=== PATIENT | male | born 1925 | race Caucasian/White ===

== ENCOUNTER → 2017-02-09 | Outpatient (CLI) | payer MEDICARE, OTHER ==
[~2017-02-09] MED LIST: ACET160L13 GT; AMIO200T2 GT; APIX5TAB GT; CYAN10009 GT; DIPH25CA84 GT; DORZ10DR15 RIGHT EYE; FERR220E3 GT; FOLI1TAB15 GT; HYDR118S10 GT; INSU100V8 SQ; IPRA3AMP AEROSOL; LATA2.5D7 BOTH EYES; LEVO50TA11 GT; LISI2.5T2 GT; METR500T GT; MICO5POW6 TOP; PYRI100T6 GT; RANI15SY GT; SALI45SP PO; THIA100T13 GT
== END ==
LOC: LABN.KB 11:01
PROVIDERS: ATTEND Family Medicine
DX: R19.5 Other fecal abnormalities (principal)
CPT/HCPCS: 82272

== ENCOUNTER 2017-03-28 18:03 | Inpatient (IN) ==
[2017-03-28] MEDS ORDERED: CEFTRIAXONE 1 G in NS 100 ML IV ONE (18:33)
--- NOTE | 2017-03-28 18:50 | Emergency Department Report ---
Asthma HPI - General Chief Complaint: Upper Respiratory Infection Stated Complaint: Dyspnea Time Seen by Provider: 03/28/17 18:20 Source: patient, RN notes reviewed Mode of arrival: wheelchair Limitations: no limitations - History of Present Illness HPI Narrative: 89yo man presented to the ER today by EMS for dyspnea. Pt has a h/o dyspnea, and uses 3L by NC at home. Today was c/o increasing dyspnea and fatigue; required 5L O2 to keep SaO2 above 88%. Has had a productive cough x months. States that he saw his PCM a few months ago and was dx'ed with 'walking PNA'. Was given meds to help. MD complaint: shortness of breath Onset (ago): month(s) Severity: severe, worse than usual Associated symptoms: productive cough, fever Asthma History: history of frequent attacks Treatments Prior to Arrival: inhaled bronchodilator, inhaled steroid, oxygen - Related Data Current Asthma Therapy: none Home Medications Medication Instructions Recorded Confirmed Amiodarone HCl 200 mg GT DAILY #0 12/09/16 03/28/17 Ferrous Sulfate 220 mg GT DAILY #0 12/09/16 03/28/17 Folic Acid 1 mg GT DAILY #0 12/09/16 03/28/17 Ipratropium/Albuterol Sulfate 1 vial AEROSOL QID PRN #0 12/09/16 03/28/17 [Iprat-Albut 0.5-3(2.5) mg/3 ml] Pyridoxine HCl (Vitamin B6) 100 mg GT DAILY #0 12/09/16 03/28/17 [Pyridoxine HCl] Thiamine HCl 100 mg GT DAILY #0 12/09/16 03/28/17 Cholecalciferol (Vitamin D3) 2,000 unit GT DAILY 03/28/17 03/28/17 [Vitamin D3] Cyanocobalamin (B-12) [Vitamin 1,000 mcg IM DAILY 03/28/17 03/28/17 B-12] Insulin Glargine [Lantus] 10 unit SQ HS 03/28/17 03/28/17 Lactobacillus Rhamnosus GG 1 each GT DAILY 03/28/17 03/28/17 [Culturelle] Levothyroxine Tab [Synthroid] 150 mcg GT DAILY 03/28/17 03/28/17 Mirtazapine 7.5 mg GT HS 03/28/17 03/28/17 Nut.tx.gluc.intoler,Lac-Fr,Soy 1,000 ml PO DAILY 03/28/17 03/28/17 [Glytrol] Omeprazole [Prilosec] 20 mg GT DAILY 03/28/17 03/28/17 Previous Rx's Medication Instructions Recorded diphenhydrAMINE HCl [Benadryl] 25 mg GT HS PRN #30 cap 12/16/16 Allergies Allergy/AdvReac Type Severity Reaction Status Date / Time amoxicillin Allergy Unknown Verified 03/29/17 05:45 vancomycin Allergy Unknown Verified 03/29/17 05:45 Review of Systems All systems: reviewed and negative except as stated Constitutional: Reports: fever Respiratory: Reports: cough PFSH Patient Stated Medical History Dysphagia Yes: HAS G TUBE Hypotension Yes Sleep Apnea Yes Other Respiratory Yes: HYPOXIA- ON 3 L/NC CONTINUOUSLY AT HOME Diabetes Mellitus Type 2 Yes Gastroesophageal Reflux Yes Disease COPD HTN Iron def anemia DM GERD Hypothyroid Insomnia Low Vit D Aspiration Physical Exam - Limitations Limitations: no limitations - General General appearance: alert, in no apparent distress - Head Head exam: atraumatic, normocephalic - Eye Eye exam: Present: normal appearance, PERRL, EOMI. Absent: scleral icterus - ENT ENT exam: Present: normal exam, normal oropharynx, mucous membranes moist, TM's normal bilaterally. Absent: mucous membranes dry - Neck Neck exam: Present: normal inspection, full ROM, trachea midline. Absent: tenderness, lymphadenopathy - Chest Chest inspection: Present: normal inspection, symmetric chest wall rise. Absent : tenderness, rash, abscess - Respiratory Respiratory exam: Present: wheezes, other (Rhonchi). Absent: normal lung sounds bilaterally, respiratory distress - Cardiovascular Cardiovascular exam: Present: regular rate, normal rhythm - Abdominal Exam Abdominal exam: Present: soft, normal bowel sounds. Absent: distention, tenderness, guarding, rebound, rigidity - Extremities Exam Extremities exam: Present: full ROM, normal capillary refill, other (Stasis dermatitis). Absent: tenderness, pedal edema - Back Exam Back exam: Present: normal inspection - Skin Skin exam: Present: warm, dry, intact, normal color, rash (Stasis dermatitis) - Neurological Exam Neurological exam: Present: alert, oriented X3, CN II-XII intact - Psychiatric Psychiatric exam: Present: normal affect, normal mood Course Course Narrative: 89yo man with elevated WBCs, 10% bandemia, low lactate, b/l pleural effusions, and elevated BNP. PaO2 is still low, despite Suspect PNA along with CHF exacerbation. Pt denies COPD, but meds are c/w diagnosis. May simply be a COPD exacerbation. Port score is 149. Will contact hospitalist for likely admission/ treatment. - Consultations Consultation #1: Nino Telemed Time: 20:57 Vital Signs Temperature 101.4 F H 03/28/17 18:03 Pulse Rate 91 03/28/17 18:03 Respiratory Rate 28 H 03/28/17 18:03 Blood Pressure 150/66 H 03/28/17 18:03 Pulse Oximetry 90 03/28/17 18:03 Temperature 97.7 F 03/29/17 04:00 Pulse Rate 75 03/29/17 05:30 Respiratory Rate 31 H 03/29/17 05:30 Blood Pressure 127/70 03/29/17 05:30 Pulse Oximetry 96 03/29/17 03:00 Dyspnea - Differential Diagnosis Differential diagnosis: Likely: Acute exacerbation, Pneumonia, COPD exacerbation , Pulmonary edema systolic, Pulmonary edema dystolic, Pneumothorax - Medical Records Attestation: I reviewed the patient's medical records. - Lab Data Attestation: I reviewed the patient's lab results. Result diagrams: 03/28/17 19:21 03/29/17 04:32 Lab Results 03/28/17 03/28/17 03/28/17 Range/Units 19:21 19:21 19:21 WBC 21.1 H (4.5-11.0) T/MM3 RBC 4.01 L (4.50-5.90) M/MM3 Hgb 13.0 L (13.5-17.5) GM/DL Hct 40.7 L (41-53) % MCV 101.5 H (80-100) UM3 MCH 32.4 (26-34) UUG MCHC 31.9 (31-37) GM/DL RDW Std Deviation 46.8 (36.9-50.2) FL Plt Count 228 (130-400) T/MM3 MPV 11.5 (9.4-12.4) UM3 Immature Gran % (Auto) Not performed Neut % (Auto) Not performed Lymph % (Auto) Not performed Josephine % (Auto) Not performed Eos % (Auto) Not performed Baso % (Auto) Not performed Neut # Not performed Lymph # Not performed Josephine # Not performed Baso # Not performed Abs Immat Gran (auto) Not performed Neutrophils % (Manual) 82.0 H (33-66) % Band Neutrophils % 10.0 H (0-6) % Lymphocytes % (Manual) 5.0 L (23-45) % Reactive Lymphs % 3.0 H (0-0) % Neutrophils # (Manual) 17.3 H (1.8-7.7) T/MM3 Band Neutrophils # 2.1 T/MM3 Lymphocytes # (Manual) 1.1 (1-4.8) T/MM3 Abs React Lymphs (Man) 0.6 H (0-0) T/MM3 RBC Morph Comment Normal INR 1.42 H (0.99-1.21) ABG pH (7.350-7.450) ABG pCO2 (34-45) MMHG ABG pO2 (80-100) MMHG ABG HCO3 (22-26) MEQ/L ABG Total CO2 (23-27) MEQ/L ABG O2 Saturation (95.0-98.0) % ABG Base Excess (-2.0-2.0) MMOL/L O2 Delivery Method FiO2 (liters per min) Turbidity (0-20) Sodium (134-144) MEQ/L Potassium (3.6-5) MEQ/L Chloride (98-107) MEQ/L Carbon Dioxide (22-30) MEQ/L Anion Gap (5-15) MEQ/L BUN (9-20) MG/DL Creatinine (0.8-1.5) MG/DL GFR Calculation BUN/Creatinine Ratio (6-26) RATIO Glucose (75-110) MG/DL Calculated Osmolality (261-280) MOSM/KG Calcium (8.4-10.2) MG/DL Total Bilirubin (0.20-1.30) MG/DL Icterus Index (0-7) AST (17-59) U/L ALT (21-72) U/L Alkaline Phosphatase (38-126) U/L Troponin I 0.022 (0-0.12) ng/ml B-Natriuretic Peptide 1030 H (0-175) pg/mL Total Protein (6.3-8.2) G/DL Albumin (3.5-5.0) G/DL Globulin (2.4-3.6) G/DL Albumin/Globulin Ratio (1.1-2.2) RATIO Plasma Lactate 1.5 (0.6-2.2) MMOL/L Specimen Hemolysis 15 (0-25) Ur Collection Type Urine Color (YELLOW) Urine Clarity Urine pH (5.0-8.0) Ur Specific [place] (1.015-1.025) Urine Protein (NEGATIVE) Urine Glucose (UA) (NEGATIVE) Urine Ketones (NEGATIVE) Urine Occult Blood (NEGATIVE) Urine Nitrate (NEGATIVE) Urine Bilirubin (NEGATIVE) Urine Urobilinogen (NORMAL) EU/DL Ur Leukocyte Esterase (NEGATIVE) Urinalysis Comment 03/28/17 03/28/17 03/28/17 Range/Units 19:21 19:43 20:29 WBC (4.5-11.0) T/MM3 RBC (4.50-5.90) M/MM3 Hgb (13.5-17.5) GM/DL Hct (41-53) % MCV (80-100) UM3 MCH (26-34) UUG MCHC (31-37) GM/DL RDW Std Deviation (36.9-50.2) FL Plt Count (130-400) T/MM3 MPV (9.4-12.4) UM3 Immature Gran % (Auto) Neut % (Auto) Lymph % (Auto) Josephine % (Auto) Eos % (Auto) Baso % (Auto) Neut # Lymph # Josephine # Baso # Abs Immat Gran (auto) Neutrophils % (Manual) (33-66) % Band Neutrophils % (0-6) % Lymphocytes % (Manual) (23-45) % Reactive Lymphs % (0-0) % Neutrophils # (Manual) (1.8-7.7) T/MM3 Band Neutrophils # T/MM3 Lymphocytes # (Manual) (1-4.8) T/MM3 Abs React Lymphs (Man) (0-0) T/MM3 RBC Morph Comment INR (0.99-1.21) ABG pH 7.440 (7.350-7.450) ABG pCO2 42 (34-45) MMHG ABG pO2 55 L (80-100) MMHG ABG HCO3 29 H (22-26) MEQ/L ABG Total CO2 29.8 H (23-27) MEQ/L ABG O2 Saturation 89.0 L (95.0-98.0) % ABG Base Excess 3.9 H (-2.0-2.0) MMOL/L O2 Delivery Method Nasal cannula, liter FiO2 (liters per min) 4 Turbidity 20 (0-20) Sodium 145 H (134-144) MEQ/L Potassium 4.9 (3.6-5) MEQ/L Chloride 105 (98-107) MEQ/L Carbon Dioxide 25 (22-30) MEQ/L Anion Gap 15 (5-15) MEQ/L BUN 46.0 H (9-20) MG/DL Creatinine 0.8 (0.8-1.5) MG/DL GFR Calculation 91 BUN/Creatinine Ratio 58 H (6-26) RATIO Glucose 258 H (75-110) MG/DL Calculated Osmolality 300 H (261-280) MOSM/KG Calcium 9.8 (8.4-10.2) MG/DL Total Bilirubin 0.40 (0.20-1.30) MG/DL Icterus Index 2 (0-7) AST 45 (17-59) U/L ALT 109 H (21-72) U/L Alkaline Phosphatase 178 H (38-126) U/L Troponin I (0-0.12) ng/ml B-Natriuretic Peptide (0-175) pg/mL Total Protein 7.0 (6.3-8.2) G/DL Albumin 3.8 (3.5-5.0) G/DL Globulin 3.2 (2.4-3.6) G/DL Albumin/Globulin Ratio 1.2 (1.1-2.2) RATIO Plasma Lactate (0.6-2.2) MMOL/L Specimen Hemolysis 15 (0-25) Ur Collection Type Urine, catheter Urine Color Yellow (YELLOW) Urine Clarity Clear Urine pH 5.5 (5.0-8.0) Ur Specific [place] 1.015 (1.015-1.025) Urine Protein Negative (NEGATIVE) Urine Glucose (UA) Negative (NEGATIVE) Urine Ketones Negative (NEGATIVE) Urine Occult Blood Negative (NEGATIVE) Urine Nitrate Negative (NEGATIVE) Urine Bilirubin Negative (NEGATIVE) Urine Urobilinogen 0.2 (NORMAL) EU/DL Ur Leukocyte Esterase Negative (NEGATIVE) Urinalysis Comment Microscopic not ind. - Radiology Data Attestation: I reviewed the patient's radiology results. B/l pleural effusions. - ECG Data Tracing #1 I reviewed this ECG and interpreted as documented below: DC/QRS/ST segment/T wave changes: non-specific ST-T wave changes Conduction abnormalities present: RBBB, 1st degree AV block Additional comments: Right axis deviation. Critical Care Time Critical Care Time: Yes Total Critical Care Time: 45 Attestation: 45 min of critical care time assigned to this case due to its urgency, complexity of decision making, need for continued patient re-evaluation, or resources devoted to stabilizing the patient. Disposition Clinical Impression: SEPSIS Disposition: 02 To [facility] [place] Acute Care Condition: Stable Time of Disposition: 21:30 - Seen By: physician
[2017-03-28] MEDS: 1/2 NS 1,000 ML IV SCH (19:10)
[2017-03-28] MEDS ORDERED: FUROSEMIDE 40 MG/4 ML INJECTION IVP ONE (19:16)
[2017-03-28] MEDS: LEVOFLOXACIN PREMIX 750 MG/150 ML BAG IV SCH (20:12)
[2017-03-28] MEDS ORDERED: ONDANSETRON 4 MG/2 ML INJECTION IVP PRN (21:06)
[2017-03-28] MEDS ORDERED: PROMETHAZINE 25 MG INJECTION IVP PRN (21:06)
[2017-03-28] MEDS ORDERED: NS 1,000 ML IV SCH (21:15)
--- NOTE | 2017-03-28 23:06 | History & Physical Report ---
History of Present Illness Date: Chief complaint: shortness of breath/cough HPI: Please note that the patient was seen with nursing assistance on 03/28/2017. Mr. Philip is a 89yo man with history of HTN, diastolic CHF, DM2 on insulin, dysphagia from ? with feeding tube, chronic hypoxic respiratory failure from ?, and hypothyroidism presenting with 1-2 days of cough at his SNF with then today fever. Patient denies pain or nausea, but does recognize cough and fever. He denies medication changes, but is not greatly informed regarding his past history or medicaitons, and states "they don't tell me anything." Review of Systems ROS unobtainable: due to mental status Review of systems: 10+ systems negative aside form in HPI [facility] Medical History Updates: Essential HTN. DM2. Hypothyroidism. Chronic hypoxic respiratory failure Family History: CAD Smoking status: Unknown if ever smoked Alcohol intake frequency: does not drink Current occupational exposures/hazards: No Does patient use chewing tobacco?: No Current residence[place] Medications Home Medications Medication Instructions Recorded Confirmed Type Amiodarone HCl 200 mg GT DAILY #0 12/09/16 03/28/17 History Ferrous Sulfate 220 mg GT DAILY #0 12/09/16 03/28/17 History Folic Acid 1 mg GT DAILY #0 12/09/16 03/28/17 History Ipratropium/Albuterol Sulfate 1 vial AEROSOL QID PRN #0 12/09/16 03/28/17 History [Iprat-Albut 0.5-3(2.5) mg/3 ml] Pyridoxine HCl (Vitamin B6) 100 mg GT DAILY #0 12/09/16 03/28/17 History [Pyridoxine HCl] Thiamine HCl 100 mg GT DAILY #0 12/09/16 03/28/17 History Cholecalciferol (Vitamin D3) 2,000 unit GT DAILY 03/28/17 03/28/17 History [Vitamin D3] Cyanocobalamin (B-12) [Vitamin 1,000 mcg IM DAILY 03/28/17 03/28/17 History B-12] Insulin Glargine [Lantus] 10 unit SQ HS 03/28/17 03/28/17 History Lactobacillus Rhamnosus GG 1 each GT DAILY 03/28/17 03/28/17 History [Culturelle] Levothyroxine Tab [Synthroid] 150 mcg GT DAILY 03/28/17 03/28/17 History Mirtazapine 7.5 mg GT HS 03/28/17 03/28/17 History Nut.tx.gluc.intoler,Lac-Fr,Soy 1,000 ml PO DAILY 03/28/17 03/28/17 History [Glytrol] Omeprazole [Prilosec] 20 mg GT DAILY 03/28/17 03/28/17 History Allergies Allergy/AdvReac Type Severity Reaction Status Date / Time amoxicillin Allergy Unknown Verified 10/28/16 17:09 vancomycin Allergy Unknown Verified 10/28/16 17:09 Exam Vital Signs: Temp Pulse Resp BP Pulse Ox 98.0 F 92 30 H 157/92 H 92 03/28/17 22:15 03/28/17 22:20 03/28/17 22:15 03/28/17 22:15 03/28/17 22:53 Telemetry Rhythm: Sinus Rhythm Height: 1.73 m Weight: 62.9 kg Body Mass Index: 21.0 - Constitutional Present: no acute distress, well developed, disheveled, cooperative - Routine HEENT Exam Head: Present: normocephalic Eye: Present: EOMI - Routine Respiratory Exam Present: decreased breath sounds, rhonchi - Routine Cardiovascular Exam Present: RRR, murmur - Routine Abdominal Exam Present: soft, normoactive bowel sounds Comments: PEG tube in place - Routine Extremities Exam Absent: cyanosis - Routine Neurological Exam Present: alert, oriented X3, moving all extremities Results - Labs CBC & Chem 7: 03/28/17 19:21 03/28/17 19:21 - ABG Interpretation ABG results: 7.44/42/55 on 5L instead of normal 3 Assessment and Plan (1) HCAP (healthcare-associated pneumonia) Current visit: Yes Status: Acute Due to allergies start with Rocephin and Levaquin, although Azactam a consideration. RT protocols, NPO, Nebs, cautious 1/2 NS with not severe sepsis but near hypernatremia as well with tube feeds/no drink to thirst (2) Sepsis Current visit: Yes Status: Acute not severe sepsis, monitor with BP fine. Note T over 38.3 with Pulse over 90 and WBC 21.1 (3) Chronic respiratory failure with hypoxia Current visit: Yes Status: Acute acute worsening, monitor in ICU as full code by hx. (4) Hypothyroid Current visit: Yes Status: Acute same med (5) Dysphagia Current visit: Yes Status: Acute uncertain cause, aspiraton risk most definitely (6) DM2 (diabetes mellitus, type 2) Current visit: Yes Status: Acute SSI, CBGs, long acting insulin 10units qhs and monitor with A1C in the AM Sepsis Assessment - Focused Exam Vital Signs Temp Pulse Resp BP Pulse Ox 03/28/17 22:53 92 03/28/17 22:20 92 03/28/17 22:15 98.0 F 92 30 H 157/92 H 90 Hospital Course Summary Disclaimer: The visit summary below is not to be considered part of the above Progress Note.
[2017-03-28] MEDS: IPRATROPIUM/ALBUTEROL 2.5mg-0.5mg/3ml NEB IH SCH (23:35)
[2017-03-29] MEDS ORDERED: HYDRALAZINE 20 MG/ML INJECTION IVP PRN (00:27)
[2017-03-29] MEDS: IPRATROPIUM/ALBUTEROL 2.5mg-0.5mg/3ml NEB IH SCH ×4 (06:57→21:03)
[2017-03-29] MEDS: 1/2 NS 1,000 ML IV SCH ×3 (08:49→22:12)
[2017-03-29] MEDS: AMIODARONE 200 MG TABLET GT SCH (09:07)
[2017-03-29] MEDS: LEVOTHYROXINE 150 MCG TABLET GT SCH (09:07)
--- NOTE | 2017-03-29 09:11 | XRay Report ---
INDICATION: Sepsis w/u PROCEDURE: CHEST 2-VIEWS UPRIGHT (PA & LAT) Encounter: Initial COMPARISON: December 11, 2016 FINDINGS: Increasing small bilateral pleural effusions. Bibasilar airspace opacities are similar. No pneumothorax. Heart size and mediastinal contours are stable. Pulmonary vascularity is more congested. Impression: Worsening in moderate congestive failure. .
[2017-03-29] MEDS ORDERED: LEVOFLOXACIN PREMIX 750 MG/150 ML BAG IV SCH (10:00)
[2017-03-29] MEDS: CEFTRIAXONE 1 G in NS 100 ML IV SCH (11:18)
--- NOTE | 2017-03-29 12:07 | Progress Note ---
Subjective: is sleepy this am not answering questions clearly. Nurse reports the pt was recently awake and responding well. Objective Vital signs: Temp Pulse Resp BP Pulse Ox 97.7 F 79 110 H 133/66 99 03/29/17 04:00 03/29/17 06:00 03/29/17 11:15 03/29/17 06:00 03/29/17 11:15 Body Mass Index: 21.0 - Constitutional Present: no acute distress, well developed, disheveled, cooperative - Routine HEENT Exam Head: Present: normocephalic, atraumatic Eye: Absent: scleral injection ENT: Present: mucous membranes moist - Routine Respiratory Exam Present: decreased breath sounds, wheezes - Routine Cardiovascular Exam Present: RRR. Absent: murmur - Routine Abdominal Exam Present: soft, non tender - Routine Extremities Exam Present: edema. Absent: cyanosis, clubbing - Routine Skin Exam Present: intact, dry Results - Labs CBC & Chem 7: 03/28/17 19:21 03/29/17 04:32 Labs: BMP 03/29/17 04:32 Sodium 145 H Potassium 3.8 D Chloride 110 H Carbon Dioxide 24 BUN 39.0 H Creatinine 0.8 Glucose 183 H Calcium 7.6 L D Cardiac Enzymes 03/29/17 Range/Units 04:32 Troponin I 0.106 D (0-0.12) ng/ml Assessment and Plan (1) HCAP (healthcare-associated pneumonia) Current visit: Yes Status: Acute (2) Sepsis Current visit: Yes Status: Acute (3) Chronic respiratory failure with hypoxia Current visit: Yes Status: Acute (4) Hypothyroid Current visit: Yes Status: Acute (5) Dysphagia Current visit: Yes Status: Acute (6) DM2 (diabetes mellitus, type 2) Current visit: Yes Status: Acute Assessment and Plan: Sepsis -Likely 2/2 CAP with clinical sx's although CXR does not show clear infiltrate but difficult to assess d/t effusions -WBC 21K, tachypnea -Order-->Blood & Sputum GS/cx's, procalcitoin -Tx-->Rocephin + Levaquin D1 -BPs stable, likely fluid overloaded with CHF component, will try careful diuresis Acute on chronic hypoxic respiratory failure -COPD exacerbation? vs. CHF exacerbation? -Unclear etiology for chronic, unclear if hx of COPD? -Last echo 09/2016 showed EF 50%, BNP 1030, will order echo, will try bumex 1mg BID and monitor UOP -Reportedly uses 3L O2 at home, was on 8L overnight but currently at 4L -Improving, cont. RCAT, CAP tx per above Afib -Cont. home amio -No BB?, CHADVASC 4 (hx of DM and HTN listed in previous notes but no meds noted on home meds) -No ASA or anti-coagulation? Hypothyroid -Cont. home levothyroxine Ppx -Lovenox -Cont. home PPI Sepsis Assessment - Evaluation Sepsis screening result: No Definite Risk - Focused Exam Vital Signs Temp Pulse Resp BP Pulse Ox 03/29/17 11:15 110 H 99 03/29/17 06:50 24 100 03/29/17 06:28 28 H 03/29/17 06:00 79 28 H 133/66 97 03/29/17 05:30 75 31 H 127/70 03/29/17 04:30 82 30 H 149/82 H 03/29/17 04:00 97.7 F 80 28 H 149/82 H 03/29/17 03:00 71 28 H 136/98 H 96 03/29/17 02:30 70 28 H 134/59 95 03/29/17 02:00 71 35 H 102/57 94 03/29/17 01:45 73 28 H 103/61 96 03/29/17 01:30 76 32 H 104/61 95 03/29/17 01:15 78 34 H 122/58 93 03/29/17 01:00 80 40 H 184/79 H 95 03/29/17 00:45 80 42 H 188/89 H 97 03/29/17 00:30 82 42 H 182/83 H 81 L 03/29/17 00:15 84 40 H 201/101 H 99 Respiratory exam: Present: decreased breath sounds, rhonchi Cardiovascular exam: Present: RRR, murmur Hospital Course Summary Disclaimer: The visit summary below is not to be considered part of the above Progress Note.
[2017-03-29] MEDS ORDERED: IPRATROPIUM/ALBUTEROL 2.5mg-0.5mg/3ml NEB AEROSOL PRN (12:36)
[2017-03-29] MEDS: ENOXAPARIN 40 MG/0.4 ML INJECTION SQ SCH (17:12)
[2017-03-29] MEDS ORDERED: LEVOFLOXACIN PREMIX 750 MG/150 ML BAG IV ONE (18:29)
[2017-03-29] MEDS: LEVOFLOXACIN PREMIX 750 MG/150 ML BAG IV SCH (20:10)
[2017-03-29] MEDS: MIRTAZAPINE 15 MG TABLET PO SCH (22:43)
[2017-03-29] MEDS: INSULIN GLARGINE 100unit/ml INJECTION SQ SCH ×2 (22:44→22:51)
[2017-03-30] MEDS: DiphenhydrAMINE 25 MG CAPSULE PO PRN ×2 (01:19→21:54)
[2017-03-30] MEDS: 1/2 NS 1,000 ML IV SCH (02:21)
[2017-03-30] MEDS: LEVOTHYROXINE 150 MCG TABLET GT SCH ×2 (05:19→05:43)
[2017-03-30] MEDS: AMIODARONE 200 MG TABLET GT SCH ×2 (05:20→21:51)
[2017-03-30] MEDS ORDERED: D5-1/2NS 1,000 ML IV SCH (06:30)
[2017-03-30] MEDS: IPRATROPIUM/ALBUTEROL 2.5mg-0.5mg/3ml NEB IH SCH ×4 (06:36→19:52)
[2017-03-30] MEDS: PYRIDOXINE 100mg TABLET GT SCH (09:09)
[2017-03-30] MEDS: OMEPRAZOLE 20 MG CAPSULE GT SCH (09:09)
[2017-03-30] MEDS: FOLIC ACID 1 MG TABLET GT SCH (09:09)
[2017-03-30] MEDS: CEFTRIAXONE 1 G in NS 100 ML IV SCH (09:10)
--- NOTE | 2017-03-30 10:03 | Progress Note ---
Subjective: Pt seems to be doing better this am. Pt is alert and oriented and reports he feels better. Denies any cp, n/v/d, f/c. Objective Vital signs: Temp Pulse Resp BP Pulse Ox 97.5 F 92 28 H 96/54 100 03/30/17 08:00 03/30/17 09:25 03/30/17 09:25 03/30/17 09:15 03/30/17 09:25 Weight: 64 kg - Constitutional Present: no acute distress, well developed, disheveled, cooperative - Routine HEENT Exam Eye: Present: EOMI. Absent: scleral injection ENT: Present: mucous membranes moist - Routine Respiratory Exam Present: decreased breath sounds. Absent: wheezes - Routine Cardiovascular Exam Present: RRR, no murmur - Routine Abdominal Exam Present: soft, non distended, non tender - Routine Extremities Exam Present: edema. Absent: cyanosis, clubbing - Routine Skin Exam Present: dry. Absent: erythema Results - Labs CBC & Chem 7: 03/30/17 04:52 03/30/17 04:52 Labs: Short CBC 03/29/17 03/30/17 Range/Units 04:32 04:52 WBC 19.1 H 11.6 H (4.5-11.0) T/MM3 Hgb 10.9 L D 9.8 L (13.5-17.5) GM/DL Hct 34.8 L D 30.6 L D (41-53) % Plt Count 189 176 (130-400) T/MM3 BMP 03/30/17 04:52 Sodium 140 Potassium 3.8 Chloride 105 Carbon Dioxide 24 BUN 44.0 H Creatinine 1.0 D Glucose 72 L Calcium 8.8 D Liver Function 03/30/17 Range/Units 04:52 Albumin 2.9 L (3.5-5.0) G/DL Assessment and Plan (1) HCAP (healthcare-associated pneumonia) Current visit: Yes Status: Acute (2) Sepsis Current visit: Yes Status: Acute (3) Chronic respiratory failure with hypoxia Current visit: Yes Status: Acute (4) Hypothyroid Current visit: Yes Status: Acute (5) Dysphagia Current visit: Yes Status: Acute (6) DM2 (diabetes mellitus, type 2) Current visit: Yes Status: Acute Assessment and Plan: Sepsis -Much improved -Likely 2/2 CAP with clinical sx's although CXR does not show clear infiltrate but difficult to assess d/t effusions -Blood cx's NGTD, Sputum cx's-->Psuedomonas, await sensitivities -Tx-->Rocephin + Levaquin D2 -BPs stable, likely fluid overloaded with CHF component, will try careful diuresis Acute on chronic hypoxic respiratory failure -COPD exacerbation? vs. CHF exacerbation? -Unclear etiology for chronic hypoxia, unclear if hx of COPD? -Last echo 09/2016 showed EF 50%, BNP 1030 on admission now 8K, echo pending, will try bumex 1mg again today -Reportedly uses 3L O2 at home, currently on 4L O2 -Improving, cont. RCAT, CAP tx per above Afib -Cont. home amio -No BB?, CHADVASC 4 (hx of DM and HTN listed in previous notes but no meds noted on home meds) -No ASA or anti-coagulation? Hypothyroid -Cont. home levothyroxine Ppx -Lovenox -Cont. home PPI Sepsis Assessment - Evaluation Sepsis screening result: No Definite Risk - Focused Exam Vital Signs Temp Pulse Resp BP Pulse Ox 03/30/17 09:25 92 28 H 100 03/30/17 09:20 81 24 100 03/30/17 09:15 96/54 03/30/17 09:10 76 28 H 97 03/30/17 08:00 97.5 F 83 27 H 101/54 98 03/30/17 07:53 84 03/30/17 06:38 20 97 03/30/17 04:05 98.1 F 96 32 H 84/53 94 03/30/17 04:00 110 H 03/30/17 00:10 98.6 F 89 33 H 92/51 97 03/30/17 00:00 86 Respiratory exam: Present: decreased breath sounds, rhonchi Cardiovascular exam: Present: RRR, murmur Hospital Course Summary Disclaimer: The visit summary below is not to be considered part of the above Progress Note. Hospital Course: 03/31/2017 Pt was admitted by telemedicine team overnight for 1-2 days of cough and sputum production. Pt qualified for sepsis criteria and was admitted for sepsis 2/2 pna. 03/30/17 -Pt improving, sputum cx grew out pseudomonas, will cont. current abx until sensitivities result, will plan on getting pt out of icu later today. Will continue to do gentle diuresis to try to get pt to euvolemia.
[2017-03-30] MEDS: ENOXAPARIN 40 MG/0.4 ML INJECTION SQ SCH (10:19)
[2017-03-30] MEDS: LEVOFLOXACIN PREMIX 750 MG/150 ML BAG IV SCH (21:08)
[2017-03-30] MEDS: MIRTAZAPINE 15 MG TABLET PO SCH (21:48)
[2017-03-30] MEDS: INSULIN GLARGINE 100unit/ml INJECTION SQ SCH (21:54)
[2017-03-31] MEDS: SALINE FLUSH 10ml SYRINGE IVF PRN ×2 (00:10→21:41)
[2017-03-31] MEDS: LEVOTHYROXINE 150 MCG TABLET GT SCH (06:12)
[2017-03-31] MEDS: IPRATROPIUM/ALBUTEROL 2.5mg-0.5mg/3ml NEB IH SCH ×2 (06:32→20:15)
--- NOTE | 2017-03-31 07:59 | XRay Report ---
Indication: follow up pna/effusion PROCEDURE: XR chest 1V: Encounter: Initial Comparison: March 28, 2017 Findings: Persistent lower lobe airspace consolidation, right greater than left. Small bilateral pleural effusions are grossly stable. Upper lung michelle are clear. No pneumothorax. Heart size and mediastinal contours are stable. Pulmonary vascularity is less congested. Old rib fractures. Impression: Decreasing pulmonary edema with persistent lower lobe infiltrates possibly due to pneumonia. .
[2017-03-31] MEDS: FOLIC ACID 1 MG TABLET GT SCH (08:03)
[2017-03-31] MEDS: AMIODARONE 200 MG TABLET GT SCH ×2 (08:06→21:20)
[2017-03-31] MEDS: PYRIDOXINE 100mg TABLET GT SCH (08:07)
[2017-03-31] MEDS: ENOXAPARIN 40 MG/0.4 ML INJECTION SQ SCH (08:08)
[2017-03-31] MEDS: OMEPRAZOLE 20 MG CAPSULE GT SCH (08:08)
[2017-03-31] MEDS ORDERED: AMIODARONE 200 MG TABLET GT SCH (09:00)
[2017-03-31] MEDS: CEFTRIAXONE 1 G in NS 100 ML IV SCH (12:17)
[2017-03-31] MEDS: BUMETANIDE 1 MG TABLET PO SCH (12:57)
--- NOTE | 2017-03-31 14:17 | Progress Note ---
Subjective: Pt alert and oriented this am and reports he feels better. Still does report cough and sputum production but sob is better and he is currently off O2. Denies any cp, n/v/d, f/c. Objective Vital signs: Temp Pulse Resp BP Pulse Ox 98.4 F 81 18 108/58 95 03/31/17 13:30 03/31/17 13:30 03/31/17 13:30 03/31/17 13:30 03/31/17 13:30 Height: 1.73 m Weight: 64 kg Body Mass Index: 21.4 - Constitutional Present: no acute distress, well developed, cooperative - Routine HEENT Exam Eye: Absent: conjunctival icterus, scleral injection - Routine Respiratory Exam Present: decreased breath sounds. Absent: respiratory distress, stridor, wheezes - Routine Cardiovascular Exam Present: RRR. Absent: murmur - Routine Abdominal Exam Present: soft, non tender. Absent: distended - Routine Extremities Exam Present: edema. Absent: cyanosis, clubbing - Routine Skin Exam Present: dry. Absent: cyanosis, erythema Results - Labs CBC & Chem 7: 03/31/17 05:07 03/31/17 05:07 Labs: Short CBC 03/31/17 Range/Units 05:07 WBC 7.0 (4.5-11.0) T/MM3 Hgb 10.0 L (13.5-17.5) GM/DL Hct 32.0 L (41-53) % Plt Count 177 (130-400) T/MM3 BMP 03/31/17 05:07 Sodium 144 Potassium 3.4 L Chloride 107 Carbon Dioxide 26 BUN 42.0 H Creatinine 1.1 Glucose 98 Calcium 9.1 Liver Function 03/31/17 Range/Units 05:07 Albumin 2.9 L (3.5-5.0) G/DL Assessment and Plan (1) HCAP (healthcare-associated pneumonia) Current visit: Yes Status: Acute (2) Sepsis Current visit: Yes Status: Acute (3) Chronic respiratory failure with hypoxia Current visit: Yes Status: Acute (4) Hypothyroid Current visit: Yes Status: Acute (5) Dysphagia Current visit: Yes Status: Acute (6) DM2 (diabetes mellitus, type 2) Current visit: Yes Status: Acute Assessment and Plan: Sepsis -Resolved -Likely 2/2 CAP with cxr showing likely right sided infiltrate and clinically pt fits pna -Blood cx's NGTD, Sputum cx's-->Psuedomonas and Haemophilus Infl., awaiting sensitivities -Tx-->Rocephin D3 + Levaquin(switching to PO) D3, can likely do levaquin but will await final sensitivities on both organisms before stopping rocephin -BPs stable, likely fluid overloaded with CHF component, will try careful diuresis Acute on chronic hypoxic respiratory failure -COPD exacerbation? vs. CHF exacerbation? -Unclear etiology for chronic hypoxia, unclear if hx of COPD? -Last echo 09/2016 showed EF 50%, BNP 1030 on admission now 8K, echo pending -Daily Bumex 1mg seems to have helped, CXR improved -Reportedly uses 3L O2 at home, currently on RA -Improving, cont. RCAT, CAP tx per above Afib -Pt was intermittently getting hypotensive/RVR so increased Amio to 200mg BID--> doing much better now -No BB?, CHADVASC 4 (if counting hx of DM and HTN as listed in previous notes but no meds noted on home meds) -No ASA or anti-coagulation? -Pt does have AV block on ECG so BB possibly could make that worse Hypothyroid -Cont. home levothyroxine Ppx -Lovenox -Cont. home PPI Sepsis Assessment - Evaluation Sepsis screening result: No Definite Risk - Focused Exam Vital Signs Temp Pulse Resp BP Pulse Ox 03/31/17 13:30 98.4 F 81 18 108/58 95 03/31/17 11:20 25 H 98 03/31/17 11:00 120/58 03/31/17 10:30 119/56 03/31/17 10:00 118/56 03/31/17 09:30 110/73 03/31/17 09:00 106/59 03/31/17 08:30 95/50 03/31/17 08:00 103/56 03/31/17 07:30 110/55 03/31/17 07:00 114/53 03/31/17 06:30 105/54 03/31/17 06:25 26 H 98 03/31/17 06:00 114/62 03/31/17 05:30 112/55 03/31/17 05:00 102/52 06/06/17 04:30 102/55 03/31/17 04:08 117/62 03/31/17 04:00 98.1 F 108 H 45 H 117/62 93 03/31/17 03:30 98/53 03/31/17 03:00 90/51 03/31/17 02:30 92/54 Respiratory exam: Present: decreased breath sounds, rhonchi Cardiovascular exam: Present: RRR, murmur Capillary refill: > 3 Seconds Hospital Course Summary Disclaimer: The visit summary below is not to be considered part of the above Progress Note. Hospital Course: 03/31/2017 Pt was admitted by telemedicine team overnight for 1-2 days of cough and sputum production. Pt qualified for sepsis criteria and was admitted for sepsis 2/2 pna. 03/30/17 -Pt improving, sputum cx grew out pseudomonas, will cont. current abx until sensitivities result, will plan on getting pt out of icu later today. Will continue to do gentle diuresis to try to get pt to euvolemia. 03/31/17 -Pt seems to be doing great today as he is alert and oriented and conversant. Sputum cx grew out psuedomonas and Haemophilus, sensitivities for Haemophilus is pending, will cont. levaquin and rocehpin for now. Pt's BP were on the low end likely 2/2 poorly controlled afib so kept pt in the icu one more night and amio was increased and since then they have done well. Pt will be transferred to floor today and possibly can be discharged tomorrow. Decision needs to be made about anti-coagulation for pt for afib on discharge, unclear who is managing pt's afib.
[2017-03-31] MEDS ORDERED: POTASSIUM CHLORIDE 20 MEQ/15 ML ORAL LIQUID GT ONE (15:29)
[2017-03-31] MEDS: MIRTAZAPINE 15 MG TABLET PO SCH (21:19)
[2017-03-31] MEDS: INSULIN GLARGINE 100unit/ml INJECTION SQ SCH (21:40)
[2017-04-01] MEDS: LEVOTHYROXINE 150 MCG TABLET GT SCH (05:29)
[2017-04-01] MEDS ORDERED: LEVOFLOXACIN 750 MG TABLET PO SCH (06:30)
[2017-04-01] MEDS: ENOXAPARIN 40 MG/0.4 ML INJECTION SQ SCH (08:27)
[2017-04-01] MEDS: PYRIDOXINE 100mg TABLET GT SCH (08:30)
[2017-04-01] MEDS: BUMETANIDE 1 MG TABLET PO SCH (08:30)
[2017-04-01] MEDS: OMEPRAZOLE 20 MG CAPSULE GT SCH (08:32)
[2017-04-01] MEDS: FOLIC ACID 1 MG TABLET GT SCH (08:33)
[2017-04-01] MEDS ORDERED: AMIODARONE 200 MG TABLET GT SCH (09:00)
[2017-04-01] MEDS ORDERED: LANSOPRAZOLE SOLU-TAB 15 MG TABLET PO SCH (09:00)
[2017-04-01] MEDS: CEFTRIAXONE 1 G in NS 100 ML IV SCH (09:55)
--- NOTE | 2017-04-01 11:10 | Echocardiogram ---
DATE 03/30/2017 INDICATION Congestive heart failure. TECHNICAL QUALITY: Technically fair 2D, M-mode and Doppler echocardiographic images were submitted for interpretation. FINDINGS 1. CARDIAC CHAMBERS. Left -sided cardiac chamber are normal in size. Left atrium measures 3.9 cm. Right-sided chambers appear somewhat prominent without enlargement based on measurements. Aortic root diameter is normal. 2. LV FUNCTION. Wall thickness is normal. Wall motion analysis is normal. The left ventricle actually is hyperdynamic. Ejection fraction is estimated at 75-80 %. RV contractility appears good. 3. VALVES. Aortic valve is calcified. Valve opening is normal. Mitral valve exhibits mild sclerosis, normal valve excursion. Tricuspid valve structure and motion appear normal, normal valve excursion. 4. DOPPLER. Doppler shows trace regurgitation involving all four valves. Normal flow velocities throughout. Mild diastolic dysfunction Grade I/IV. 5. Small circumferential pericardial effusion is present without a tamponade physiology. Left-sided pleural effusion is present. IMPRESSION 1. Normal LV systolic function with mild diastolic dysfunction, normal for age. Ejection fraction of 75%. 2. Sclerotic changes of the aortic and mitral valves. 3. No significant valvular dysfunction. 4. Small pericardial effusion without tamponade. 5. Systolic PA pressure is estimated at 30 mmHg. MTDD
--- NOTE | 2017-04-01 11:38 | Discharge Summary ---
Discharge Information Date of admission: 03/28/17 21:06 Anticipated date of discharge: 04/01/17 Attending Physician: Don Gonzales MD Primary care physician: Harry Guillen MD - Discharge Diagnosis (1) HCAP (healthcare-associated pneumonia) Problem Details: Pseudomonas and H. influenza Status: Acute (2) Acute and chronic respiratory failure ([id number]) Qualifiers: Respiratory failure complication: hypoxia Qualified Code(s): J96.21 - Acute and chronic respiratory failure with hypoxia Status: Acute (3) Sepsis Status: Acute (4) Atrial fibrillation Qualifiers: Atrial fibrillation type: chronic Qualified Code(s): I48.2 - Chronic atrial fibrillation Problem Details: intermittent RVR with hypotension Status: Chronic (5) Chronic respiratory failure with hypoxia Status: Chronic (6) Hypothyroid Qualifiers: Hypothyroidism type: unspecified Qualified Code(s): E03.9 - Hypothyroidism , unspecified Status: Chronic (7) Dysphagia Qualifiers: Dysphagia type: unspecified Qualified Code(s): R13.10 - Dysphagia, unspecified Status: Chronic (8) DM2 (diabetes mellitus, type 2) Qualifiers: Diabetes mellitus complication status: with kidney complications Diabetes mellitus complication detail: with chronic kidney disease 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 No significant valvular dysfunction was present. PA pressure 30 mm. - Laboratory Labs: 04/01/17 04:34 04/01/17 04:34 Admission white count 21.1 with 82% neutrophils, 10% bands, 5% lymphocytes, 3% reactive lymphocytes. Hemoglobin 13.0 on admission. Blood gas on admission 7.44/42/55/26 sat 89% on 4L O2. BNP 1030 on admission increasing to 8960 the following day. Lactic acid and procalcitonin were minimally elevated on admission at 0.8 and 1.98 respectively. - Microbiology Blood cultures drawn 03/28 2 negative at discharge. Urine culture from admission with low colony count corynebacterium species consistent with contaminant. Sputum culture obtained 03/28 Microbiology 03/28/17 19:23 Sputum, Expectorated Gram Stain - Final 03/28/17 19:23 Sputum, Expectorated Sputum Culture - Final Pseudomonas aeruginosa-sensitive to Levaquin Haemophilus influenzae Normal Respiratory Yadira - Radiology Radiology: Chest x-ray on admission revealed increased pulmonary vascularity and questionable worsening CHF. Follow-up film on 03/31 demonstrated improvement in vascular markings but persistent left lower lobe infiltrate suggestive of pneumonia. History of Present Illness HPI: Mr. Philip is an 89-year-old male with history of hypertension, diastolic CHF, diabetes mellitus on insulin, dysphasia with a feeding tube, and chronic hypoxic respiratory failure. He presented with 1-2 days of cough from a [facility] facility followed by onset of fever and worsening hypoxia. Oxygen had increased from 3 L chronically to 5 L to maintain saturation above 88% at the nursing facility. Patient denied pain or nausea but was aware of increased fever in conjunction with worsening cough. He denied recent medication changes. Marked leukocytosis with left shift was present on evaluation in the emergency room. Hospital Course Hospital course: Patient was admitted to the ICU with pneumonia, sepsis, and acute/chronic hypoxic respiratory failure. He was initially treated with Rocephin and Levaquin in conjunction with hypotonic fluids due to presence of hypernatremia on presentation. Up to 8 L supplemental oxygen was necessary to maintain adequate oxygenation on admission. Nutritional support with tube feedings was continued. Chest x-ray on admission did not reveal focal infiltrate however clinical signs and symptoms were consistent with pneumonia and antibiotics continued throughout the hospitalization. Sputum Gram stain demonstrated many neutrophils and culture was positive for moderate growth of Pseudomonas and heavy growth of Haemophilus influenza. Dual antibiotics were continued through at which time they were narrowed to Levaquin as a single antibiotic to complete 1 week therapy after discharge to [facility] [place] [facility]. On second hospital day the patient was noted to be fluid overloaded and was diuresed. Echocardiogram obtained demonstrating preserved LV function. The patient was in atrial fibrillation as has been true since September 2016. Oxygenation improved progressively with treatment of pneumonia and diuresis. Chest x-ray demonstrated improvement in vascular markings with diuresis and he is discharged on Bumex 1 mg daily and off O2. He will require follow-up to reassess renal function and to modify dose of diuretic in the near future. Although the patient is known to have chronic atrial fibrillation he had episodic rapid ventricular rates during the hospitalization with associated low blood pressures. Amiodarone was briefly bumped to 200 mg twice a day with improvement in rate. The patient was seen by Dr. Murphy during his hospitalization at [facility] in September but has not had follow-up cardiac care since that time. Follow up with Dr. Murphy was scheduled for April 14 at 9: 30 AM for reassessment of cardiac needs and to readdress anticoagulation is appropriate. On 04/01 the patient reported that he was feeling well. He was on room air and continues to have some cough productive of clear secretions. He reports having had cough chronically for months. He denied dyspnea or nausea. Respirations were nonlabored and breath sounds somewhat diminished throughout but without focal findings. Cardiac rhythm is irregularly irregular with systolic murmur present. Heart rate has been well controlled for the preceding 24 hours. Patient is felt stable for return to [facility] at this time. He is requested the Helms catheter remain in and suggested that this is chronic. Tube feedings will continue per home regimen. Levaquin will continue for 2 additional days to complete 1 week therapy. He is asked to have electrolytes reassessed in one week and follow-up with Dr. Guillen in that time interval. Cardiology follow-up has been scheduled as noted above. >30 minutes spent on patient care and discharge care coordination today on the date of discharge. -- Discharge Plan - Med Rec/Dispo Referrals/Follow Up: Drake Murphy MD [Physician] - (appt 04/14 at 9:30 am at [facility]) Harry Guillen MD [Family Provider] - 1 Week ([phone]) [facility] Instructions: Dyspnea (GEN) Prescriptions: New Levofloxacin [Levaquin] 750 mg PO ACB #2 Albuterol/Ipratropium [Duoneb] 3 ml IH RTBID ampul Bumetanide Tab [Bumex] 1 mg PO DAILY Continue Amiodarone HCl 200 mg GT DAILY #0 Thiamine HCl 100 mg GT DAILY #0 Pyridoxine HCl (Vitamin B6) [Pyridoxine HCl] 100 mg GT DAILY #0 Folic Acid 1 mg GT DAILY #0 Ferrous Sulfate 220 mg GT DAILY #0 diphenhydrAMINE HCl [Benadryl] 25 mg GT HS PRN #30 cap PRN Reason: INSOMNIA Insulin Glargine [Lantus] 10 unit SQ HS Omeprazole [Prilosec] 20 mg GT DAILY Levothyroxine Tab [Synthroid] 150 mcg GT DAILY Lactobacillus Rhamnosus GG [Culturelle] 1 each GT DAILY Cyanocobalamin (B-12) [Vitamin B-12] 1,000 mcg IM DAILY Mirtazapine 7.5 mg GT HS Ipratropium/Albuterol Sulfate [Iprat-Albut 0.5-3(2.5) mg/3 ml] 1 vial AEROSOL QID PRN #0 PRN Reason: SHORTNESS OF AIR Nut.tx.gluc.intoler,Lac-Fr,Soy [Glytrol] 1,000 ml PO DAILY Cholecalciferol (Vitamin D3) [Vitamin D3] 2,000 unit GT DAILY - Disposition 03 To [facility] Not [facility] ([facility])
--- NOTE | 2017-04-01 11:42 | Discharge Summary ---
Discharge Plan - Med Rec/Dispo Referrals/Follow Up: Drake Murphy MD [Physician] - (appt 04/14 at 9:30 am at [facility]) Harry Guillen MD [Family Provider] - 1 Week [facility] Instructions: Dyspnea (GEN) Prescriptions: New Levofloxacin [Levaquin] 750 mg PO ACB #2 Albuterol/Ipratropium [Duoneb] 3 ml IH RTBID ampul Bumetanide Tab [Bumex] 1 mg PO DAILY Continue Amiodarone HCl 200 mg GT DAILY #0 Thiamine HCl 100 mg GT DAILY #0 Pyridoxine HCl (Vitamin B6) [Pyridoxine HCl] 100 mg GT DAILY #0 Folic Acid 1 mg GT DAILY #0 Ferrous Sulfate 220 mg GT DAILY #0 diphenhydrAMINE HCl [Benadryl] 25 mg GT HS PRN #30 cap PRN Reason: INSOMNIA Insulin Glargine [Lantus] 10 unit SQ HS Omeprazole [Prilosec] 20 mg GT DAILY Levothyroxine Tab [Synthroid] 150 mcg GT DAILY Lactobacillus Rhamnosus GG [Culturelle] 1 each GT DAILY Cyanocobalamin (B-12) [Vitamin B-12] 1,000 mcg IM DAILY Mirtazapine 7.5 mg GT HS Ipratropium/Albuterol Sulfate [Iprat-Albut 0.5-3(2.5) mg/3 ml] 1 vial AEROSOL QID PRN #0 PRN Reason: SHORTNESS OF AIR Nut.tx.gluc.intoler,Lac-Fr,Soy [Glytrol] 1,000 ml PO DAILY Cholecalciferol (Vitamin D3) [Vitamin D3] 2,000 unit GT DAILY - Disposition 03 To [facility] ([facility])
--- NOTE | 2017-04-01 12:16 | Extended Care Facility Orders ---
Admission Orders Allergies/Adverse Reactions: Allergies amoxicillin Allergy (Unknown, Verified 03/29/17 05:45) vancomycin Allergy (Unknown, Verified 03/29/17 05:45) Admitting Diagnosis: Dyspnea Admitting Physician: Don Gonzales MD Attending Physician: Don Gonzales MD Code Status: Full code Anticiapted Length of Stay: 30 days or less Rehab Potential: good Rehab Prognosis: good Diet: tube feedings as per prior orders-in hospital using Glytrol 1.0 at 85 ml/hr continuously for 20 hrs daily Wound/Incision Care: not applicable May use Facility Protocol or Standing Orders: Yes May have flu vaccine: Yes Evaluations/Treatment: PT, OT [facility] Certification: I certify that SNF services are required to be given on an Inpatient basis because of the patients need for long-term care on a continuing basis for the condition(s) for which he/she received inpatient hospital services prior to his/her transfer to the SNF. SNF inpatient care is necessary for the following reasons Indication for [facility]: Diabetic Assessment, Teach CHF, Other (monitor respiratory status, strenghtening and conditioning, ) - Additional Information In Event of Arrest: Start CPR,call 911,send patient to the ER Resident is Aware of Diagnosis: Yes Referrals: Harry Guillen MD [Family Provider] - 1 Week Drake Murphy MD [Physician] - (appt 04/14 at 9:30 am at [facility]) Additional Orders: BMP/Mg in one week-dx acute/chronic diastolic CHF
[2017-04-01] MEDS: IPRATROPIUM/ALBUTEROL 2.5mg-0.5mg/3ml NEB IH SCH (13:25)
--- NOTE | 2017-04-02 14:33 | Right on Track Program ---
Right on Track Program Date of Discharge: 04/01/17 Home Medications: Home Medications Medication Instructions Recorded Confirmed Amiodarone HCl 200 mg GT DAILY #0 12/09/16 03/28/17 Ferrous Sulfate 220 mg GT DAILY #0 12/09/16 03/28/17 Folic Acid 1 mg GT DAILY #0 12/09/16 03/28/17 Ipratropium/Albuterol Sulfate 1 vial AEROSOL QID PRN #0 12/09/16 03/28/17 [Iprat-Albut 0.5-3(2.5) mg/3 ml] Pyridoxine HCl (Vitamin B6) 100 mg GT DAILY #0 12/09/16 03/28/17 [Pyridoxine HCl] Thiamine HCl 100 mg GT DAILY #0 12/09/16 03/28/17 Cholecalciferol (Vitamin D3) 2,000 unit GT DAILY 03/28/17 03/28/17 [Vitamin D3] Insulin Glargine [Lantus] 10 unit SQ HS 03/28/17 03/28/17 Lactobacillus Rhamnosus GG 1 each GT DAILY 03/28/17 03/28/17 [Culturelle] Levothyroxine Tab [Synthroid] 150 mcg GT DAILY 03/28/17 03/28/17 Mirtazapine 7.5 mg GT HS 03/28/17 03/28/17 Nut.tx.gluc.intoler,Lac-Fr,Soy 1,000 ml PO DAILY 03/28/17 03/28/17 [Glytrol] Omeprazole [Prilosec] 20 mg GT DAILY 03/28/17 03/28/17 Previous Rx's Medication Instructions Recorded diphenhydrAMINE HCl [Benadryl] 25 mg GT HS PRN #30 cap 12/16/16 Albuterol/Ipratropium [Duoneb] 3 ml IH RTBID ampul 04/01/17 Bumetanide Tab [Bumex] 1 mg PO DAILY 04/01/17 Levofloxacin [Levaquin] 750 mg PO ACB #2 04/01/17 - Right on Track Program Phone call follow up Date: 04/15/17 Right on Track Program: 24 Hour Follow-Up Discharge Summary Received: Yes Care Plan Received: Yes Follow Up: Follow Up Appointment Scheduled Community Paramedicine Fall Intervention: No Referral: Case Management Comments: I called [facility] on 6/8/17, the day after discharge. I spoke to one of the aids caring for Ronaldo, and she stated he was doing well. She took my phone number for the nurse to call me later in the day, but I never received a call. I called back on 04/03/17, and very briefly spoke with Whit, the nurse taking care of Ronaldo. She quickly confirmed that his breathing is doing well, and that he has an appt coming up with PCP. However, she was very busy and asked if she could call me back. I gave her my number but I did not hear back from her. Will continue to follow. I called back on 04/08/17 and was transferred twice but no one answered the phone. Recommendations For Follow-up: 1. F/U with PCP as planned 2. Continue ROTP [id number] visit Date: 04/15/17 Right on Track Program: 7-14 Day [id number] Discharge Summary Received: No Care Plan Received: Yes Follow Up: Follow Up Appointment Scheduled (already saw Dr. Guillen) Education: Diagnosis Education Reviewed, Education Provided To Caregiver Community Paramedicine Fall Intervention: No Referral: Case Management Comments: I spoke with Sofia, the nurse taking care of Ronaldo. She reports that he has been doing fairly well - a Yankaur suction device was set up in his room a couple of days ago and he's been removing copious secretions from his oral cavity. His breathing has been stable on oxygen. His skin is intact to his heels and buttocks - no sores and they are paying attention to good skincare given his primarily nonambulatory state. We reviewed medications - she contacted Dr. Guillen to clarify the order for Vitamin B12 - they were ordered as daily injections from the hospital but most recent B12 level was in the normal range (in Oct, 2016), so Dr. Guillen discontinued daily injections and ordered monthly. He completed his antibiotics. We also discovered that they didn't have the most recent discharge summary, so this will be faxed to them. After meeting with Sofia, I visited with Ronaldo. He was in bed, but waking up for the day. His mind was sharp and he was A&O x3. He feels that overall, he's doing fairly well. He told me that he's using his suction frequently - and I encouraged this as it may prevent aspiration and another hospitalization, which he understood. He denied any shortness of breath. He denied any sores or skin problems. I asked him if he misses the violin, and he replied "not really" and added that he dreams of playing the violin and walking, then wakes up "to reality". Nonetheless, he rated his quality of life as "good" but recognized that he's "getting old" and it is somewhat distressing that he can no longer eat or walk. He spends his day reading and watching old movies on TV. He enjoys visits from friends at . His niece, who lives in [place], will be coming to see him today. While he denied overt depression, he may benefit from continued follow up. Discussed With Patient and Caregiver: Yes Recommendations For Follow-up: 1. Monitor for signs of depression as he recovers from acute hospitalization [facility]. [facility]
== END 2017-04-01 15:45 | DRG 871 ==
LOC: ED 18:03 → CCU 21:06 → MED 03-31 12:02
PROVIDERS: ADMIT Hospitalist; ATTEND Internal Medicine

== ENCOUNTER 2017-11-03 12:10 | Inpatient (IN) ==
--- NOTE | 2017-11-03 12:54 | Emergency Department Report ---
General Adult HPI - General Chief complaint: Shortness of Breath/Dyspnea <FebruaryLavell 11/03/17 14:06> Stated complaint: unknown <FebruaryLavell 11/03/17 14:06> Time Seen by Provider: 11/03/17 12:40 <[facility] 14[facility]> Source: patient, RN notes reviewed <Gita Metz 11/03/17 12:57> Mode of arrival: wheelchair <Gita Metz 11/03/17 12:57> Limitations: other (GAMBELL) <Gita Metz 11/03/17 12:57> - History of Present Illness HPI narrative: PT presents from [place] unsure of why he is here. DC reports some concerns for aspiration pneumonia 2/2 lung sounds and low grade temp. <Gita Metz 11/03/17 12:57> Onset (ago): unknown <Gita Metz 11/03/17 12:57> Treatments prior to arrival: none <Gita Metz 11/03/17 12:57> - Related Data Home Medications Medication Instructions Recorded Confirmed Ferrous Sulfate 220 mg GT DAILY #0 12/09/16 11/03/17 Pyridoxine HCl (Vitamin B6) 100 mg GT DAILY #0 12/09/16 11/03/17 [Pyridoxine HCl] Thiamine HCl 100 mg GT DAILY #0 12/09/16 11/03/17 Cholecalciferol (Vitamin D3) 2,000 unit GT DAILY 03/28/17 11/03/17 [Vitamin D3] Insulin Glargine [Lantus] 10 unit SQ HS 03/28/17 11/03/17 Lactobacillus Rhamnosus GG 1 each GT DAILY 03/28/17 11/03/17 [Culturelle] Amiodarone [Pacerone] 100 mg GT DAILY 11/03/17 11/03/17 Bumetanide Tab [Bumex Tab] 1 mg GT DAILY 11/03/17 11/03/17 Dorzolamide/Timolol Eye Drops 1 drop RIGHT EYE BID 11/03/17 11/03/17 [Cosopt Ocumeter Plus] Escitalopram Oxalate [Lexapro] 5 mg GT DAILY 11/03/17 11/03/17 Famotidine [Pepcid] 20 mg GT BID 11/03/17 11/03/17 Fluticasone Nasal [employer] [Flonase] 2 spray EA NOSTRIL PRN PRN 11/03/17 11/03/17 Folic Acid [Folate] 1 mg GT DAILY 11/03/17 11/03/17 Latanoprost [Latanoprost] 1 drop EACH EYE HS 11/03/17 11/03/17 Levothyroxine Tab [Synthroid] 200 mcg GT DAILY 11/03/17 11/03/17 Loperamide [Imodium] 4 mg PO QID PRN 11/03/17 11/03/17 Previous Rx's Medication Instructions Recorded diphenhydrAMINE HCl [Benadryl] 25 mg GT HS PRN #30 cap 12/16/16 Albuterol/Ipratropium [Duoneb] 3 ml IH RTBID ampul 04/01/17 <[facility] 11/03/17 14:06> Allergies Allergy/AdvReac Type Severity Reaction Status Date / Time amoxicillin Allergy Unknown Verified 11/03/17 12:19 vancomycin Allergy Unknown Verified 11/03/17 12:19 <FebruaryLavell 11/03/17 14:06> Review of Systems Limitations: ROS unobtainable due to patient's medical condition (pt having difficulty answering questions at this time) <Gita Metz 11/03/17 12 :57> [facility] Patient Stated Medical History Dysphagia Yes: HAS G TUBE Congestive Heart Failure Yes Heart Murmur Yes Hypertension Yes Hypotension Yes Sleep Apnea Yes Other Respiratory Yes: HYPOXIA- ON 3 L/NC CONTINUOUSLY AT HOME Diabetes Mellitus Type 2 Yes Gastroesophageal Reflux Yes Disease Hx Renal Disease Yes Anemia Yes Clostridium Difficile Yes <FebruaryLavell [facility] 11/03/17 14:06> Medical History Updates: Essential HTN. DM2. Hypothyroidism. Chronic hypoxic respiratory failure <Gita Metz 11/03/17 12:57> - Social History Smoking status: Unknown if ever smoked <Gita Metz 11/03/17 12:57> Does patient use chewing tobacco?: No <Gita Metz 11/03/17 12:57> Current residence: [place] <Gita Metz 11/03/17 12:57> Physical Exam - Limitations Limitations: no limitations <LashayGita Mervat Pernell 11/03/17 12:57> - General General appearance: alert, in no apparent distress <Gita Metz 11/03 12:57> - Normal Exams: Head:: Normocephalic without trauma <Gita Metz 11/03/17 12:57> Eyes:: Pupils are PERRLA w/ EOMI <Gita Metz 11/03/17 12:57> Neck:: Full range of motion, without adenopathy <Gita Metz Pernell 12:57> Cardiovascular:: Regular rate and rhythm, without murmur or gallop, Pulses 2+ all extremities <Gita Metz 11/03/17 12:57> Abdomen:: Bowel sounds positive, soft, non-tender, non-distended <Gita Metz 11/03/17 12:57> Musculoskeletal:: No tenderness, or deformity noted, good range of motion, all extremities (per pt baseline) <LashayGita Mervat Gimenez 11/03/17 12:57> Neurological:: Patient is alert, motor/sensory/cerebellar, exams w/o gross deficits, to observation <Gita Metz 11/03/17 12:57> Psychiatric:: Patient exhibits, appropriate attention, emotion and affect < Gita Metz Pernell 11/03/17 12:57> - Expanded Respiratory Exam Location: Right: rhonchi <Gita Metz 11/03/17 14:04> Course Vital Signs Temperature 99 F 11/03/17 12:24 Pulse Rate 74 11/03/17 12:24 Respiratory Rate 24 11/03/17 12:24 Blood Pressure 163/74 H 11/03/17 12:24 Pulse Oximetry 96 11/03/17 12:24 Temperature 99 F 11/03/17 12:24 Pulse Rate 74 11/03/17 12:24 Respiratory Rate 24 11/03/17 12:24 Blood Pressure 163/74 H 11/03/17 12:24 Pulse Oximetry 96 11/03/17 12:24 <Lavell Raymundo M - 11/03/17 14:06> Medical Decision Making - MDM Narrative Medical decision making narrative: EKG, X ray, and lab reviewed and consistent with assessment and diagnosis of pneumonia. Dr Wolfe notified and pt to be an inpatient admission. Blood cultures obtained and antibiotics initiated. Admission discussed with pt, questions answered. <Belia Metzan R - 11/03/17 14:04> - Differential Diagnosis pneumonia, UTI, URI, COPD <OdalysGita awan R - 11/03/17 12:57> - Lab Data Lab results reviewed: Yes: I reviewed the patient's lab results. <OdalysphyliciaBelia gilesan R - 11/03/17 14:04> Result diagrams: 11/03/17 13:23 11/03/17 13:23 <FebruaryLavell M - 11/03/17 14:06> Lab Results 11/03/17 11/03/17 11/03/17 Range/Units 13:23 13:23 13:23 WBC 11.7 H (4.5-11.0) T/MM3 RBC 4.00 L (4.50-5.90) M/MM3 Hgb 13.2 L (13.5-17.5) GM/DL Hct 40.6 L (41-53) % MCV 101.5 H (80-100) UM3 MCH 33.0 (26-34) UUG MCHC 32.5 (31-37) GM/DL RDW Std Deviation 46.1 (36.9-50.2) FL Plt Count 192 (130-400) T/MM3 MPV 10.5 (9.4-12.4) UM3 Immature Gran % (Auto) 0.2 (0.0-0.5) % Neut % (Auto) 81.2 H (33-66) % Lymph % (Auto) 11.1 L (23-45) % [place] % (Auto) 6.6 (0-9.0) % Eos % (Auto) 0.8 (0-4) % Baso % (Auto) 0.1 (0-2) % Neut # (Auto) 9.5 H (1.8-7.7) T/MM3 Lymph # (Auto) 1.3 (1-4.8) T/MM3 [place] # (Auto) 0.8 (0-0.8) T/MM3 Eos # (Auto) 0.1 (0-0.5) T/MM3 Baso # (Auto) 0.0 (0-0.2) T/MM3 Abs Immat Gran (auto) 0.02 (0.00-0.03) T/MM3 Turbidity < 20 (0-20) Sodium 139 (134-144) MEQ/L Potassium 4.6 (3.6-5) MEQ/L Chloride 102 (98-107) MEQ/L Carbon Dioxide 28 (22-30) MEQ/L Anion Gap 9 (5-15) MEQ/L BUN 55.0 H* (9-20) MG/DL Creatinine 1.0 (0.8-1.5) MG/DL GFR Calculation 70 BUN/Creatinine Ratio 55 H (6-26) RATIO Glucose 129 H (75-110) MG/DL Calculated Osmolality 285 H (261-280) MOSM/KG Calcium 9.7 (8.4-10.2) MG/DL Total Bilirubin 0.70 (0.20-1.30) MG/DL Icterus Index < 2 (0-7) AST 70 H (17-59) U/L ALT 124 H (21-72) U/L Alkaline Phosphatase 162 H (38-126) U/L Total Protein 8.4 H (6.3-8.2) G/DL Albumin 4.2 (3.5-5.0) G/DL Globulin 4.2 H (2.4-3.6) G/DL Albumin/Globulin Ratio 1.0 L (1.1-2.2) RATIO Specimen Hemolysis 69 H (0-25) Ur Collection Type Urine, clean catch Urine Color Yellow (YELLOW) Urine Clarity Clear Urine pH 6.0 (5.0-8.0) Ur Specific [place] 1.010 L (1.015-1.025) Urine Protein Negative (NEGATIVE) Urine Glucose (UA) Negative (NEGATIVE) Urine Ketones Negative (NEGATIVE) Urine Occult Blood 2+ A (NEGATIVE) Urine Nitrate Negative (NEGATIVE) Urine Bilirubin Negative (NEGATIVE) Urine Urobilinogen 0.2 (NORMAL) EU/DL Ur Leukocyte Esterase Negative (NEGATIVE) Urine RBC 1-3 (0-3) /HPF Urine WBC None seen (0-5) /HPF Urine Bacteria None seen (NEGATIVE) Ur Culture Indicated? Cult not indicated <February,Lavell M - 11/03/17 14:06> Lab Results 11/03/17 11/03/17 11/03/17 Range/Units 13:23 13:23 13:23 WBC 11.7 H (4.5-11.0) T/MM3 RBC 4.00 L (4.50-5.90) M/MM3 Hgb 13.2 L (13.5-17.5) GM/DL Hct 40.6 L (41-53) % MCV 101.5 H (80-100) UM3 MCH 33.0 (26-34) UUG MCHC 32.5 (31-37) GM/DL RDW Std Deviation 46.1 (36.9-50.2) FL Plt Count 192 (130-400) T/MM3 MPV 10.5 (9.4-12.4) UM3 Immature Gran % (Auto) 0.2 (0.0-0.5) % Neut % (Auto) 81.2 H (33-66) % Lymph % (Auto) 11.1 L (23-45) % [place] % (Auto) 6.6 (0-9.0) % Eos % (Auto) 0.8 (0-4) % Baso % (Auto) 0.1 (0-2) % Neut # (Auto) 9.5 H (1.8-7.7) T/MM3 Lymph # (Auto) 1.3 (1-4.8) T/MM3 [place] # (Auto) 0.8 (0-0.8) T/MM3 Eos # (Auto) 0.1 (0-0.5) T/MM3 Baso # (Auto) 0.0 (0-0.2) T/MM3 Abs Immat Gran (auto) 0.02 (0.00-0.03) T/MM3 Turbidity < 20 (0-20) Sodium 139 (134-144) MEQ/L Potassium 4.6 (3.6-5) MEQ/L Chloride 102 (98-107) MEQ/L Carbon Dioxide 28 (22-30) MEQ/L Anion Gap 9 (5-15) MEQ/L BUN 55.0 H* (9-20) MG/DL Creatinine 1.0 (0.8-1.5) MG/DL GFR Calculation 70 BUN/Creatinine Ratio 55 H (6-26) RATIO Glucose 129 H (75-110) MG/DL Calculated Osmolality 285 H (261-280) MOSM/KG Calcium 9.7 (8.4-10.2) MG/DL Total Bilirubin 0.70 (0.20-1.30) MG/DL Icterus Index < 2 (0-7) AST 70 H (17-59) U/L ALT 124 H (21-72) U/L Alkaline Phosphatase 162 H (38-126) U/L Total Protein 8.4 H (6.3-8.2) G/DL Albumin 4.2 (3.5-5.0) G/DL Globulin 4.2 H (2.4-3.6) G/DL Albumin/Globulin Ratio 1.0 L (1.1-2.2) RATIO Specimen Hemolysis 69 H (0-25) Ur Collection Type Urine, clean catch Urine Color Yellow (YELLOW) Urine Clarity Clear Urine pH 6.0 (5.0-8.0) Ur Specific [place] 1.010 L (1.015-1.025) Urine Protein Negative (NEGATIVE) Urine Glucose (UA) Negative (NEGATIVE) Urine Ketones Negative (NEGATIVE) Urine Occult Blood 2+ A (NEGATIVE) Urine Nitrate Negative (NEGATIVE) Urine Bilirubin Negative (NEGATIVE) Urine Urobilinogen 0.2 (NORMAL) EU/DL Ur Leukocyte Esterase Negative (NEGATIVE) Urine RBC 1-3 (0-3) /HPF Urine WBC None seen (0-5) /HPF Urine Bacteria None seen (NEGATIVE) Ur Culture Indicated? Cult not indicated <Gita Metz 11/03/17 13:53> - EKG Data EKG #1 EKG attestation: Yes: I reviewed and interpreted this EKG. <07/13 14:06> EKG shows normal: sinus rhythm, axis, ST-T waves <eb 11/03/17 14:06 > Rate: normal <eb 11/03/17 14:06> [place]/QRS: RBBB <eb 11/03/17 14:06> Heart block present: 1st Degree <11/03/17 14:06> Disposition Clinical Impression: HCAP (healthcare-associated pneumonia) <11/03/17 14:06> Disposition: 02 To [facility] [place] <11/03/17 14:06> Condition: Stable <11/03/17 14:06> Instructions: <11/03/17 14:06> Prescriptions: No Action Thiamine HCl 100 mg GT DAILY #0 Pyridoxine HCl (Vitamin B6) [Pyridoxine HCl] 100 mg GT DAILY #0 Ferrous Sulfate 220 mg GT DAILY #0 diphenhydrAMINE HCl [Benadryl] 25 mg GT HS PRN #30 cap PRN Reason: INSOMNIA Insulin Glargine [Lantus] 10 unit SQ HS Lactobacillus Rhamnosus GG [Culturelle] 1 each GT DAILY Albuterol/Ipratropium [Duoneb] 3 ml IH RTBID ampul Dorzolamide/Timolol Eye Drops [Cosopt Ocumeter Plus] 1 drop RIGHT EYE BID Amiodarone [Pacerone] 100 mg GT DAILY Famotidine [Pepcid] 20 mg GT BID Fluticasone Nasal [employer] [Flonase] 2 spray EA NOSTRIL PRN PRN PRN Reason: Dry Nasal Passages Latanoprost [Latanoprost] 1 drop EACH EYE HS Loperamide [Imodium] 4 mg PO QID PRN PRN Reason: Loose Stools Cholecalciferol (Vitamin D3) [Vitamin D3] 2,000 unit GT DAILY Folic Acid [Folate] 1 mg GT DAILY Bumetanide Tab [Bumex Tab] 1 mg GT DAILY Escitalopram Oxalate [Lexapro] 5 mg GT DAILY Levothyroxine Tab [Synthroid] 200 mcg GT DAILY <11/03/17 14: 06> Referrals: Harry Gulilen MD [Family Provider] - <February,Lavell 11/03/17 14 :06> Forms: <11/03/17 14:06> Time of Disposition: 14:04 <Gita Metz 11/03/17 14:04> - Seen By: midlevel <Gita Metz 11/03/17 14:04>
--- OUTSIDE RECORDS SUMMARY | 2017-11-03 13:00 | External Medical Summary | Referral Summary ---
:1925 Author Organization [facility] Address [address] [place] [address] [place] [id number] Care Team Providers Name Role Phone Harry Guillen Primary Care Physician Encounter VC Date(s): 03/06/15 - 03/06/15 [facility] [place] [phone] Discharge Disposition: 01-Home or Self Care Attending Physician: Harry Guillen MD Admitting Physician: Harry Guillen MD Vital Signs Most recent to oldest [Reference Range]: 1 Temperature Tympanic [36.6-38.1 degC] 37.0 degC (03/06/15 10:44 AM) Peripheral Pulse Rate [60-100 bpm] 64 bpm (03/06/15 10:44 AM) Blood Pressure [90-140/60-90 mmHg] 194/76 mmHg *HI* (03/06/15 10:44 AM) Problem List Condition Effective Dates Status Health Status Informant alcoholic blackout(Confirmed) Resolved Anemia(Confirmed) Resolved At high risk for Active pneumonia(Confirmed) Chronic cough(Confirmed) Active CKD (chronic kidney disease) stage Active 3, GFR 30-59 ml/min(Confirmed) Diabetes(Confirmed) Resolved Controlled diabetes mellitus type 2 Active with complications(Confirmed) Diabetic peripheral Active neuropathy(Confirmed) Foot callus(Confirmed) Active hx of hematuria(Confirmed) Resolved Hyperlipidemia(Confirmed) Resolved Hypertension(Confirmed) Resolved Lymphedema(Confirmed) Active Osteoarthritis(Confirmed) Resolved Pleural effusion on right(Confirmed) Active Prostate cancer(Confirmed)1 Resolved Prostate specific antigen(Confirmed) 06/18/10 Resolved Prostate specific antigen(Confirmed) 09/29/06 Resolved Pure hypercholesterolemia(Confirmed) Active Venous stasis dermatitis(Confirmed) Active Venous stasis dermatitis(Confirmed) Active Tobacco user(Confirmed) Active patient Diabetic foot ulcer associated with Active type 2 diabetes mellitus(Confirmed) Controlled type 2 diabetes mellitus Active without complication(Confirmed) Diabetes type 2, Active uncontrolled(Confirmed) Weight loss(Confirmed) Active 7[address]26? Allergies, Adverse Reactions, Alerts Substance Reaction Severity Status amoxicillin acute interstitial nephritis Active Bee Stings Active vancomycin rash, itching Active Medications Aspirin Low Dose 81 mg, Oral, Daily, 0 Refill(s) Start Date: 04/19/14 Status: Orderedfamotidine 20 mg oral tablet 20 mg 1 tabs, Oral, BID, as needed for itching, # 60 tabs, 5 Refill(s), Pharmacy : [facility] #[id number], 1 tabs Oral BID,PRN:as needed for itching Start Date: 05/01/15 Status: Orderedferrous sulfate 325 mg, Oral, BID, 0 Refill(s) Start Date: 04/19/14 Status: Orderedfolic acid 0.8 mg oral tablet 1 tabs, Oral, Daily, 0 Refill(s) Start Date: 04/19/14 Status: OrderedJanuvia 50 mg oral tablet See Instructions, TAKE ONE TABLET BY MOUTH DAILY, # 30 tabs, 2 Refill(s), eRx: [facility] #[id number], TAKE ONE TABLET BY MOUTH DAILY Start Date: 08/16/15 Status: OrderedLasix 40 mg oral tablet 1 tabs, Oral, Daily, # 90 tabs, 3 Refill(s), Pharmacy: [facility] #[id number] , 1 tabs Oral Daily,x90 days Start Date: 03/06/15 Stop Date: 02/29/16 Status: Orderedlisinopril 5 mg oral tablet 1 tabs, Oral, Daily, # 90 tabs, 3 Refill(s), Pharmacy: [facility] #[id number] , 1 tabs Oral Daily Start Date: 03/06/15 Status: Orderedsimvastatin 20 mg oral tablet 1 tabs, Oral, Bedtime (once a day), # 90 tabs, 3 Refill(s), Pharmacy: [facility] #[id number], 1 tabs Oral Bedtime (once a day),x90 days Start Date: 03/06/15 Stop Date: 02/29/16 Status: Orderedtimolol 0.25% ophthalmic solution 1 drops, Eye-Both, BID, prescribed elsewhere, 0 Refill(s) Start Date: 04/19/14 Status: OrderedVitamin B1 100 mg, Oral, Daily, 0 Refill(s) Start Date: 04/19/14 Status: OrderedVitamin B12 1,000 mcg, Oral, Daily, 0 Refill(s) Start Date: 04/19/14 Status: OrderedVitamin B6 100 mg, Oral, Daily, 0 Refill(s) Start Date: 04/19/14 Status: OrderedVitamin C 1,000 mg, Oral, Daily, 0 Refill(s) Start Date: 04/19/14 Status: OrderedVitamin D3 1,000 Intl_Units, Oral, Daily, 0 Refill(s) Start Date: 04/19/14 Status: OrderedXalatan 0.005% ophthalmic solution 1 drops, Eye-Both, Bedtime (once a day), prescribed elsewhere, # 2.5 mL, 0 Refill(s) Start Date: 04/19/14 Status: OrderedZantac 300 oral tablet 1 tabs, Oral, Bedtime (once a day), # 90 tabs, 3 Refill(s), Pharmacy: [facility] #[id number], 1 tabs Oral Bedtime (once a day),x90 days Start Date: 03/06/15 Stop Date: 02/29/16 Status: Ordered Results No data available for this section Immunizations Vaccine Date Refusal Reason influenza virus vaccine, inactivated1 08/08/14 influenza virus vaccine, live 07/27/13 influenza virus vaccine, live 08/12/12 pneumococcal 13-valent conjugate vaccine 12/08/14 pneumococcal 23-polyvalent vaccine 05/06/06 pneumococcal 23-polyvalent vaccine 03/27/99 tetanus-diphth toxoids (Td) adult/adol 04/13/07 tetanus-diphth toxoids (Td) adult/adol 03/31/97 zoster vaccine live 07/24/09 1Result Comment: [08/08/2014] See scanned document Procedures Procedure Date Related Diagnosis Body Site Paring or cutting of benign hyperkeratotic lesion 03/06/15 (eg, corn or callus); single lesion Colonoscopy 2006 Cystourethroscopy 05/30/02 Colonoscopy 2002 Cystoscopy 2001 Hospital admission for rib fractures and syncope 2001 Detachment of retinal-2 surgeries 2000 Esophagogastroduodenoscopy [EGD] with closed 1997 biopsy Colonoscopy 1996 Colonoscopy 1995 Hospital admission fro kidney stones 1991 Inguinal herniorrhaphy 1989 Radical prostatectomy 1988 Appendectomy Cataract extraction Hernia repair Social History Social History Type Response Smoking Status Former smoker; Type: Cigarettes Assessment and Plan Extracted from: Title: Ambulatory Patient Education Author: Harry Guillen MD Date: 03/06/15 Family Medicine Corns and Calluses Corns are small areas of thickened skin that usually occur on the top, sides, or tip of a toe. They contain a cone-shaped core with a point that can press on a nerve below. This causes pain. Calluses ar e areas of thickened skin that usually develop on hands, fingers, palms, soles of the feet, and heels. These are areas that experience frequent friction or pressure. CAUSES Corns are usually the result of rubbing (friction ) or pressure from shoes that are too tight or do not fit properly. Calluses are caused by repeated friction and pressure on the affected areas. SYMPTOMS A hard growth on the skin. Pain or tenderness under the skin. Sometimes, redness and swelling. Increased discomfort while wearing tight-fitting shoes. DIAGNOSIS Your caregiver can usually tell what the problem is by doing a physical exam. TREATMENT Removing the cause of the friction or pressure is usually the only treatment needed. However, sometimes medicines can be used to help soften the hardened, thickened areas. These medicines include salicy lic acid plasters and 12% ammonium lactate lotion. These medicines should only be used under the direction of your caregiver. HOME CARE INSTRUCTIONS Try to remove pressure from the affected area. You may wear donut-shaped corn pads to protect your skin. You may use a pumice stone or nonmetallic nail file to gently reduce the thickness of a corn. Wear properly fitted footwear. If you have calluses on the hands, wear gloves during activities that cause friction. If you have diabetes, you should regularly examine your feet. Tell your caregiver if you notice any problems with your feet. SEEK IMMEDIATE MEDICAL CARE IF: You have increased pain, swelling, redness, or warmth in the affected area. Your corn or callus starts to drain fluid or bleeds. You are not getting better, even with treatment. Document Released: 07/18/2005 Document Revised: 01/03/2013 Document Reviewed: 06/08/2012 [facility] Patient Information 2014 [employer]. No follow up information was provided. Extracted from: Title: DM, HTN Author: Harry Guillen MD Date: 03/06/15 Impression and Plan Diagnosis CKD (chronic kidney disease) stage 3, GFR 30-59 ml/min (ICD9 585.3, Working, Medical). Controlled type 2 diabetes mellitus without complication (ICD9 250.00, Working , Medical). Diabetic foot ulcer associated with type 2 diabetes mellitus (ICD9 250.80, Working, Medical). Foot callus (ICD9 700, Working, Medical). Hyperlipidemia (ICD9 272.4, Working, Medical). Hypertension (ICD9 401.9, Working, Medical). Lymphedema (ICD9 457.1, Working, Medical). Venous stasis dermatitis (ICD9 454.1, Working, Medical). Plan: The left plantar foot callus was trimmed manually by me, with a #15 scalpel blade, which the patient tolerated well. No acute bleeding occurred. I noted a pre-existing ulcerative area of old bl eeding under the callus to be present. ROBERTO was applied to this area. Stop the Lisinopril 2.5 mg tabs. Switch to Lisinopril 5 mg daily for better BP control. See me back in 1 month for recheck of your BP and foot callus/ulcer. Continue your other meds the same. Tetanus status was noted to be current. I advised the patient to get diabetic shoes, and to never go barefoot., Get lab work drawn in ab out 2 weeks. Sign a record release for Dr. Linares's records and lab work.. Orders Orders (Selected) Outpatient Orders Ordered Office Visit Level 5 Est 16486: Paring/Cutting Hypkeratotic Lesion, Single 32297: Prescriptions Prescribed Januvia 50 mg oral tablet: 1 tabs, Oral, Daily, 30 tabs, 3 Refill(s) Lasix 40 mg oral tablet: 1 tabs, Oral, Daily, for 90 days, 90 tabs, 3 Refill(s) Zantac 300 oral tablet: 1 tabs, Oral, Bedtime (once a day), for 90 days, 90 tabs, 3 Refill(s) lisinopril 5 mg oral tablet: 1 tabs, Oral, Daily, 90 tabs, 3 Refill(s) simvastatin 20 mg oral tablet: 1 tabs, Oral, Bedtime (once a day), for 90 days , 90 tabs, 3 Refill(s). Dx/Order Association Plan: Diagnosis: CKD (chronic kidney disease) stage 3, GFR 30-59 ml/min Comment: Ordered: Office Visit Level 5 Est [id number]; 03/06/15 11:21:00 CDT, Foot callus | Diabetic foot ulcer associated with type 2 diabetes mellitus | Controlled type 2 diabetes mellitus without com plication | Hyperlipidemia | CKD (chronic kidney disease) stage 3, GFR 30-59 ml /min Diagnosis: Controlled type 2 diabetes mellitus without complication Comment: Ordered: Office Visit Level 5 Est [id number]; 03/06/15 11:21:00 CDT, Foot callus | Diabetic foot ulcer associated with type 2 diabetes mellitus | Controlled type 2 diabetes mellitus without com plication | Hyperlipidemia | CKD (chronic kidney disease) stage 3, GFR 30-59 ml /min Diagnosis: Diabetic foot ulcer associated with type 2 diabetes mellitus Comment: Ordered: Paring/Cutting Hypkeratotic Lesion, Single 98207; 11:21:00 CDT, 1, Foot callus | Diabetic foot ulcer associated with type 2 diabetes mellitus Office Visit Level 5 Est [id number]; 03/06/15 11:21:00 CDT, Foot callus | Diabetic foot ulcer associated with type 2 diabetes mellitus | Controlled type 2 diabetes mellitus witho ut complication | Hyperlipidemia | CKD (chronic kidney disease) stage 3, GFR 30 -59 ml/min Diagnosis: Foot callus Comment: Ordered: Paring/Cutting Hypkeratotic Lesion, Single 09074; 11:21:00 CDT, 1, Foot callus | Diabetic foot ulcer associated with type 2 diabetes mellitus Office Visit Level 5 Est [id number]; 03/06/15 11:21:00 CDT, Foot callus | Diabetic foot ulcer associated with type 2 diabetes mellitus | Controlled type 2 diabetes mellitus witho ut complication | Hyperlipidemia | CKD (chronic kidney disease) stage 3, GFR 30 -59 ml/min Diagnosis: Hyperlipidemia Comment: Ordered: Office Visit Level 5 Est [id number]; 03/06/15 11:21:00 CDT, Foot callus | Diabetic foot ulcer associated with type 2 diabetes mellitus | Controlled type 2 diabetes mellitus without com plication | Hyperlipidemia | CKD (chronic kidney disease) stage 3, GFR 30-59 ml /min Diagnosis: Hypertension Comment: Ordered: Office Visit Level 5 Est [id number]; 03/06/15 11:21:00 CDT, Foot callus | Diabetic foot ulcer associated with type 2 diabetes mellitus | Controlled type 2 diabetes mellitus without com plication | Hyperlipidemia | CKD (chronic kidney disease) stage 3, GFR 30-59 ml /min Diagnosis: Lymphedema Comment: Ordered: Office Visit Level 5 Est [id number]; 03/06/15 11:21:00 CDT, Foot callus | Diabetic foot ulcer associated with type 2 diabetes mellitus | Controlled type 2 diabetes mellitus without com plication | Hyperlipidemia | CKD (chronic kidney disease) stage 3, GFR 30-59 ml /min Diagnosis: Venous stasis dermatitis Comment: Ordered: Office Visit Level 5 Est [id number]; 03/06/15 11:21:00 CDT, Foot callus | Diabetic foot ulcer associated with type 2 diabetes mellitus | Controlled type 2 diabetes mellitus without com plication | Hyperlipidemia | CKD (chronic kidney disease) stage 3, GFR 30-59 ml /min Additional Orders: Comment: Ordered: Januvia 50 mg oral tablet,1 tabs, Oral, Daily, # 30 tabs , 3 Refill(s), Pharmacy: [facility] #[id number] Ordered: Lasix 40 mg oral tablet,1 tabs, Oral, Daily, # 90 tabs, 3 Refill(s), Pharmacy: [facility] #[id number], 1 tabs Oral Daily,x90 days Ordered: Zantac 300 oral tablet,1 tabs, Oral, Bedtime (once a day) , # 90 tabs, 3 Refill(s), Pharmacy: [facility] #[id number], 1 tabs Oral Bedtime (once a day),x90 days Ordered: lisinopril 5 mg oral tablet,1 tabs, Oral, Daily, # 90 tabs, 3 Refill(s), Pharmacy: [facility] #[id number], 1 tabs Oral Daily Ordered: simvastatin 20 mg oral tablet,1 tabs, Oral, Bedtime ( once a day), # 90 tabs, 3 Refill(s), Pharmacy: [facility] #[id number], 1 tabs Oral Bedtime (once a day),x90 days End of Orders ."
--- OUTSIDE RECORDS SUMMARY | 2017-11-03 13:00 | External Medical Summary | Referral Summary ---
:1925 Author Organization [facility], [place] Address [address] [place] [address] [place] [id number] Care Team Providers Name Role Phone Harry Guillen Primary Care Physician Encounter VC Date(s): 05/01/15 - 05/01/15 [facility] [address] [place] [phone] [place] Discharge Disposition: 01-Home or Self Care Attending Physician: Harry Guillen MD Admitting Physician: Harry Guillen MD Vital Signs Most recent to oldest [Reference Range]: 1 Temperature Tympanic [36.6-38.1 degC] 36.2 degC *LOW* (05/01/15 11:16 AM) Peripheral Pulse Rate [60-100 bpm] 64 bpm (05/01/15 11:16 AM) Respiratory Rate [14-20 br/min] 18 br/min (05/01/15 11:16 AM) Blood Pressure [90-140/60-90 mmHg] 134/82 mmHg (05/01/15 11:16 AM) Problem List Condition Effective Dates Status Health Status Informant alcoholic blackout(Confirmed) Resolved Anemia(Confirmed) Resolved At high risk for Active pneumonia(Confirmed) Chronic cough(Confirmed) Active CKD (chronic kidney disease) stage Active 3, GFR 30-59 ml/min(Confirmed) Diabetes(Confirmed) Resolved Controlled diabetes mellitus type 2 Active with complications(Confirmed) Diabetic peripheral Active neuropathy(Confirmed) Foot callus(Confirmed) Active hx of hematuria(Confirmed) Resolved Hypertension(Confirmed) Resolved Lymphedema(Confirmed) Active Hyperlipidemia(Confirmed) Resolved Osteoarthritis(Confirmed) Resolved Venous stasis dermatitis(Confirmed) Active Venous stasis dermatitis(Confirmed) Active Pleural effusion on right(Confirmed) Active Prostate cancer(Confirmed)1 Resolved Prostate specific antigen(Confirmed) 06/18/10 Resolved Prostate specific antigen(Confirmed) 09/29/06 Resolved Pure hypercholesterolemia(Confirmed) Active Tobacco user(Confirmed) Active patient Diabetic foot ulcer associated with Active type 2 diabetes mellitus(Confirmed) Controlled type 2 diabetes mellitus Active without complication(Confirmed) Diabetes type 2, Active uncontrolled(Confirmed) Weight loss(Confirmed) Active 74138? Allergies, Adverse Reactions, Alerts Substance Reaction Severity Status amoxicillin acute interstitial nephritis Active Bee Stings Active vancomycin rash, itching Active Medications Aspirin Low Dose 81 mg, Oral, Daily, 0 Refill(s) Start Date: 04/19/14 Status: Orderedfamotidine 20 mg oral tablet 20 mg 1 tabs, Oral, BID, as needed for itching, # 60 tabs, 3 Refill(s), Pharmacy : [facility] #[id number], 1 tabs Oral BID,PRN:as needed for itching Start Date: 10/04/15 Status: Orderedferrous sulfate 325 mg, Oral, BID, 0 Refill(s) Start Date: 04/19/14 Status: Orderedfolic acid 0.8 mg oral tablet 1 tabs, Oral, Daily, 0 Refill(s) Start Date: 04/19/14 Status: OrderedJanuvia 50 mg oral tablet 50 mg 1 tabs, Oral, Daily, X 90 days, # 90 tabs, 3 Refill(s), Pharmacy: [facility] #[id number] Start Date: 10/04/15 Stop Date: 09/28/16 Status: OrderedLasix 40 mg oral tablet 40 mg 1 tabs, Oral, Daily, # 90 tabs, 3 Refill(s), Pharmacy: [facility] # [id number], 1 tabs Oral Daily Start Date: 10/04/15 Status: Orderedlisinopril 5 mg oral tablet 5 mg 1 tabs, Oral, Daily, # 90 tabs, 3 Refill(s), Pharmacy: [facility] # [id number], 1 tabs Oral Daily Start Date: 10/04/15 Status: Orderedsimvastatin 20 mg oral tablet 20 mg 1 tabs, Oral, Bedtime (once a day), # 90 tabs, 3 Refill(s), Pharmacy: [facility] #[id number], 1 tabs Oral Bedtime (once a day),x90 days Start Date: 10/04/15 Stop Date: 09/28/16 Status: Orderedtimolol 0.25% ophthalmic solution 1 drops, [...] Date: 04/19/14 Status: OrderedZantac 300 oral tablet 300 mg 1 tabs, Oral, Bedtime (once a day), # 90 tabs, 3 Refill(s), Pharmacy: [facility] #[id number], 1 tabs Oral Bedtime (once a day) Start Date: 10/04/15 Status: Ordered Results No data available for [...] Paring or cutting of benign hyperkeratotic lesion 05/01/15 (eg, corn or callus); single lesion Colonoscopy 2006 Cystourethroscopy 05/30/02 Colonoscopy 2001 Cystoscopy 2001 Hospital admission for rib fractures and syncope 2001 Detachment of retinal-2 surgeries 2000 Esophagogastroduodenoscopy [EGD] with closed 1998 biopsy Colonoscopy 1996 Colonoscopy 1994 Hospital admission [facility] kidney stones 1991 Inguinal herniorrhaphy 1989 Radical prostatectomy 1988 Appendectomy Cataract extraction Hernia repair Social History Social History Type Response Smoking Status Former smoker; Type: Cigarettes Assessment and Plan Extracted from: Title: Ambulatory Patient Education Author: Harry Guillen MD Date: 05/01/15 Physical Medicine and Rehabilitation Corns and Calluses A thickening of the skin layer (usually over bony areas, such as toe joints) is known as a corn. Two types of corns exist: hard corns and soft corns. Calluses are painless areas of skin thickening that are caused by repeated pressure or irritation. Corns tend to affect toe joints and the skin between the toes; whereas, a callus can appear on any part of the body (especially the hands, feet, or knees). SYMPTOMS Idabel: Presence of a small (1/8 to 3/8 inch [3 to 10 mm in diameter]), painful bump on the side or over the joint of a toe. Hard corns are more common on the outer portion of the little (fifth) toe at the joint. Soft corns are more common between bony bumps (prominences ), usually between the fourth and fifth toes or between the second and third toes. Callus: A rough, thickened area of skin that appears after repeated pressure or irritation. CAUSES The purpose of corns and calluses is to protect an area of skin from injury caused by repeated irritation (rubbing or squeezing). The presence of pressure causes the skin cells to grow at a faster rate than the cells of unaffected areas. This leads to an overgrowth (corn or callus ). As apposed to hard corns, soft corns tend to develop between toes, because there is more moisture. Soft corns are often the result of prolonged shoe wear, which leads to increased perspiration and moisture. RISK INCREASES WITH: Shoes that are too tight. Occupations or sports that involve repetitive pressure on the hands ( racquetball and baseball) or sudden stops on hard surfaces (track and tennis). Sports that require the athlete to wear shoes, perspire, or wear clothing or protective gear that causes the production of heat and friction. PREVENTION Properly fitted shoes and equipment. Modify activities to prevent constant pressure on specific areas of skin. If possible, wear padding over areas of skin that are exposed to repeated pressure or irritation. Keep the area between the toes dry (with powder or by removing shoes often ). Relieve shoe pressure by stretching the areas of the shoe that cause the pressure and or use ointments to soften leather shoes. PROGNOSIS Corns and calluses typically subside if the activity that causes them is eliminated. Recovery may take up to 3 weeks. Recurrence is likely even with treatment if the cause is not removed. RELATED COMPLICATIONS If one overcompensates in an attempt to avoid pain, he or she may experience pain in other areas due to the changes in body movements (mechanics ). TREATMENT The best way to treat corns and calluses is to remove the source of pressure. Idabel and callus pads may be helpful in reducing pressure on the affected skin. For soft corns, try to keep the affected area dry. If you cannot find shoes that fit properly, a shoe repair shop may be able to alter your shoes to reduce pressure. Occasionally a cushion for the bottom of the foot (metatarsal bar ) worn within t he shoe may relieve pressure on corns or calluses of the foot. For calluses, you may be able to peel or rub the thickened area with a pumice stone, sandstone , callus file, or with sandpaper to remove th e callus; wetting the affected area may make this process more effective. Do not cut the corn or callus with a razor or knife. If the corn or callus must be removed, then a medically trained person shou ld perform the procedure. After peeling away the upper layers of a corn once or twice a day, it may be recommended to apply a non-prescription 5% to 10% salicylic ointment and cover the area with a band age. It very uncommon to have the bony bumps (at toe joints) surgically removed. MEDICATION If pain medication is necessary, nonsteroidal anti-inflammatory medications, such as aspirin and ibuprofen, or other minor pain relievers, such as acetaminophen, are often recommended. Contact your caregiver immediately if any bleeding, stomach upset, or signs of an allergic reaction occur. Topical salicylic ointments (5% to 10%) may be of benefit. Prescription pain medications may be given by a caregiver. Use only as directed and only as much as you need. Soak the foot for 20 minutes, twice a day, in a gallon of warm water. This may help to soften corns and calluses. Care should be taken to thoroughly dry the foot, especially between the toes, after soaking. SEEK MEDICAL CARE IF: Symptoms get worse or do not improve in 2 weeks despite treatment. Any signs of infection develop, including redness, swelling, increased pain or tenderness, or increased warmth around the corn or callus. New, unexplained symptoms develop (drugs used in treatment may produce side effects). Document Released: 10/12/2006 Document Revised: 01/03/2013 Document Reviewed: 01/24/2010 [employer] Patient Information 2014 [employer]. No follow up information was provided. Extracted from: Title: foot callus, DM, HTN Author: Harry Guillen MD Date: 05/01/15 Impression and Plan Diagnosis Anemia (ICD9 285.29, Working, Medical). Chronic cough (ICD9 786.2, Working, Medical). CKD (chronic kidney disease) stage 3, GFR [...] stasis dermatitis (ICD9 454.1, Working, Medical). Plan: Continue your current meds and treatments. The foot callus on the left foot was trimmed with a #15 scalpel blade, which was well tolerated. The ulcer has healed. See me in 2 months and as needed. No lab today. . Orders Orders (Selected) Outpatient Orders Ordered Office Visit Level 4 Est 65461: Paring/Cutting Hypkeratotic Lesion, Single 44604: Prescriptions Prescribed famotidine 20 mg oral tablet: 20 mg=1 tabs, Oral, BID, PRN: as needed for itching, 60 tabs, 5 Refill(s). Dx/Order Association Plan: Diagnosis: Anemia Comment: Ordered: Office Visit Level 4 Est [id number]; 05/01/15 11:46:00 CDT, 25, Diabetic foot ulcer associated with type 2 diabetes mellitus | Controlled type 2 diabetes mellitus without complication | CKD (chronic kidney disease) stage 3, GFR 30-59 ml/min | Anemia | Chronic cough Diagnosis: CKD (chronic kidney disease) stage 3, GFR 30-59 ml/min Comment: Ordered: Office Visit Level 4 Est [id number]; 05/01/15 11:46:00 CDT, 25, Diabetic foot ulcer associated with type 2 diabetes mellitus | Controlled type 2 diabetes mellitus without complication | CKD (chronic kidney disease) stage 3, GFR 30-59 ml/min | Anemia | Chronic cough Diagnosis: Chronic cough Comment: Ordered: Office Visit Level 4 Est [id number]; 05/01/15 11:46:00 CDT, 25, Diabetic foot ulcer associated with type 2 diabetes mellitus | Controlled type 2 diabetes mellitus without complication | CKD (chronic kidney disease) stage 3, GFR 30-59 ml/min | Anemia | Chronic cough Diagnosis: Controlled type 2 diabetes mellitus without complication Comment: Ordered: Office Visit Level 4 Est [id number]; 05/01/15 11:46:00 CDT, 25, Diabetic foot ulcer associated with type 2 diabetes mellitus | Controlled type 2 diabetes mellitus without complication | CKD (chronic kidney disease) stage 3, GFR 30-59 ml/min | Anemia | Chronic cough Diagnosis: Diabetic foot ulcer associated with type 2 diabetes mellitus Comment: Ordered: Office Visit Level 4 Est [id number]; 05/01/15 11:46:00 CDT, 25, Diabetic foot ulcer associated with type 2 diabetes mellitus | Controlled type 2 diabetes mellitus without complication | CKD (chronic kidney disease) stage 3, GFR 30-59 ml/min | Anemia | Chronic cough Diagnosis: Foot callus Comment: Ordered: Paring/Cutting Hypkeratotic Lesion, Single [id number]; 11:47:00 CDT, 1, Foot callus Diagnosis: Hyperlipidemia Comment: Ordered: Office Visit Level 4 Est [id number]; 05/01/15 11:46:00 CDT, 25, Diabetic foot ulcer associated with type 2 diabetes mellitus | Controlled type 2 diabetes mellitus without complication | CKD (chronic kidney disease) stage 3, GFR 30-59 ml/min | Anemia | Chronic cough Diagnosis: Hypertension Comment: Ordered: Office Visit Level 4 Est [id number]; 05/01/15 11:46:00 CDT, 25, Diabetic foot ulcer associated with type 2 diabetes mellitus | Controlled type 2 diabetes mellitus without complication | CKD (chronic kidney disease) stage 3, GFR 30-59 ml/min | Anemia | Chronic cough Diagnosis: Lymphedema Comment: Ordered: Office Visit Level 4 Est [id number]; 05/01/15 11:46:00 CDT, 25, Diabetic foot ulcer associated with type 2 diabetes mellitus | Controlled type 2 diabetes mellitus without complication | CKD (chronic kidney disease) stage 3, GFR 30-59 ml/min | Anemia | Chronic cough Diagnosis: Venous stasis dermatitis Comment: Ordered: Office Visit Level 4 Est [id number]; 05/01/15 11:46:00 CDT, 25, Diabetic foot ulcer associated with type 2 diabetes mellitus | Controlled type 2 diabetes mellitus without complication | CKD (chronic kidney disease) stage 3, GFR 30-59 ml/min | Anemia | Chronic cough Additional Orders: Comment: Ordered: famotidine 20 mg oral tablet,20 mg 1 tabs, Oral, BID, as needed for itching, # 60 tabs, 5 Refill(s), Pharmacy: [facility] #[id number], 1 tabs Oral BID,PRN:as needed for itching End of Orders ."
--- OUTSIDE RECORDS SUMMARY | 2017-11-03 13:00 | External Medical Summary | Referral Summary ---
:1925 Author Organization [facility] [place] [id number] Care Team Providers Name Role Phone Harry Guillen Primary Care Physician Encounter VC Date(s): 12/11/15 - 12/11/15 [facility] [address] [place] [phone] [place] Discharge Disposition: 01-Home or Self Care Attending Physician: Harry Guillen MD Admitting Physician: Harry Guillen MD Vital Signs Most recent to oldest [Reference Range]: 1 Temperature Tympanic [36.6-38.1 degC] 36.4 degC *LOW* (12/11/15 3:50 PM) Apical Heart Rate [60-100 bpm] 75 bpm (12/11/15 3:50 PM) Blood Pressure [90-140/60-90 mmHg] 160/84 mmHg *HI* (12/11/15 3:50 PM) Problem List Condition Effective Dates Status Health [...] type 2, Active uncontrolled(Confirmed) Weight loss(Confirmed) Active 90221? Allergies, Adverse Reactions, Alerts Substance Reaction Severity Status amoxicillin acute interstitial nephritis Active Bee Stings Active vancomycin rash, itching Active Medications Aspirin Low Dose 81 mg, Oral, Daily, 0 Refill(s) Start Date: 04/19/14 Status: Orderedcontour test strips contour test strips, See Instructions, Test blood sugars twice daily Dx: E11.9 , # 1 bottles, 3 Refill(s), Pharmacy: [facility] #[id number], Test blood sugars twice daily; Dx: E11.9 Start Date: 11/13/15 Status: Orderedfamotidine 20 mg oral tablet 20 mg 1 tabs, Oral, BID, as needed for itching, # 60 tabs, 3 Refill(s), Pharmacy : [facility] #[id number], 1 tabs Oral BID,PRN:as needed for itching Start Date: 10/04/15 Status: Orderedferrous sulfate 325 mg, Oral, BID, 0 Refill(s) Start Date: 04/19/14 Status: Orderedfolic acid 0.8 mg oral tablet 1 tabs, Oral, Daily, 0 Refill(s) Start Date: 04/19/14 Status: OrderedJanuvia 50 mg oral tablet 50 mg 1 tabs, Oral, Daily, X 90 days, # 90 tabs, 11 Refill(s), Pharmacy: [facility] #[id number] Start Date: 12/11/15 Stop Date: 11/25/18 Status: OrderedLasix 40 mg oral tablet 40 mg 1 tabs, Oral, Daily, # 90 tabs, 3 Refill(s), Pharmacy: [facility] # [id number], 1 tabs Oral Daily Start Date: 10/04/15 Status: Orderedlisinopril 5 mg oral tablet 5 mg 1 tabs, Oral, Daily, # 90 tabs, 3 Refill(s), Pharmacy: [facility] # [id number], 1 tabs Oral Daily Start Date: 10/04/15 Status: Orderedsimvastatin 20 mg oral tablet 20 mg 1 tabs, Oral, Bedtime (once a day), # 90 tabs, 3 Refill(s), Pharmacy: [facility] #[id number], 1 tabs Oral Bedtime (once a day),x90 days Start Date: 12/11/15 Stop Date: 12/05/16 Status: Orderedtimolol 0.25% ophthalmic solution 1 drops, [...] mL, 0 Refill(s) Start Date: 04/19/14 Status: Ordered Results No data available for [...] Paring or cutting of benign hyperkeratotic lesion 12/11/15 (eg, corn or callus); single lesion Colonoscopy 2007 Cystourethroscopy 05/30/02 Colonoscopy 2001 Cystoscopy 2001 Hospital admission for rib fractures and syncope 2001 Detachment of retinal-2 surgeries 2000 Esophagogastroduodenoscopy [EGD] with closed 1997 biopsy Colonoscopy 1996 Colonoscopy 1994 Hospital admission fro kidney stones 1991 Inguinal herniorrhaphy 1989 Radical prostatectomy 1988 Appendectomy Cataract extraction Hernia repair Social History Social History Type Response Smoking Status Former smoker; Type: Cigarettes Assessment and Plan Extracted from: Title: Ambulatory Patient Education Author: Harry Guillen MD Date: 12/11/15 Family Medicine Diabetes and Foot Care Diabetes may cause you to have problems because of poor blood supply ( circulation) to your feet and legs. This may cause the skin on your feet to become thinner, break easier, and heal more slowly. Your skin may become dry, and the skin may peel and crack. You may also have nerve damage in your legs and feet causing decreased feeling in them. You may not notice minor injuries to your feet that could l ead to infections or more serious problems. Taking care of your feet is one of the most important things you can do for yourself. HOME CARE INSTRUCTIONS Wear shoes at all times, even in the house. Do not go barefoot. Bare feet are easily injured. Check your feet daily for blisters, cuts, and redness. If you cannot see the bottom of your feet, use a mirror or ask someone for help. Wash your feet with warm water (do not use hot water) and mild soap. Then pat your feet and the areas between your toes until they are completely dry. Do not soak your feet as this can dry your skin. Apply a moisturizing lotion or petroleum jelly (that does not contain alcohol and is unscented) to the skin on your feet and to dry, brittle toenails. Do not apply lotion between your toes. Trim your toenails straight across. Do not dig under them or around the cuticle. File the edges of your nails with an emery board or nail file. Do not cut corns or calluses or try to remove them with medicine. Wear clean socks or stockings every day. Make sure they are not too tight. Do not wear knee-high stockings since they may decrease blood flow to your legs. Wear shoes that fit properly and have enough cushioning. To break in new shoes, wear them for just a few hours a day. This prevents you from injuring your feet. Always look in your shoes before y ou put them on to be sure there are no objects inside. Do not cross your legs. This may decrease the blood flow to your feet. If you find a minor scrape, cut, or break in the skin on your feet, keep it and the skin around it clean and dry. These areas may be cleansed with mild soap and water. Do not cleanse the area with peroxide, alcohol, or iodine. When you remove an adhesive bandage, be sure not to damage the skin around it. If you have a wound, look at it several times a day to make sure it is healing. Do not use heating pads or hot water bottles. They may burn your skin. If you have lost feeling in your feet or legs, you may not know it is happening until it is too late. Make sure your health care provider performs a complete foot exam at least annually or more often if you have foot problems. Report any cuts, sores, or bruises to your health care provider immediately. SEEK MEDICAL CARE IF: You have an injury that is not healing. You have cuts or breaks in the skin. You have an ingrown nail. You notice redness on your legs or feet. You feel burning or tingling in your legs or feet. You have pain or cramps in your legs and feet. Your legs or feet are numb. Your feet always feel cold. SEEK IMMEDIATE MEDICAL CARE IF: There is increasing redness, swelling, or pain in or around a wound. There is a red line that goes up your leg. Pus is coming from a wound. You develop a fever or as directed by your health care provider. You notice a bad smell coming from an ulcer or wound. This information is not intended to replace advice given to you by your health care provider. Make sure you discuss any questions you have with your health care provider. Document Released: 10/09/2001 Document Revised: 06/14/2014 Document Reviewed: 03/21/2014 [employer] Patient Information 2015 [employer]. No follow up information was provided. Extracted from: Title: DM, HTN, foot ulcer/callus Author: Harry Guillen MD Date: 12/11/15 Impression and Plan Diagnosis Hypertension (RXA57-EI I10, Working, Medical). Hyperlipidemia (NJB82-NZ E78.2, Working, Medical). CKD (chronic kidney disease) stage 3, GFR 30-59 ml/min (UCY20-FE N18.3, Working , Medical). Controlled type 2 diabetes mellitus without complication (YNX11-QN E11.9, Working, Medical). Lymphedema (NSY11-YE I89.0, Working, Medical). Venous stasis dermatitis (BAD89-CE I87.2, Working, Medical). Plantar ulcer of left foot (HET80-IH L97.521, Working, Medical). Plan: 1) I trimmed the callus of the left foot, and its associated plantar ulcer manually with a #15 scalpel blade, which was well tolerated. 2) The legs were re-wrapped with Abebe bandages. 3) Patient advised to see DR. Prasad for orthotic and foot ulcer treatment. 4) Continue your current meds and treatments otherwise. 5) See me in 2 months and as needed.. Orders Orders (Selected) Outpatient Orders Ordered Office Visit Level 4 Est 43041: Paring/Cutting Hypkeratotic Lesion, Single 18855: Prescriptions Prescribed Januvia 50 mg oral tablet: 50 mg=1 tabs, Oral, Daily, for 90 days, 90 tabs, 11 Refill(s) simvastatin 20 mg oral tablet: 20 mg=1 tabs, Oral, Bedtime (once a day), for 90 days, 90 tabs, 3 Refill(s). Dx/Order Association Plan: Diagnosis: CKD (chronic kidney disease) stage 3, GFR 30-59 ml/min Comment: Diagnosis: Controlled type 2 diabetes mellitus without complication Comment: Ordered: Office Visit Level 4 Est 02808; 12/11/15 17:12:00 PERMANENT WAVER, Controlled type 2 diabetes mellitus without complication | Hypertension | Lymphedema | Venous stasis dermatitis Paring/Cutting Hypkeratotic Lesion, Single 18028; 12/11/15 17:11:00 PERMANENT WAVER, 1, Plantar ulcer of left foot | Controlled type 2 diabetes mellitus without complication | Lymphedema Diagnosis: Hyperlipidemia Comment: Diagnosis: Hypertension Comment: Ordered: Office Visit Level 4 Est 21518; 12/11/15 17:12:00 PERMANENT WAVER, Controlled type 2 diabetes mellitus without complication | Hypertension | Lymphedema | Venous stasis dermatitis Diagnosis: Lymphedema Comment: Ordered: Office Visit Level 4 Est 48356; 12/11/15 17:12:00 PERMANENT WAVER, Controlled type 2 diabetes mellitus without complication | Hypertension | Lymphedema | Venous stasis dermatitis Paring/Cutting Hypkeratotic Lesion, Single 18908; 12/11/15 17:11:00 PERMANENT WAVER, 1, Plantar ulcer of left foot | Controlled type 2 diabetes mellitus without complication | Lymphedema Diagnosis: Plantar ulcer of left foot Comment: Ordered: Paring/Cutting Hypkeratotic Lesion, Single 03216; 17:11:00 PERMANENT WAVER, 1, Plantar ulcer of left foot | Controlled type 2 diabetes mellitus without complication | Lymphedema Diagnosis: Venous stasis dermatitis Comment: Ordered: Office Visit Level 4 Est 95885; 12/11/15 17:12:00 PERMANENT WAVER, Controlled type 2 diabetes mellitus without complication | Hypertension | Lymphedema | Venous stasis dermatitis Additional Orders: Comment: Ordered: Januvia 50 mg oral tablet,50 mg 1 tabs, Oral, Daily, X 90 days, # 90 tabs, 11 Refill(s), Pharmacy: [facility] #[id number] Ordered: simvastatin 20 mg oral tablet,20 mg 1 tabs, Oral, Bedtime (once a day), # 90 tabs, 3 Refill(s), Pharmacy: [facility] #[id number] , 1 tabs Oral Bedtime (once a day),x90 days End of Orders ."
--- OUTSIDE RECORDS SUMMARY | 2017-11-03 13:01 | External Medical Summary | Referral Summary ---
:1925 Author Organization [facility] [address] [place] [id number] Care Team Providers Name Role Phone Harry Guillen Primary Care Physician Encounter VC Date(s): 11/12/16 - 11/12/16 [facility] [address] [place] [phone] Discharge Diagnosis: Hyperlipidemia Discharge Diagnosis: CKD (chronic kidney disease) stage 3, GFR 30-59 ml/min Discharge Diagnosis: Diabetes Discharge Diagnosis: Aspiration pneumonia Discharge Diagnosis: Oropharyngeal dysphagia Discharge Diagnosis: Hypertension Discharge Diagnosis: Non-ST elevation [place] (NSTEMI) Discharge Diagnosis: Diarrhea Discharge Diagnosis: Intermittent atrial fibrillation Discharge Diagnosis: Adult hypothyroidism Discharge Diagnosis: Blood loss anemia Discharge Disposition: 01-Home or Self Care Attending Physician: Harry Guillen MD Admitting Physician: Harry Guillen MD Vital Signs Most recent to oldest [Reference Range]: 1 Peripheral Pulse Rate [60-100 bpm] 80 bpm (11/12/16 9:39 AM) Blood Pressure [90-140/60-90 mmHg] 116/64 mmHg (11/12/16 9:39 AM) SpO2 97 % (11/12/16 9:39 AM) Problem List Condition Effective Dates Status Health Status Informant Acute pain(Confirmed) Active alcoholic blackout(Confirmed) Resolved Anemia(Confirmed) Resolved At high risk for Active pneumonia(Confirmed) At risk of pressure sore(Confirmed) Active Benign essential Active hypertension(Confirmed) Chronic cough(Confirmed) Active CKD (chronic kidney disease) stage Active 3, GFR 30-59 ml/min(Confirmed) Diabetes(Confirmed) Resolved Controlled diabetes mellitus type 2 Active with complications(Confirmed) Diabetic peripheral Active neuropathy(Confirmed) Foot callus(Confirmed) Active hx of hematuria(Confirmed) Resolved Hypertension(Confirmed) Resolved Impaired skin integrity(Confirmed)1 Active Knowledge deficit(Confirmed)2 Active Lymphedema(Confirmed) Active Hyperlipidemia(Confirmed) Resolved Osteoarthritis(Confirmed) Resolved Venous stasis dermatitis(Confirmed) Active Venous stasis dermatitis(Confirmed) Active Pleural effusion on right(Confirmed) Active Prostate cancer(Confirmed)3 Resolved Prostate specific antigen(Confirmed) 06/18/10 Resolved Prostate specific antigen(Confirmed) 09/29/06 Resolved Pure hypercholesterolemia(Confirmed) Active Tobacco user(Confirmed) Active patient Diabetic foot ulcer associated with Active type 2 diabetes mellitus(Confirmed) Controlled type 2 diabetes mellitus Active without complication(Confirmed) Diabetes type 2, Active uncontrolled(Confirmed) Weight loss(Confirmed) Active 1Problem added automatically by system based on initiation of Impaired Skin Integrity Plan of [id number] added automatically by system based on initiation of Knowledge Deficit Plan of [id number]? Allergies, Adverse Reactions, Alerts Substance Reaction Severity Status amoxicillin acute interstitial nephritis Active Bee Stings Active vancomycin rash, itching Active Medications acetaminophen 160 mg/5 mL oral liquid 160 mg 5 mL, G-Tube, q4hr, as needed for pain, 0 Refill(s) Start Date: 11/12/16 Status: Orderedamiodarone 200 mg oral tablet 200 mg 1 tabs, G-Tube, Daily, 0 Refill(s) Start Date: 10/28/16 Status: OrderedBenadryl 25 mg oral tablet 25 mg 1 tabs, G-Tube, Bedtime (once a day), as needed for insomnia, 0 Refill(s) Start Date: 10/28/16 Status: OrderedDuoNeb 0.5 mg-2.5 mg/3 mL inhalation solution 3 mL, NEB, TID, and Q 4 hours as needed, 0 Refill(s) Start Date: 11/12/16 Stop Date: 11/22/16 Status: OrderedEliquis 5 mg oral tablet 5 mg 1 tabs, G-Tube, BID, # 60 tabs, 0 Refill(s) Start Date: 11/12/16 Status: Orderedferrous sulfate 220 mg, G-Tube, Daily, 0 Refill(s) Start Date: 04/19/14 Status: Orderedfolic acid 1 mg oral tablet 1 mg 1 tabs, G-Tube, Daily, 0 Refill(s) Start Date: 11/12/16 Status: OrderedHome Oxygen (DME) DME Item to keep O2 sats > 90%, See Instructions, # 1 Each, 0 Refill(s), Supply Start Date: 11/12/16 Status: OrderedLantus 100 units/mL subcutaneous solution 10 units, SubCutaneous, Bedtime (once a day), 0 Refill(s) Start Date: 11/12/16 Status: Orderedlisinopril 5 mg oral tablet 5 mg 1 tabs, G-Tube, Daily, # 90 tabs, 3 Refill(s), Pharmacy: [facility] # [id number] Start Date: 09/09/16 Status: OrderedmetroNIDAZOLE 500 mg oral tablet 500 mg 1 tabs, G-Tube, q8hr, 0 Refill(s) Start Date: 11/12/16 Status: Orderedmiconazole 2% topical powder 1 evy, Topical, BID, as needed for rash, 0 Refill(s) Start Date: 11/12/16 Status: OrderedMisc Prescription See Instructions, give 1/2 can per G-tube with 50cc free water 6 times daily, 0 Refill(s) Start Date: 11/12/16 Status: OrderedNorco 7.5 mg-325 mg oral tablet 15 mL, G-Tube, q6hr, as needed for pain, 0 Refill(s) Start Date: 11/12/16 Status: Orderedpyridoxine 100 mg oral tablet 100 mg 1 tabs, G-Tube, Daily, 0 Refill(s) Start Date: 11/12/16 Status: Orderedranitidine 15 mg/mL oral syrup 300 mg 20 mL, G-Tube, Bedtime (once a day), 0 Refill(s) Start Date: 11/12/16 Status: Orderedthiamine 100 mg oral tablet 100 mg 1 tabs, G-Tube, Daily, 0 Refill(s) Start Date: 11/12/16 Status: Orderedtimolol 0.25% ophthalmic solution 1 drops, Eye-Both, BID, prescribed elsewhere, 0 Refill(s) Start Date: 04/19/14 Status: OrderedVitamin B12 1000 mcg oral tablet 2 tablets, G-Tube, Daily, 0 Refill(s) Start Date: 11/12/16 Status: OrderedXalatan 0.005% ophthalmic solution 1 drops, Eye-Both, Bedtime (once a day), prescribed elsewhere, # 2.5 mL, 0 Refill(s) Start Date: 04/19/14 Status: Orderedzolpidem 5 mg oral tablet 5 mg 1 tabs, G-Tube, Bedtime (once a day), as needed for sleep, 0 Refill(s) Start Date: 11/12/16 Status: Ordered Results Hematology Most recent to oldest [Reference Range]: 1 WBC [5.0-10.0 10*3/uL] 7.8 10*3/uL (11/12/16 9:57 AM) RBC [3.70-5.20] 3.22 *LOW* (11/12/16 9:57 AM) Hgb [12.0-16.0 gm/dL] 10.1 gm/dL *LOW* (11/12/16 9:57 AM) Hct [40.0-54.0 %] 32.9 % *LOW* (11/12/16 9:57 AM) MCV [80.0-96.0 fL] 102.2 fL *HI* (11/12/16 9:57 AM) MCH [26.0-34.0 pg] 31.4 pg (11/12/16 9:57 AM) MCHC [32.0-36.0 gm/dL] 30.7 gm/dL *LOW* (11/12/16 9:57 AM) RDW [0.0-14.5 %] 13.8 % (11/12/16 9:57 AM) Platelet [150-400 10*3/uL] 328 10*3/uL (11/12/16 9:57 AM) MPV [8.8-14.8 fL] 10.3 fL (11/12/16 9:57 AM) Neutrophils [50-70 %] 76 % *HI* (11/12/16 9:57 AM) Lymphocytes [20-40 %] 12 % *LOW* (11/12/16 9:57 AM) Monocytes [4-8 %] 9 % *HI* (11/12/16 9:57 AM) Eosinophils [0-6 %] 3 % (11/12/16 9:57 AM) Basophils [0-2 %] 0 % (11/12/16 9:57 AM) Neutro Absolute [2.50-7.00] 5.98 (11/12/16 9:57 AM) Lymph Absolute [1.00-4.00] 0.90 *LOW* (11/12/16 9:57 AM) Harnett Absolute [0.20-0.80] 0.71 (11/12/16 9:57 AM) Eos Absolute [0.00-0.60] 0.22 (11/12/16 9:57 AM) Baso Absolute [0.00-0.30] 0.02 (11/12/16 9:57 AM) Coagulation Most recent to oldest [Reference Range]: 1 PT Venous (11/12/16 9:57 AM) INR [0.8-1.2] 2.1 1 *HI* (11/12/16 9:57 AM) 1Result Comment: Normal (no anticoagulant): 0.8 - 1.2 Units Routine Therapeutic Range: 2.0 - 3.0 Units High Risk Therapeutic Range: 2.5 - 3.5 UnitsChemistry Most recent to oldest [Reference Range]: 1 Sodium Venous [136-144 mmol/L] 141 mmol/L (11/12/16 9:57 AM) Potassium Venous [3.6-5.1 mmol/L] 4.6 mmol/L 1 (11/12/16 9:57 AM) Calcium Ionized Venous [1.19-1.41 mmol/L] 1.21 mmol/L (11/12/16 9:57 AM) Total CO2 Venous [25-29 mmol/L] 25 mmol/L (11/12/16 9:57 AM) Glucose Venous [70-100 mg/dL] 132 mg/dL *HI* (11/12/16 9:57 AM) BUN Venous [4-20] 24 *HI* (11/12/16 9:57 AM) Creatinine Venous [0.7-1.2 mg/dL] 1.0 mg/dL (11/12/16 9:57 AM) Venous CL [99-109 mmol/L] 105 mmol/L (11/12/16 9:57 AM) T4 Free [0.7-1.5 ng/dL] 0.9 ng/dL (11/12/16 9:57 AM) TSH [0.35-4.94] 31.59 *HI* (11/12/16 9:57 AM) T3 Free [1.7-3.7 pg/mL] 1.3 pg/mL *LOW* (11/12/16 9:57 AM) 1Result Comment: This test was performed on a whole blood specimen. The presence or absence of hemolysis cannot be assessed. Hemolysis can falsely elevate potassium levels. Normals are for venous specimens only. Immunizations Given and Recorded Vaccine Date Status Refusal Reason influenza virus vaccine, inactivated 09/09/16 Given influenza virus vaccine, inactivated1 08/08/14 Recorded influenza virus vaccine, live 07/27/13 Given influenza virus vaccine, live 08/12/12 Given pneumococcal 13-valent conjugate vaccine 12/08/14 Given pneumococcal 23-polyvalent vaccine 05/06/06 Recorded pneumococcal 23-polyvalent vaccine 03/27/99 Recorded tetanus-diphth toxoids (Td) adult/adol 04/13/07 Recorded tetanus-diphth toxoids (Td) adult/adol 03/31/97 Recorded zoster vaccine live 07/24/09 Recorded 1Result Comment: [08/08/2014] See scanned document Procedures Procedure Date Related Diagnosis Body Site Colonoscopy 2007 Cystourethroscopy 05/30/02 Colonoscopy 2001 Cystoscopy [...] Patient Education Author: Harry Guillen MD Date: 11/12/16 ENT Aspiration Pneumonia Aspiration pneumonia is an infection in your lungs. It occurs when food, liquid , or stomach contents (vomit) are inhaled (aspirated) into your lungs. When these things get into your lungs, swelling (inf lammation) and infection can occur. This can make it difficult for you to breathe. Aspiration pneumonia is a serious condition and can be life threatening. RISK FACTORS Aspiration pneumonia is more likely to occur when a person's cough (gag) reflex or ability to swallow has been decreased. Some things that can do this include: Having a brain injury or disease, such as stroke, seizures, Parkinson's disease, dementia, or amyotrophic lateral sclerosis (ALS). Being given general anesthetic for procedures. Being in a coma (unconscious). Having a narrowing of the tube that carries food to the stomach ( esophagus). Drinking too much alcohol. If a person passes out and vomits, vomit can be swallowed into the lungs. Taking certain medicines, such as tranquilizers or sedatives. SIGNS AND SYMPTOMS Coughing after swallowing food or liquids. Breathing problems, such as wheezing or shortness of breath. Bluish skin. This can be caused by lack of oxygen. Coughing up food or mucus. The mucus might contain blood, greenish material, or yellowish-white fluid (pus). Fever. Chest pain. Being more tired than usual (fatigue). Sweating more than usual. Bad breath. DIAGNOSIS A physical exam will be done. During the exam, the health care provider will listen to your lungs with a stethoscope to check for: Crackling sounds in the lungs. Decreased breath sounds. A rapid heartbeat. Various tests may be ordered. These may include: Chest X-ray. CT scan. Swallowing study. This test looks at how food is swallowed and whether it goes into your breathing tube (trachea) or food pipe (esophagus). Sputum culture. Saliva and mucus (sputum) are collected from the lungs or the tubes that carry air to the lungs (bronchi). The sputum is then tested for bacteria. Bronchoscopy. This test uses a flexible tube (bronchoscope) to see inside the lungs. TREATMENT Treatment will usually include antibiotic medicines. Other medicines may also be used to reduce fever or pain. You may need to be treated in the hospital. In the hospital, your breathing will be careful ly monitored. Depending on how well you are breathing, you may need to be given oxygen, or you may need breathing support from a breathing machine ( ventilator). For people who fail a swallowing study, a feeding tube might be placed in the stomach, or they may be asked to avoid certain food textures or liquids when they eat. HOME CARE INSTRUCTIONS Carefully follow any special eating instructions you were given, such as avoiding certain food textures or thickening liquids. This reduces the risk of developing aspiration pneumonia again. Only take [id number] or prescription medicines as directed by your health care provider. Follow the directions carefully. If you were prescribed antibiotics, take them as directed. Finish them even if you start to feel better. Rest as instructed by your health care provider. Keep all follow-up appointments with your health care provider. SEEK MEDICAL CARE IF: You develop worsening shortness of breath, wheezing, or difficulty breathing. You develop a fever. You have chest pain. MAKE SURE YOU: Understand these instructions. Will watch your condition. Will get help right away if you are not doing well or get worse. This information is not intended to replace advice given to you by your health care provider. Make sure you discuss any questions you have with your health care provider. Document Released: 08/09/2010 Document Revised: 10/17/2014 Document Reviewed: 03/30/2014 [employer] Interactive Patient Education 2016 [employer] No follow up information was provided. Extracted from: Title: multiple problems Author: Harry Guillen MD Date: 11/12/16 Impression and Plan Diagnosis Blood loss anemia (FQR61-HC D50.0, Discharge, Medical). Aspiration pneumonia (GAP85-AX J69.0, Discharge, Medical). Oropharyngeal dysphagia (XBE55-VQ R13.12, Discharge, Medical). Non-ST elevation [place] (NSTEMI) (UAK83-QR I21.4, Discharge, Medical). Diarrhea (TCE05-IN R19.7, Discharge, Medical). Intermittent atrial fibrillation (BRD00-FL I48.0, Discharge, Medical). Diabetes (MOM35-YK E11.9, Discharge, Medical). Hyperlipidemia (XKZ11-AU E78.2, Discharge, Medical). CKD (chronic kidney disease) stage 3, GFR 30-59 ml/min (ZBO53-IS N18.3, Discharge, Medical). Adult hypothyroidism (XDK92-AQ E03.9, Discharge, Medical). Hypertension (OQE12-WB I10, Discharge, Medical). Plan: 1) Start patient back on his Thiamine 100 mg daily + Pyridoxine 100 mg daily + Vitamin B12 2000 mcg daily + Folic acid 1 mg daily for pernicious anemia. 2) Empirically started Metronidazole 500 mg TID X 10 days for diarrhea and aspiration pneumonia. 3) Stool test ordered for C. Difficile. 4) Lab ordered--relatively stable. 5) CXR ordered--relatively stable (bilateral pleural effusions noted). 6) Formula changed to Glucerna, 6 times daily (1/2 can at a time + 50 cc water ). 7) BMP and CBC ordered for next week. 8) See me in the office in 2 weeks and as needed. 9) Continue skilled therapies and services. He remains NPO at this time. 10) Continue oxygen at 2L/min.. Orders Orders (Selected) Outpatient Orders Ordered Free T4: Office Visit Level 5 Est 68888: T3 Free: TSH 3rd Generation: Canceled BNP: Troponin: Completed CBC w/ Differential: Chest XR 2 Views: INR (PT): Message for Lab: Metabolic Panel i-STAT: . Dx/Order Association Plan: Diagnosis: Adult hypothyroidism Comment: Ordered: Free T4; Blood, Routine Collect, 11/12/16 9:49:00 PORT SURVEYOR, Once, Stop date 11/12/16 9:49:00 PORT SURVEYOR, Lab Collect, Adult hypothyroidism T3 Free; Blood, Routine Collect, 11/12/16 9:49:00 PORT SURVEYOR, Once, Stop date 11/12/16 9:49:00 PORT SURVEYOR, Lab Collect, Adult hypothyroidism TSH 3rd Generation; Blood, Routine Collect, 9:49:00 PORT SURVEYOR, Once, Stop date 11/12/16 9:49:00 PORT SURVEYOR, Lab Collect, Adult hypothyroidism Modified: Office Visit Level 5 Est [id number]; 11/12/16 11:06:00 PORT SURVEYOR, Aspiration pneumonia | Blood loss anemia | Non-ST elevation [place] (NSTEMI) | Intermittent atrial fibrillation | Oropharyngeal dysphagia | Diarrhea | Diabetes | Hyperlipidemia | CKD (chronic kidney disease ) stage 3, GFR 30-59 ml/min... Diagnosis: Aspiration pneumonia Comment: Modified: Office Visit Level 5 Est [id number]; 11/12/16 11:06:00 PORT SURVEYOR, Aspiration pneumonia | Blood loss anemia | Non-ST elevation [place] (NSTEMI) | Intermittent atrial fibrillation | Oropharyngeal dysphagia | Diarrhea | Diabetes | Hyperlipidemia | CKD (chronic kidney disease ) stage 3, GFR 30-59 ml/min... Other status: Message for Lab; Blood, Routine Collect, Collected , 11/12/16 9:49:00 PORT SURVEYOR, N/A, Aspiration pneumonia | Intermittent atrial fibrillation | Non-ST elevation [place] (NSTEMI) | Diabetes (Completed) Chest XR 2 Views; 11/12/16 9:49:00 PORT SURVEYOR, Routine, Stop date 11/12/16 9:49:00 PORT SURVEYOR, Reason: Pneumonia, Transport Mode: Patient Bed, Patient has IV, Patient on O2, Aspira tion pneumonia, ABN Status: Not Required (Completed) Diagnosis: Blood loss anemia Comment: Modified: Office Visit Level 5 Est [id number]; 11/12/16 11:06:00 PORT SURVEYOR, Aspiration pneumonia | Blood loss anemia | Non-ST elevation [place] (NSTEMI) | Intermittent atrial fibrillation | Oropharyngeal dysphagia | Diarrhea | Diabetes | Hyperlipidemia | CKD (chronic kidney disease ) stage 3, GFR 30-59 ml/min... Other status: CBC w/ Differential; Blood, Stat Collect, 11/12/16 9:49:00 PORT SURVEYOR, Once, Stop date 11/12/16 9:49:00 PORT SURVEYOR, Lab Collect, Blood loss anemia | Non-ST elevation [place] (NSTEMI) (Completed) Diagnosis: CKD (chronic kidney disease) stage 3, GFR 30-59 ml/min Comment: Modified: Office Visit Level 5 Est [id number]; 11/12/16 11:06:00 PORT SURVEYOR, Aspiration pneumonia | Blood loss anemia | Non-ST elevation [place] (NSTEMI) | Intermittent atrial fibrillation | Oropharyngeal dysphagia | Diarrhea | Diabetes | Hyperlipidemia | CKD (chronic kidney disease ) stage 3, GFR 30-59 ml/min... Other status: Metabolic Panel i-STAT; Blood, Stat Collect, 9:49:00 PORT SURVEYOR, Once, Stop date 11/12/16 9:49:00 PORT SURVEYOR, Lab Collect, CKD (chronic kidney disease) stage 3, GFR 30-59 ml/min | Diabetes | Diarrhea (Completed) Diagnosis: Diabetes Comment: Modified: Office Visit Level 5 Est [id number]; 11/12/16 11:06:00 PORT SURVEYOR, Aspiration pneumonia | Blood loss anemia | Non-ST elevation [place] (NSTEMI) | Intermittent atrial fibrillation | Oropharyngeal dysphagia | Diarrhea | Diabetes | Hyperlipidemia | CKD (chronic kidney disease ) stage 3, GFR 30-59 ml/min... Other status: Metabolic Panel i-STAT; Blood, Stat Collect, 9:49:00 PORT SURVEYOR, Once, Stop date 11/12/16 9:49:00 PORT SURVEYOR, Lab Collect, CKD (chronic kidney disease) stage 3, GFR 30-59 ml/min | Diabetes | Diarrhea (Completed) Message for Lab; Blood, Routine Collect, Collected, 11/12/16 9:49:00 PORT SURVEYOR, N/A, Aspiration pneumonia | Intermittent atrial fibrillation | Non-ST elevation [place] (NSTEMI) | Diabetes (Completed) Diagnosis: Diarrhea Comment: Modified: Office Visit Level 5 Est [id number]; 11/12/16 11:06:00 PORT SURVEYOR, Aspiration pneumonia | Blood loss anemia | Non-ST elevation [place] (NSTEMI) | Intermittent atrial fibrillation | Oropharyngeal dysphagia | Diarrhea | Diabetes | Hyperlipidemia | CKD (chronic kidney disease ) stage 3, GFR 30-59 ml/min... Other status: Metabolic Panel i-STAT; Blood, Stat Collect, 9:49:00 PORT SURVEYOR, Once, Stop date 11/12/16 9:49:00 PORT SURVEYOR, Lab Collect, CKD (chronic kidney disease) stage 3, GFR 30-59 ml/min | Diabetes | Diarrhea (Completed) Diagnosis: Hyperlipidemia Comment: Modified: Office Visit Level 5 Est 48719; 11/12/16 11:06:00 PORT SURVEYOR, Aspiration pneumonia | Blood loss anemia | Non-ST elevation [place] (NSTEMI) | Intermittent atrial fibrillation | Oropharyngeal dysphagia | Diarrhea | Diabetes | Hyperlipidemia | CKD (chronic kidney disease ) stage 3, GFR 30-59 ml/min... Diagnosis: Hypertension Comment: Modified: Office Visit Level 5 Est [id number]; 11/12/16 11:06:00 PORT SURVEYOR, Aspiration pneumonia | Blood loss anemia | Non-ST elevation [place] (NSTEMI) | Intermittent atrial fibrillation | Oropharyngeal dysphagia | Diarrhea | Diabetes | Hyperlipidemia | CKD (chronic kidney disease ) stage 3, GFR 30-59 ml/min... Diagnosis: Intermittent atrial fibrillation Comment: Modified: Office Visit Level 5 Est [id number]; 11/12/16 11:06:00 PORT SURVEYOR, Aspiration pneumonia | Blood loss anemia | Non-ST elevation [place] (NSTEMI) | Intermittent atrial fibrillation | Oropharyngeal dysphagia | Diarrhea | Diabetes | Hyperlipidemia | CKD (chronic kidney disease ) stage 3, GFR 30-59 ml/min... Other status: INR (PT); Blood, Stat Collect, 11/12/16 9:49:00 PORT SURVEYOR , Once, Stop date 11/12/16 9:49:00 PORT SURVEYOR, Lab Collect, Intermittent atrial fibrillation (Completed) Message for Lab; Blood, Routine Collect, Collected, 11/12/16 9:49:00 PORT SURVEYOR, N/A, Aspiration pneumonia | Intermittent atrial fibrillation | Non-ST elevation [place] (NSTEMI) | Diabetes (Completed) Diagnosis: Non-ST elevation [place] (NSTEMI) Comment: Modified: Office Visit Level 5 Est [id number]; 11/12/16 11:06:00 PORT SURVEYOR, Aspiration pneumonia | Blood loss anemia | Non-ST elevation [place] (NSTEMI) | Intermittent atrial fibrillation | Oropharyngeal dysphagia | Diarrhea | Diabetes | Hyperlipidemia | CKD (chronic kidney disease ) stage 3, GFR 30-59 ml/min... Other status: CBC w/ Differential; Blood, Stat Collect, 11/12/16 9:49:00 PORT SURVEYOR, Once, Stop date 11/12/16 9:49:00 PORT SURVEYOR, Lab Collect, Blood loss anemia | Non-ST elevation [place] (NSTEMI) (Completed) BNP; Blood, Routine Collect, 11/12/16 9:49: 00 PORT SURVEYOR, Once, Stop date 11/12/16 9:49:00 PORT SURVEYOR, Lab Collect, Non-ST elevation [place] ( NSTEMI) (Canceled) Troponin; Blood, Routine Collect, 11/12/16 9:49:00 PORT SURVEYOR, Once, Stop date 11/12/16 9:49:00 PORT SURVEYOR, Lab Collect, Non-ST elevation [place] (NSTEMI) (Canceled) Message for Lab; Blood, Routine Collect, Collected, 11/12/16 9:49:00 PORT SURVEYOR, N/A, Aspiration pneumonia | Intermittent atrial fibrillation | Non-ST elevation [place] (NSTEMI) | Diabetes (Completed) Diagnosis: Oropharyngeal dysphagia Comment: Modified: Office Visit Level 5 Est [id number]; 11/12/16 11:06:00 PORT SURVEYOR, Aspiration pneumonia | Blood loss anemia | Non-ST elevation [place] (NSTEMI) | Intermittent atrial fibrillation | Oropharyngeal dysphagia | Diarrhea | Diabetes | Hyperlipidemia | CKD (chronic kidney disease ) stage 3, GFR 30-59 ml/min... End of Orders ."
--- OUTSIDE RECORDS SUMMARY | 2017-11-03 13:01 | External Medical Summary | Referral Summary ---
:1925 Author Organization [facility] Address [address] [place] [address] [place] [id number] Care Team Providers Name Role Phone Harry Guillen Primary Care Physician Encounter VC Date(s): 07/03/15 - 07/03/15 [facility] [address] [place] [phone] [place] Discharge Disposition: 01-Home or Self Care Attending Physician: Harry Guillen MD Admitting Physician: Harry Guillen MD Vital Signs Most recent to oldest [Reference Range]: 1 Temperature Tympanic [36.6-38.1 degC] 37.5 degC (07/03/15 10:07 AM) Peripheral Pulse Rate [60-100 bpm] 41 bpm *LOW* (07/03/15 10:07 AM) Blood Pressure [90-140/60-90 mmHg] 128/58 mmHg (07/03/15 10:07 AM) SpO2 98 % (07/03/15 10:07 AM) Problem List Condition Effective Dates Status [...] type 2, Active uncontrolled(Confirmed) Weight loss(Confirmed) Active 68338? Allergies, Adverse Reactions, Alerts Substance Reaction Severity Status amoxicillin acute interstitial nephritis Active Bee Stings Active vancomycin rash, itching Active Medications Aspirin Low Dose 81 mg, Oral, Daily, 0 Refill(s) Start Date: 04/19/14 Status: Orderedcontour test strips contour test strips, See Instructions, Test blood sugars twice daily Dx: E11.9 , # 1 bottles, 3 Refill(s), Pharmacy: [facility] #[id number], Test blood sugars twice daily; Dx: E11.9 Start Date: 11/13/15 Status: Orderedfamotidine 20 mg oral tablet 20 mg 1 tabs, Oral, BID, as needed for itching, # 60 tabs, 3 Refill(s), Pharmacy : [facility] #[id number], 1 tabs Oral BID,PRN:as needed for itching Start Date: 10/04/15 Status: Orderedferrous sulfate 325 mg, Oral, BID, 0 Refill(s) Start Date: 04/19/14 Status: Orderedfolic acid 0.8 mg oral tablet 1 tabs, Oral, Daily, 0 Refill(s) Start Date: 04/19/14 Status: OrderedJanuvia 50 mg oral tablet 50 mg 1 tabs, Oral, Daily, X 90 days, # 90 tabs, 11 Refill(s), Pharmacy: [facility] #[id number] Start Date: 12/11/15 Stop Date: 11/25/18 Status: OrderedLasix 40 mg oral tablet 40 mg 1 tabs, Oral, Daily, # 90 tabs, 3 Refill(s), Pharmacy: [facility] # [id number], 1 tabs Oral Daily Start Date: 10/04/15 Status: Orderedlisinopril 5 mg oral tablet 5 mg 1 tabs, Oral, Daily, # 90 tabs, 3 Refill(s), Pharmacy: [facility] # [id number], 1 tabs Oral Daily Start Date: 10/04/15 Status: Orderedsimvastatin 20 mg oral tablet 20 mg 1 tabs, Oral, Bedtime (once a day), # 90 tabs, 3 Refill(s), Pharmacy: [facility] #[id number], 1 tabs Oral Bedtime (once a day),x90 [...] Refill(s) Start Date: 04/19/14 Status: Ordered Results Hematology Most recent to oldest [Reference Range]: 1 WBC [4.8-10.8 10*3/uL] 7.9 10*3/uL (07/03/15 11:34 AM) RBC [4.60-6.20] 3.78 *LOW* (07/03/15 11:34 AM) Hgb [14.0-18.0 gm/dL] 12.3 gm/dL *LOW* (07/03/15 11:34 AM) Hct [42.0-52.0 %] 36.8 % *LOW* (07/03/15 11:34 AM) MCV [82.0-99.0 fL] 97.4 fL (07/03/15 11:34 AM) MCH [27.0-32.0 pg] 32.5 pg *HI* (07/03/15 11:34 AM) MCHC [32.0-36.0 gm/dL] 33.4 gm/dL (07/03/1534 AM) RDW [11.5-14.5 %] 12.8 % (07/03/15:34 AM) Platelet [150-400 10*3/uL] 233 10*3/uL (07/03/1534 AM) MPV [8.8-14.8 fL] 10.8 fL (07/03/1534 AM) Immature Granulocytes [0.0-1.0 %] 0.3 % (07/03/1534 AM) Neutrophils [51-75 %] 69 % (07/03/1534 AM) Lymphocytes [20-46 %] 18 % *LOW* (07/03/15) Monocytes [4-11 %] 9 % (07/03/15 AM) Eosinophils [0-4 %] 4 % (07/03/1534 AM) Basophils [0-2 %] 0 % (07/03/15:34 AM) Neutro Absolute [1.90-7.00 10*3] 5.49 10*3 (07/03/15:34 AM) Lymph Absolute [0.80-3.30 10*3] 1.42 10*3 (07/03/15:34 AM) [place] Absolute [0.30-1.00 10*3] 0.69 10*3 (07/03/15:34 AM) Eos Absolute [0.00-0.50 10*3] 0.31 10*3 (07/03/15:34 AM) Baso Absolute [0.00-0.20 10*3] 0.01 10*3 (07/03/15 11:34 AM) Chemistry Most recent to oldest [Reference Range]: 1 Sodium Lvl [135-144 mEq/L] 142 mEq/L (07/03/1534 AM) Potassium Lvl [3.5-5.2 mEq/L] 4.5 mEq/L (07/03/15:34 AM) Chloride [99-111 mEq/L] 114 mEq/L *HI* (07/03/1534 AM) CO2 [23-31 mEq/L] 21 mEq/L *LOW* (9/8/15 11:34 AM) AGAP [3-20] 7 (07/03/15 11:34 AM) BUN [8-26 mg/dL] 39 mg/dL *HI* (07/03/15 11:34 AM) Glucose Lvl [70-99 mg/dL] 125 mg/dL *HI* (07/03/15 11:34 AM) Creatinine Lvl [0.72-1.25 mg/dL] 1.43 mg/dL *HI* (07/03/15 11:34 AM) eGFR [>60 mL/min] 47 mL/min 1 *ABN* (07/03/15 11:34 AM) Calcium Lvl [8.9-10.5 mg/dL] 9.2 mg/dL (07/03/15 11:34 AM) Albumin Lvl [3.4-4.8 gm/dL] 4.0 gm/dL (07/03/15 11:34 AM) Total Protein [6.2-8.1 gm/dL] 6.8 gm/dL (07/03/15 11:34 AM) Globulin [1.8-4.0 gm/dL] 2.8 gm/dL (07/03/15 11:34 AM) ALT [0-55 U/L] 26 U/L (07/03/15 11:34 AM) AST [5-34 U/L] 22 U/L (07/03/15 11:34 AM) Alk Phos [40-150 U/L] 85 U/L (07/03/15 11:34 AM) Bili Total [0.2-1.2 mg/dL] 0.4 mg/dL (07/03/15 11:34 AM) Hgb A1c [4.1-5.6 %] 6.4 % *HI* (07/03/15 11:34 AM) eAvg Glucose 137.0 mg/dL (07/03/15 11:34 AM) 1Result Comment: Multiply eGFR results by 1.21 for race. Immunizations Vaccine Date Refusal Reason influenza virus [...] Paring or cutting of benign hyperkeratotic lesion 07/03/15 (eg, corn or callus); 2 to 4 lesions Paring or cutting of benign hyperkeratotic lesion 07/03/15 (eg, corn or callus); 2 to 4 lesions Paring or cutting of benign hyperkeratotic lesion 07/03/15 (eg, corn or callus); 2 to 4 lesions Paring or cutting of benign hyperkeratotic lesion 07/03/15 (eg, corn or callus); 2 to 4 lesions Colonoscopy 2006 Cystourethroscopy 05/30/02 Colonoscopy 2001 Cystoscopy [...] Patient Education Author: Harry Guillen MD Date: 07/03/15 Allergy Edema Edema is an abnormal buildup of fluids in your bodytissues. Edema is somewhatdependent on gravity to pull the fluid to the lowest place in your body. That makes the condition more common in the legs and thighs (lower extremities). Painless swelling of the feet and ankles is common and becomes more likely as you get older. It is also common in looser tissues, like around your eyes. When the affected area is squeezed, the fluid may move out of that spot and leave a dent for a few moments. This dent is called pitting. CAUSES There are many possible causes of edema. Eating too much salt and being on your feet or sitting for a long time can cause edema in your legs and ankles. Hot weather may make edema worse. Common medical causes of edema include: Heart failure. Liver disease. Kidney disease. Weak blood vessels in your legs. Cancer. An injury. . Some medications. Obesity. SYMPTOMS Edema is usually painless.Your skin may look swollen or shiny. DIAGNOSIS Your health care provider may be able to diagnose edema by asking about your medical history and doing a physical exam. You may need to have tests such as X- rays, an electrocardiogram, or blood tests to check for medical conditions that may cause edema. TREATMENT Edema treatment depends on the cause. If you have heart, liver, or kidney disease, you need the treatment appropriate for these conditions. General treatment may include: Elevation of the affected body part above the level of your heart. Compression of the affected body part. Pressure from elastic bandages or support stockings squeezes the tissues and forces fluid back into the blood vessels. This keeps fluid from entering the tissues. Restriction of fluid and salt intake. Use of a water pill (diuretic). These medications are appropriate only for some types of edema. They pull fluid out of your body and make you urinate more often. This gets rid of fluid and reduces swelling, but diuretics can have side effects. Only use diuretics as directed by your health care provider. HOME CARE INSTRUCTIONS Keep the affected body part above the level of your heart when you are lying down. Do not sit still or stand for prolonged periods. Do not put anything directly under your knees when lying down. Do not wear constricting clothing or garters on your upper legs. Exercise your legs to work the fluid back into your blood vessels. This may help the swelling go down. Wear elastic bandages or support stockings to reduce ankle swelling as directed by your health care provider. Eat a low-salt diet to reduce fluid if your health care provider recommends it. Only take medicines as directed by your health care provider. SEEK MEDICAL CARE IF: Your edema is not responding to treatment. You have heart, liver, or kidney disease and notice symptoms of edema. You have edema in your legs that does not improve after elevating them. You have sudden and unexplained weight gain. SEEK IMMEDIATE MEDICAL CARE IF: You develop shortness of breath or chest pain. You cannot breathe when you lie down. You develop pain, redness, or warmth in the swollen areas. You have heart, liver, or kidney disease and suddenly get edema. You have a fever and your symptoms suddenly get worse. MAKE SURE YOU: Understand these instructions. Will watch your condition. Will get help right away if you are not doing well or get worse. Document Released: 10/12/2006 Document Revised: 10/17/2014 Document Reviewed: 08/04/2014 ExitCare Patient Information 2015 [employer] [facility]. This information is not intended to replace advice given to you by your health care provider. Make sure you discuss any questions you have with your health care provider. No follow up information was provided. Extracted from: Title: diabetes, foot callus, HTN Author: Harry Guillen MD Date: 07/03/15 Impression and Plan Diagnosis CKD (chronic kidney disease) stage 3, GFR 30-59 ml/min (ICD9 585.3, Working, Medical). Controlled diabetes mellitus type 2 with complications (ICD9 250.90, Working, Medical). Diabetic foot ulcer associated with type 2 diabetes mellitus (ICD9 250.80, Working, Medical). Diabetic peripheral neuropathy (ICD9 250.60, Working, Medical). Foot callus (ICD9 700, Working, Medical). Hyperlipidemia (ICD9 272.4, Working, Medical). Hypertension (ICD9 401.9, Working, Medical). Lymphedema (ICD9 457.1, Working, Medical). Venous stasis dermatitis (ICD9 454.1, Working, Medical). Plan: 1) The left foot calluses, including the one with a tiny ulcer, were trimmed manually by me using a #15 scalpel blade, which was well tolerated by the patient. 2) The legs were wrapped with new rigo wraps for his peripheral edema and stasis dermatitis. 3) Continue your present meds. 4) Lab ordered today. 5) See me in 3 months and as needed.. Orders Orders (Selected) Outpatient Orders Ordered CBC w/ Differential: CMP: Hgb A1c: Office Visit Level 4 Est 00570: Paring Or Cutting Of Benign Hyperkeratotic Lesion (Eg, [place] Or Callus); Two To Four Lesions [id number]...: Ordered (Pending Collection) Albumin/Creatinine Ratio, Urine: . Dx/Order Association Plan: Diagnosis: CKD (chronic kidney disease) stage 3, GFR 30-59 ml/min Comment: Ordered: Office Visit Level 4 Est 92907; 07/03/15 11:10:00 CDT, 25, Diabetic foot ulcer associated with type 2 diabetes mellitus | Foot callus | Diabetic peripheral neuropathy | Hypertension | Lymphedema Diagnosis: Controlled diabetes mellitus type 2 with complications Comment: Ordered: Hgb A1c; Blood, Routine Collect, 07/03/15 11:28:00 CDT, Once, Stop date 07/03/15 11:28:00 CDT, Lab Collect, Controlled diabetes mellitus type 2 with complications CMP; Blood, Routine Collect, 07/03/15 11:28:00 CDT , Once, Stop date 07/03/15 11:28:00 CDT, Lab Collect, Controlled diabetes mellitus type 2 with complications Albumin/Creatinine Ratio, Urine; Urine, Routine collect, 07/03/15 11:28:00 CDT, Once, Stop date 07/03/15 11:28:00 CDT, Nurse Collect Non-Blood, Controlled diabetes mellitus type 2 with complications Diagnosis: Diabetic foot ulcer associated with type 2 diabetes mellitus Comment: Ordered: Paring Or Cutting Of Benign Hyperkeratotic Lesion (Eg, [place] Or Callus); Two To Four Lesions 36053; 07/03/15 11:10:00 CDT, 1, Foot callus | Diabetic foot ulcer associated with type 2 diabetes mellitus Office Visit Level 4 Est 27576; 07/03/15 11:10:00 CDT, 25, Diabetic foot ulcer associated with type 2 diabetes mellitus | Foot callus | Diabetic peripheral neuropathy | Hypertension | Lymphedema Diagnosis: Diabetic peripheral neuropathy Comment: Ordered: Office Visit Level 4 Est 92416; 07/03/15 11:10:00 CDT, 25, Diabetic foot ulcer associated with type 2 diabetes mellitus | Foot callus | Diabetic peripheral neuropathy | Hypertension | Lymphedema Diagnosis: Foot callus Comment: Ordered: Paring Or Cutting Of Benign Hyperkeratotic Lesion (Eg, [place] Or Callus); Two To Four Lesions 56504; 07/03/15 11:10:00 CDT, 1, Foot callus | Diabetic foot ulcer associated with type 2 diabetes mellitus Office Visit Level 4 Est 00523; 07/03/15 11:10:00 CDT, 25, Diabetic foot ulcer associated with type 2 diabetes mellitus | Foot callus | Diabetic peripheral neuropathy | Hypertension | Lymphedema Diagnosis: Hyperlipidemia Comment: Ordered: Office Visit Level 4 Est 36519; 07/03/15 11:10:00 CDT, 25, Diabetic foot ulcer associated with type 2 diabetes mellitus | Foot callus | Diabetic peripheral neuropathy | Hypertension | Lymphedema Diagnosis: Hypertension Comment: Ordered: CBC w/ Differential; Blood, Routine Collect, 07/03/15 11 :28:00 CDT, Once, Stop date 07/03/15 11:28:00 CDT, Lab Collect, Hypertension Office Visit Level 4 Est 65855; 07/03/15 11:10:00 CDT, 25, Diabetic foot ulcer associated with type 2 diabetes mellitus | Foot callus | Diabetic peripheral neuropathy | Hypertension | Lymphedema Diagnosis: Lymphedema Comment: Ordered: Office Visit Level 4 Est 03656; 07/03/15 11:10:00 CDT, 25, Diabetic foot ulcer associated with type 2 diabetes mellitus | Foot callus | Diabetic peripheral neuropathy | Hypertension | Lymphedema Diagnosis: Venous stasis dermatitis Comment: Ordered: Office Visit Level 4 Est 59351; 07/03/15 11:10:00 CDT, 25, Diabetic foot ulcer associated with type 2 diabetes mellitus | Foot callus | Diabetic peripheral neuropathy | Hypertension | Lymphedema End of Orders ."
--- OUTSIDE RECORDS SUMMARY | 2017-11-03 13:01 | External Medical Summary | Referral Summary ---
:1925 Author [facility] Address [address] [place] [address] [place] [phone] Care Team Providers Name Role Phone Harry Guillen Primary Care Physician Encounter VC Date(s): 03/06/15 - 03/06/15 [facility] [address] [place] [phone] [place] Discharge Disposition: 01-Home or Self Care Attending Physician: Hrary Guillen MD Admitting Physician: Harry Guillen MD [...] type 2, Active uncontrolled(Confirmed) Weight loss(Confirmed) Active 70857? Allergies, Adverse Reactions, Alerts Substance Reaction Severity Status amoxicillin acute interstitial nephritis Active Bee Stings Active vancomycin rash, itching Active Medications Aspirin Low Dose 81 mg, Oral, Daily, 0 Refill(s) Start Date: 04/19/14 Status: Orderedfamotidine 20 mg oral tablet 20 mg 1 tabs, Oral, BID, as needed for itching, # 60 tabs, 5 Refill(s), Pharmacy : [facility] #[id number], 1 tabs Oral BID,PRN:as needed for itching Start Date: 05/01/15 Status: Orderedferrous sulfate 325 mg, Oral, BID, 0 Refill(s) Start Date: 04/19/14 Status: Orderedfolic acid 0.8 mg oral tablet 1 tabs, Oral, Daily, 0 Refill(s) Start Date: 04/19/14 Status: OrderedJanuvia 50 mg oral tablet See Instructions, TAKE ONE TABLET BY MOUTH DAILY, # 30 tabs, 2 Refill(s), eRx: [facility] #[id number], TAKE ONE TABLET BY MOUTH DAILY Start Date: 08/16/15 Status: OrderedLasix 40 mg oral tablet 1 tabs, Oral, Daily, # 90 tabs, 3 Refill(s), Pharmacy: [facility] #[id number] , 1 tabs Oral Daily,x90 days Start Date: 03/06/15 Stop Date: 02/29/16 Status: Orderedlisinopril 5 mg oral tablet 1 tabs, Oral, Daily, # 90 tabs, 3 Refill(s), Pharmacy: [facility] #[id number] , 1 tabs Oral Daily Start Date: 03/06/15 Status: Orderedsimvastatin 20 mg oral tablet 1 tabs, Oral, Bedtime (once a day), # 90 tabs, 3 Refill(s), Pharmacy: [facility] #[id number], 1 tabs Oral Bedtime (once a day),x90 [...] day), # 90 tabs, 3 Refill(s), Pharmacy: [facility] #[id number], 1 tabs Oral Bedtime (once a day),x90 [...] Document Revised: 01/03/2013 Document Reviewed: 06/08/2012 [facility] Patient Information 2014 [employer]. No follow up information was provided. Extracted [...] Orders Ordered Office Visit Level 5 Est 27258: Paring/Cutting Hypkeratotic Lesion, Single 17781: Prescriptions Prescribed Januvia 50 mg oral tablet: [...] Comment: Ordered: Office Visit Level 5 Est 20906; 03/06/15 11:21:00 CDT, Foot callus | Diabetic foot ulcer associated with type 2 diabetes mellitus | Controlled type 2 diabetes mellitus without com plication | Hyperlipidemia | CKD (chronic kidney disease) stage 3, GFR 30-59 ml /min Diagnosis: Controlled type 2 diabetes mellitus without complication Comment: Ordered: Office Visit Level 5 Est 88986; 03/06/15 11:21:00 CDT, Foot callus | Diabetic foot ulcer associated with type 2 diabetes mellitus | Controlled type 2 diabetes mellitus without com plication | Hyperlipidemia | CKD (chronic kidney disease) stage 3, GFR 30-59 ml /min Diagnosis: Diabetic foot ulcer associated with type 2 diabetes mellitus Comment: Ordered: Paring/Cutting Hypkeratotic Lesion, Single 31875; 11:21:00 CDT, 1, Foot callus | Diabetic foot ulcer associated with type 2 diabetes mellitus Office Visit Level 5 Est 59372; 03/06/15 11:21:00 CDT, Foot callus | Diabetic foot ulcer associated with type 2 diabetes mellitus | Controlled type 2 diabetes mellitus witho ut complication | Hyperlipidemia | CKD (chronic kidney disease) stage 3, GFR 30 -59 ml/min Diagnosis: Foot callus Comment: Ordered: Paring/Cutting Hypkeratotic Lesion, Single 94214; 11:21:00 CDT, 1, Foot callus | Diabetic foot ulcer associated with type 2 diabetes mellitus Office Visit Level 5 Est 76810; 03/06/15 11:21:00 CDT, Foot callus | Diabetic foot ulcer associated with type 2 diabetes mellitus | Controlled type 2 diabetes mellitus witho ut complication | Hyperlipidemia | CKD (chronic kidney disease) stage 3, GFR 30 -59 ml/min Diagnosis: Hyperlipidemia Comment: Ordered: Office Visit Level 5 Est 35861; 03/06/15 11:21:00 CDT, Foot callus | Diabetic foot ulcer associated with type 2 diabetes mellitus | Controlled type 2 diabetes mellitus without com plication | Hyperlipidemia | CKD (chronic kidney disease) stage 3, GFR 30-59 ml /min Diagnosis: Hypertension Comment: Ordered: Office Visit Level 5 Est 51482; 03/06/15 11:21:00 CDT, Foot callus | Diabetic foot ulcer associated with type 2 diabetes mellitus | Controlled type 2 diabetes mellitus without com plication | Hyperlipidemia | CKD (chronic kidney disease) stage 3, GFR 30-59 ml /min Diagnosis: Lymphedema Comment: Ordered: Office Visit Level 5 Est 80655; 03/06/15 11:21:00 CDT, Foot callus | Diabetic foot ulcer associated with type 2 diabetes mellitus | Controlled type 2 diabetes mellitus without com plication | Hyperlipidemia | CKD (chronic kidney disease) stage 3, GFR 30-59 ml /min Diagnosis: Venous stasis dermatitis Comment: Ordered: Office Visit Level 5 Est 13263; 03/06/15 11:21:00 CDT, Foot callus | Diabetic foot ulcer associated with type 2 diabetes mellitus | Controlled type 2 diabetes mellitus without com plication | Hyperlipidemia | CKD (chronic kidney disease) stage 3, GFR 30-59 ml /min Additional Orders: Comment: Ordered: Januvia 50 mg oral tablet,1 tabs, Oral, Daily, # 30 tabs , 3 Refill(s), Pharmacy: [facility] #[id number] Ordered: Lasix 40 mg oral tablet,1 tabs, Oral, Daily, # 90 tabs, 3 Refill(s), Pharmacy: [facility] #[id number], 1 tabs Oral Daily,x90 days Ordered: Zantac 300 oral tablet,1 tabs, Oral, Bedtime (once a day) , # 90 tabs, 3 Refill(s), Pharmacy: [facility] #[id number], 1 tabs Oral Bedtime (once a day),x90 days Ordered: lisinopril 5 mg oral tablet,1 tabs, Oral, Daily, # 90 tabs, 3 Refill(s), Pharmacy: [facility] #[id number], 1 tabs Oral Daily Ordered: simvastatin 20 mg oral tablet,1 tabs, Oral, Bedtime ( once a day), # 90 tabs, 3 Refill(s), Pharmacy: [facility] #[id number], 1 tabs Oral Bedtime (once a day),x90 days End of Orders ."
--- OUTSIDE RECORDS SUMMARY | 2017-11-03 13:01 | External Medical Summary | Referral Summary ---
:1925 Author Organization [facility] Address [address] [place] [address] [place] [phone] Care Team Providers Name Role Phone Harry Guillen Primary Care Physician Encounter VC Date(s): 03/26/15 - 03/26/15 [facility] [place] [phone] Discharge Disposition: 01-Home or Self Care Attending Physician: Harry Guillen MD Admitting Physician: Harry Guillen MD Vital Signs Most recent to oldest [Reference Range]: 1 Temperature Tympanic [36.6-38.1 degC] 36.1 degC *LOW* (03/26/15 10:53 AM) Peripheral Pulse Rate [60-100 bpm] 48 bpm *LOW* (03/26/15 10:53 AM) Respiratory Rate [14-20 br/min] 16 br/min (03/26/15 10:53 AM) Blood Pressure [90-140/60-90 mmHg] 132/62 mmHg (03/26/15 10:53 AM) SpO2 96 % (03/26/15 10:53 AM) Problem List Condition Effective Dates Status [...] type 2, Active uncontrolled(Confirmed) Weight loss(Confirmed) Active 18290? Allergies, Adverse Reactions, Alerts Substance Reaction Severity Status amoxicillin acute interstitial nephritis Active Bee Stings Active vancomycin rash, itching Active Medications Aspirin Low Dose 81 mg, Oral, Daily, 0 Refill(s) Start Date: 04/19/14 Status: Orderedfamotidine 20 mg oral tablet 20 mg 1 tabs, Oral, BID, as needed for itching, # 60 tabs, 3 Refill(s), Pharmacy : [facility] #[id number], 1 tabs Oral BID,PRN:as needed for itching Start Date: 10/04/15 Status: Orderedferrous sulfate 325 mg, Oral, BID, 0 Refill(s) Start Date: 04/19/14 Status: Orderedfolic acid 0.8 mg oral tablet 1 tabs, Oral, Daily, 0 Refill(s) Start Date: 04/19/14 Status: OrderedJanuvia 50 mg oral tablet 50 mg 1 tabs, Oral, Daily, X 90 days, # 90 tabs, 3 Refill(s), Pharmacy: [facility] #[id number] Start Date: 10/04/15 Stop Date: 09/28/16 Status: OrderedLasix 40 mg oral tablet 40 mg 1 tabs, Oral, Daily, # 90 tabs, 3 Refill(s), Pharmacy: [facility] # [id number], 1 tabs Oral Daily Start Date: 10/04/15 Status: Orderedlisinopril 5 mg oral tablet 5 mg 1 tabs, Oral, Daily, # 90 tabs, 3 Refill(s), Pharmacy: [facility] # [id number], 1 tabs Oral Daily Start Date: 10/04/15 Status: Orderedsimvastatin 20 mg oral tablet 20 mg 1 tabs, Oral, Bedtime (once a day), # 90 tabs, 3 Refill(s), Pharmacy: [facility] #[id number], 1 tabs Oral Bedtime (once a day),x90 [...] day), # 90 tabs, 3 Refill(s), Pharmacy: [facility] #[id number], 1 tabs Oral Bedtime (once a day) [...] Paring or cutting of benign hyperkeratotic lesion 03/26/15 (eg, corn or callus); single lesion Colonoscopy 2006 Cystourethroscopy 05/30/02 Colonoscopy 2002 Cystoscopy 2002 Hospital admission for rib fractures and syncope 2002 Detachment of retinal-2 surgeries 2000 Esophagogastroduodenoscopy [EGD] with closed 1998 biopsy Colonoscopy 1996 Colonoscopy 1994 Hospital admission fro kidney stones 1991 Inguinal herniorrhaphy 1989 Radical prostatectomy 1988 Appendectomy Cataract extraction Hernia repair Social History Social History Type Response Smoking Status Former smoker; Type: Cigarettes Assessment and Plan Extracted from: Title: Ambulatory Patient Education Author: Harry Guillen MD Date: 03/26/15 Family Medicine Corns and Calluses Corns are [...] 07/18/2005 Document Revised: 01/03/2013 Document Reviewed: 06/08/2012 [facility] Patient Information 2014 [employer]. Diabetes and Foot Care Diabetes may cause you to have problems because of poor blood supply ( circulation ) to your feet and legs. This may cause the skin on your feet to become thinner, break easier, and heal more slowly. You r skin may become dry, and the skin may peel and crack. You may also have nerve damage in your legs and feet causing decreased feeling in them. You may not notice minor injuries to your feet that could lead to infections or more serious problems. Taking [...] feet. Always look in your shoes before you put them on to be sure there [...] smell coming from an ulcer or wound. Document Released: 10/09/2001 Document Revised: 06/14/2014 Document Reviewed: 03/21/2014 [facility]. No follow up information was provided. Extracted from: Title: cough, foot ulcer, DM, HTN Author: Harry Guillen MD Date: 03/26/15 Impression and Plan Diagnosis Chronic cough (ICD9 786.2, Working, Medical). CKD [...] Working, Medical). Lymphedema (ICD9 457.1, Working, Medical). Osteoarthritis (ICD9 715.90, Working, Medical). Pleural effusion on right (ICD9 511.9, Working, Medical). Venous stasis dermatitis (ICD9 454.1, Working, Medical). Plan: The left foot callus with associated hemorrhagic ulcer under the left foot first MTH was trimmed by me with a #15 scalpel blade. Patient tolerated this well. Continue your same meds and see me in the office for another recheck of the foot ulcer and callus in one month. Get a chest xray today, due to your cough and pleural effusion. . Orders Orders (Selected) Outpatient Orders Ordered Office Visit Level 4 Est 12244: Paring/Cutting Hypkeratotic Lesion, Single 78156: Future (On Hold) XR Chest 2 Views: . Dx/Order Association Plan: Diagnosis: CKD (chronic kidney disease) stage 3, GFR 30-59 ml/min Comment: Modified: Office Visit Level 4 Est 83883; 03/26/15 11:22:00 CDT, 25, Diabetic foot ulcer associated with type 2 diabetes mellitus | Controlled type 2 diabetes mellitus without complication | Chronic cough | Pleural effusion on right | Venous stasis dermatitis Diagnosis: Chronic cough Comment: Modified: Office Visit Level 4 Est 32736; 03/26/15 11:22:00 CDT, 25, Diabetic foot ulcer associated with type 2 diabetes mellitus | Controlled type 2 diabetes mellitus without complication | Chronic cough | Pleural effusion on right | Venous stasis dermatitis Diagnosis: Controlled type 2 diabetes mellitus without complication Comment: Modified: Office Visit Level 4 Est 36064; 03/26/15 11:22:00 CDT, 25, Diabetic foot ulcer associated with type 2 diabetes mellitus | Controlled type 2 diabetes mellitus without complication | Chronic cough | Pleural effusion on right | Venous stasis dermatitis Diagnosis: Diabetic foot ulcer associated with type 2 diabetes mellitus Comment: Ordered: Paring/Cutting Hypkeratotic Lesion, Single 73742; 11:22:00 CDT, 1, Foot callus | Diabetic foot ulcer associated with type 2 diabetes mellitus Modified: Office Visit Level 4 Est 13570; 03/26/15 11:22:00 CDT, 25, Diabetic foot ulcer associated with type 2 diabetes mellitus | Controlled type 2 diabetes mellitus without complication | Chronic cough | Pleural effusion on right | Venous stasis dermatitis Diagnosis: Foot callus Comment: Ordered: Paring/Cutting Hypkeratotic Lesion, Single 78893; 11:22:00 CDT, 1, Foot callus | Diabetic foot ulcer associated with type 2 diabetes mellitus Modified: Office Visit Level 4 Est 42898; 03/26/15 11:22:00 CDT, 25, Diabetic foot ulcer associated with type 2 diabetes mellitus | Controlled type 2 diabetes mellitus without complication | Chronic cough | Pleural effusion on right | Venous stasis dermatitis Diagnosis: Hyperlipidemia Comment: Modified: Office Visit Level 4 Est 12805; 03/26/15 11:22:00 CDT, 25, Diabetic foot ulcer associated with type 2 diabetes mellitus | Controlled type 2 diabetes mellitus without complication | Chronic cough | Pleural effusion on right | Venous stasis dermatitis Diagnosis: Hypertension Comment: Modified: Office Visit Level 4 Est 52208; 03/26/15 11:22:00 CDT, 25, Diabetic foot ulcer associated with type 2 diabetes mellitus | Controlled type 2 diabetes mellitus without complication | Chronic cough | Pleural effusion on right | Venous stasis dermatitis Diagnosis: Lymphedema Comment: Modified: Office Visit Level 4 Est 13723; 03/26/15 11:22:00 CDT, 25, Diabetic foot ulcer associated with type 2 diabetes mellitus | Controlled type 2 diabetes mellitus without complication | Chronic cough | Pleural effusion on right | Venous stasis dermatitis Diagnosis: Osteoarthritis Comment: Modified: Office Visit Level 4 Est 43196; 03/26/15 11:22:00 CDT, 25, Diabetic foot ulcer associated with type 2 diabetes mellitus | Controlled type 2 diabetes mellitus without complication | Chronic cough | Pleural effusion on right | Venous stasis dermatitis Diagnosis: Pleural effusion on right Comment: Modified: Office Visit Level 4 Est 83594; 03/26/15 11:22:00 CDT, 25, Diabetic foot ulcer associated with type 2 diabetes mellitus | Controlled type 2 diabetes mellitus without complication | Chronic cough | Pleural effusion on right | Venous stasis dermatitis Diagnosis: Venous stasis dermatitis Comment: Modified: Office Visit Level 4 Est 27597; 03/26/15 11:22:00 CDT, 25, Diabetic foot ulcer associated with type 2 diabetes mellitus | Controlled type 2 diabetes mellitus without complication | Chronic cough | Pleural effusion on right | Venous stasis dermatitis Additional Orders: Comment: Future Orders: XR Chest 2 Views,*Est. 03/26/15 due within 1 days, Routine, Reason: Cough, Chronic cough | Pleural effusion on right End of Orders ."
--- OUTSIDE RECORDS SUMMARY | 2017-11-03 13:01 | External Medical Summary | Referral Summary ---
:1925 Author Organization [facility] [place] [address] Care Team Providers Name Role Phone Harry Guillen Primary Care Physician Encounter VC Date(s): 02/05/16 - 02/05/16 [facility] [place] [phone] [place] Discharge Disposition: 01-Home or Self Care Attending Physician: Harry Guillen MD Admitting Physician: Harry Guillen MD Vital Signs Most recent to oldest [Reference Range]: 1 Temperature Tympanic [36.6-38.1 degC] 37.4 degC (02/05/16 2:02 PM) Peripheral Pulse Rate [60-100 bpm] 64 bpm (02/05/16 2:02 PM) Blood Pressure [90-140/60-90 mmHg] 126/62 mmHg (02/05/16 2:02 PM) Problem List Condition Effective Dates Status Health Status Informant alcoholic blackout(Confirmed) Resolved Anemia(Confirmed) Resolved At high risk for Active pneumonia(Confirmed) Benign essential Active hypertension(Confirmed) Chronic cough(Confirmed) Active [...] type 2, Active uncontrolled(Confirmed) Weight loss(Confirmed) Active 53202? Allergies, Adverse Reactions, Alerts Substance Reaction Severity Status amoxicillin acute interstitial nephritis Active Bee Stings Active vancomycin rash, itching Active Medications Aspirin Low Dose 81 mg, Oral, Daily, 0 Refill(s) Start Date: 04/19/14 Status: Orderedcontour test strips contour test strips, See Instructions, Test blood sugars twice daily Dx: E11.9 , # 1 bottles, 3 Refill(s), Pharmacy: [facility] #[id number], Test blood sugars twice daily; Dx: E11.9 Start Date: 11/13/15 Status: Orderedfamotidine 20 mg oral tablet 20 mg 1 tabs, Oral, BID, as needed for itching, # 60 tabs, 3 Refill(s), Pharmacy : [facility] #[id number], 1 tabs Oral BID,PRN:as needed for itching Start Date: 10/04/15 Status: Orderedferrous sulfate 325 mg, Oral, BID, 0 Refill(s) Start Date: 04/19/14 Status: Orderedfolic acid 0.8 mg oral tablet 1 tabs, Oral, Daily, 0 Refill(s) Start Date: 04/19/14 Status: OrderedJanuvia 50 mg oral tablet 50 mg 1 tabs, Oral, Daily, X 90 days, # 90 tabs, 11 Refill(s), Pharmacy: [facility] #[id number] Start Date: 12/11/15 Stop Date: 11/25/18 Status: OrderedLasix 40 mg oral tablet 40 mg 1 tabs, Oral, Daily, # 90 tabs, 3 Refill(s), Pharmacy: [facility] # [id number], 1 tabs Oral Daily Start Date: 10/04/15 Status: Orderedlisinopril 5 mg oral tablet 5 mg 1 tabs, Oral, Daily, # 90 tabs, 3 Refill(s), Pharmacy: [facility] # [id number], 1 tabs Oral Daily Start Date: 10/04/15 Status: Orderedsimvastatin 20 mg oral tablet 20 mg 1 tabs, Oral, Bedtime (once a day), # 90 tabs, 3 Refill(s), Pharmacy: [facility] #[id number], 1 tabs Oral Bedtime (once a day),x90 [...] Patient Education Author: Harry Guillen MD Date: 02/05/16 Allergy Edema Edema is an abnormal buildup [...] often. This gets rid of fluid and reduce s swelling, but diuretics can have side effects. [...] with your health care provider. Document Released: 10/12/2006 Document Revised: 02/26/2015 Document Reviewed: 08/04/2014 [employer] Patient Information 2015 [employer]. No follow up information was provided. Extracted from: Title: DM, lymphedema,HTN Author: Harry Guillen MD Date: 02/05/16 Impression and Plan Diagnosis CKD (chronic kidney disease) stage 3, GFR 30-59 ml/min ([id number]-KU N18.3, Working , Medical). Controlled type 2 diabetes mellitus without complication ([id number]-GX E11.9, Working, Medical). Lymphedema (HOF63-NI I89.0, Working, Medical). Venous stasis dermatitis (BSD85-WS I87.2, Working, Medical). Pure hypercholesterolemia (EXI90-SK E78.0, Working, Medical). Benign essential hypertension (HVW53-WE I10, Working, Medical). Plan: 1) Continue your current meds and treatments. 2) No lab needed today. 3) See me in 3 months and as needed.. Orders Orders (Selected) Outpatient Orders Ordered Office Visit Level 4 Est 53487: . Dx/Order Association Plan: Diagnosis: Benign essential hypertension Comment: Ordered: Office Visit Level 4 Est 09674; 02/05/16 18:05:00 CDT, Controlled type 2 diabetes mellitus without complication | Lymphedema | Venous stasis dermatitis | Pure hypercholesterolemia | Benign essential hypertension Diagnosis: CKD (chronic kidney disease) stage 3, GFR 30-59 ml/min Comment: Diagnosis: Controlled type 2 diabetes mellitus without complication Comment: Ordered: Office Visit Level 4 Est 69376; 02/05/16 18:05:00 CDT, Controlled type 2 diabetes mellitus without complication | Lymphedema | Venous stasis dermatitis | Pure hypercholesterolemia | Benign essential hypertension Diagnosis: Lymphedema Comment: Ordered: Office Visit Level 4 Est 26041; 02/05/16 18:05:00 CDT, Controlled type 2 diabetes mellitus without complication | Lymphedema | Venous stasis dermatitis | Pure hypercholesterolemia | Benign essential hypertension Diagnosis: Pure hypercholesterolemia Comment: Ordered: Office Visit Level 4 Est 12861; 02/05/16 18:05:00 CDT, Controlled type 2 diabetes mellitus without complication | Lymphedema | Venous stasis dermatitis | Pure hypercholesterolemia | Benign essential hypertension Diagnosis: Venous stasis dermatitis Comment: Ordered: Office Visit Level 4 Est 90553; 02/05/16 18:05:00 CDT, Controlled type 2 diabetes mellitus without complication | Lymphedema | Venous stasis dermatitis | Pure hypercholesterolemia | Benign essential hypertension End of Orders ."
--- OUTSIDE RECORDS SUMMARY | 2017-11-03 13:01 | External Medical Summary | Referral Summary ---
:1925 Author Organization [facility] [address] [place] [id number] Care Team Providers Name Role Phone Harry Guillen Primary Care Physician Encounter VC Date(s): 05/06/16 - 05/06/16 [facility] [address] [place] [phone] [phone] Discharge Disposition: 01-Home or Self Care Attending Physician: Harry Guillen MD Admitting Physician: Harry Guillen MD Vital Signs Most recent to oldest [Reference Range]: 1 Temperature Tympanic [36.6-38.1 degC] 36.9 degC (05/06/16 10:54 AM) Peripheral Pulse Rate [60-100 bpm] 84 bpm (05/06/16 10:54 AM) Blood Pressure [90-140/60-90 mmHg] 114/60 mmHg (05/06/16 10:54 AM) Problem List Condition Effective Dates Status [...] type 2, Active uncontrolled(Confirmed) Weight loss(Confirmed) Active 98022? Allergies, Adverse Reactions, Alerts Substance Reaction Severity Status amoxicillin acute interstitial nephritis Active Bee Stings Active vancomycin rash, itching Active Medications aspirin 325 mg, Oral, Daily, 1/2 to 1 tablet daily, 0 Refill(s) Start Date: 05/06/16 Status: OrderedAspirin Low Dose 81 mg, Oral, Daily, 0 Refill(s) Start Date: 04/19/14 Status: Orderedcontour test strips contour test strips, See Instructions, Test blood sugars twice daily Dx: E11.9 , # 1 bottles, 3 Refill(s), Pharmacy: [facility] #[id number], Test blood sugars twice daily; Dx: E11.9 Start Date: 11/13/15 Status: Orderedfamotidine 20 mg oral tablet 20 mg 1 tabs, Oral, BID, as needed for itching, # 60 tabs, 11 Refill(s), Pharmacy: [facility] #[id number], 1 tabs Oral BID,PRN:as needed for itching Start Date: 05/06/16 Status: Orderedferrous sulfate 325 mg, Oral, BID, 0 Refill(s) Start Date: 04/19/14 Status: Orderedfolic acid 0.8 mg oral tablet 1 tabs, Oral, Daily, 0 Refill(s) Start Date: 04/19/14 Status: OrderedJanuvia 50 mg oral tablet 50 mg 1 tabs, Oral, Daily, X 90 days, # 90 tabs, 11 Refill(s), Pharmacy: [facility] #[id number] Start Date: 12/11/15 Stop Date: 11/25/18 Status: OrderedLasix 40 mg oral tablet 40 mg 1 tabs, Oral, Daily, # 90 tabs, 3 Refill(s), Pharmacy: [facility] # [id number], 1 tabs Oral Daily Start Date: 10/04/15 Status: Orderedlisinopril 5 mg oral tablet 5 mg 1 tabs, Oral, Daily, # 90 tabs, 3 Refill(s), Pharmacy: [facility] # [id number], 1 tabs Oral Daily Start Date: 10/04/15 Status: Orderedranitidine 300 mg oral tablet 300 mg 1 tabs, Oral, Bedtime (once a day), 0 Refill(s) Start Date: 05/06/16 Status: Orderedsimvastatin 20 mg oral tablet 20 mg 1 tabs, Oral, Bedtime (once a day), # 90 tabs, 3 Refill(s), Pharmacy: [facility] #[id number], 1 tabs Oral Bedtime (once a day),x90 [...] oldest [Reference Range]: 1 WBC [4.8-10.8 10*3/uL] 8.6 10*3/uL (05/06/16 11:47 AM) RBC [4.60-6.20] 3.87 *LOW* (05/06/16 11:47 AM) Hgb [14.0-18.0 gm/dL] 12.4 gm/dL *LOW* (05/06/16 11:47 AM) Hct [42.0-52.0 %] 37.4 % *LOW* (05/06/16 11:47 AM) MCV [82.0-99.0 fL] 96.6 fL (7/12/16 11:47 AM) MCH [27.0-32.0 pg] 32.0 pg (05/06/16:47 AM) MCHC [32.0-36.0 gm/dL] 33.2 gm/dL (05/06/16:47 AM) RDW [11.5-14.5 %] 12.6 % (05/06/16:47 AM) Platelet [150-400 10*3/uL] 231 10*3/uL (05/06/16 11:47 AM) MPV [8.8-14.8 fL] 10.8 fL (05/06/16:47 AM) Immature Granulocytes [0.0-1.0 %] 0.3 % (05/06/16:47 AM) Neutrophils [51-75 %] 67 % (05/06/16:47 AM) Lymphocytes [20-46 %] 20 % (05/06/16:47 AM) Monocytes [4-11 %] 11 % (05/06/16 11:47 AM) Eosinophils [0-4 %] 2 % (05/06/16 11:47 AM) Basophils [0-2 %] 0 % (05/06/16 11:47 AM) Neutro Absolute [1.90-7.00 10*3] 5.72 10*3 (05/06/16 11:47 AM) Lymph Absolute [0.80-3.30 10*3] 1.70 10*3 (05/06/16 11:47 AM) Peach Absolute [0.30-1.00 10*3] 0.92 10*3 (05/06/16 11:47 AM) Eos Absolute [0.00-0.50 10*3] 0.20 10*3 (05/06/16 11:47 AM) Baso Absolute [0.00-0.20 10*3] 0.01 10*3 (05/06/16 11:47 AM) Chemistry Most recent to oldest [Reference Range]: 1 Sodium Lvl [135-144 mEq/L] 143 mEq/L (05/06/16 11:47 AM) Potassium Lvl [3.5-5.2 mEq/L] 4.2 mEq/L (05/06/16 11:47 AM) Chloride [99-111 mEq/L] 110 mEq/L (05/06/16 11:47 AM) CO2 [23-31 mEq/L] 23 mEq/L (05/06/16:47 AM) AGAP [3-20] 10 (05/06/16 11:47 AM) BUN [8-26 mg/dL] 48 mg/dL *HI* (05/06/16:47 AM) Glucose Lvl [70-99 mg/dL] 161 mg/dL *HI* (05/06/16 11:47 AM) Creatinine Lvl [0.72-1.25 mg/dL] 1.48 mg/dL *HI* (05/06/16 11:47 AM) eGFR [>60 mL/min] 45 mL/min 1 *ABN* (05/06/16:47 AM) Calcium Lvl [8.9-10.5 mg/dL] 9.6 mg/dL (05/06/16:47 AM) Albumin Lvl [3.4-4.8 gm/dL] 4.0 gm/dL (05/06/16:47 AM) Total Protein [6.0-7.6 gm/dL] 7.2 gm/dL 2 (05/06/16:47 AM) Globulin [1.8-4.0 gm/dL] 3.2 gm/dL (05/06/16 11:47 AM) ALT [0-55 U/L] 21 U/L (05/06/16:47 AM) AST [5-34 U/L] 14 U/L (05/06/16:47 AM) Alk Phos [40-150 U/L] 136 U/L (05/06/16 11:47 AM) Bili Total [0.2-1.2 mg/dL] 0.4 mg/dL (05/06/16:47 AM) Chol [0-199 mg/dL] 118 mg/dL (05/06/16 11:47 AM) Trig [0-149 mg/dL] 43 mg/dL (05/06/16 11:47 AM) HDL [40-84 mg/dL] 58 mg/dL (05/06/16 11:47 AM) LDL [0-130 mg/dL] 51 mg/dL (05/06/16 11:47 AM) VLDL Cholesterol [0-28 mg/dL] 9 mg/dL (05/06/16 11:47 AM) Cardiac Risk [0.0-5.7] 2.0 (05/06/16 11:47 AM) Hgb A1c [4.1-5.6 %] 7.0 % *HI* (05/06/16 11:47 AM) eAvg Glucose 154.2 mg/dL (05/06/16 11:47 AM) 1Result Comment: Multiply eGFR results by 1.21 for race.2Result Comment: Please note new reference range for adult Protein. Immunizations Vaccine Date Refusal Reason influenza virus [...] Paring or cutting of benign hyperkeratotic lesion 05/06/16 (eg, corn or callus); 2 to 4 lesions Colonoscopy 2006 Cystourethroscopy 05/30/02 Colonoscopy 2002 Cystoscopy [...] Patient Education Author: Harry Guillen MD Date: 05/06/16 Preventive Medicine Heart Disease Prevention Heart disease is a leading cause of . There are many things you can do to help prevent heart disease. BE PHYSICALLY ACTIVE Physical activity is good for your heart. It helps control your blood pressure , cholesterol levels, and weight. Try to be physically active every day. Ask your health care provider what activities are best for you. BE A HEALTHY WEIGHT Extra weight can strain your heart and affect your blood pressure and cholesterol levels. Lose weight with diet and exercise if recommended by your health care provider. EAT HEART-HEALTHY FOODS Follow a healthy eating plan as recommended by your health care provider or dietitian. Heart-healthy foods include: High-fiber foods. These include oat bran, oatmeal, and whole-grain breads and cereals. Fruits and vegetables. Avoid: Alcohol. Fried foods. Foods high in saturated fat. These include meats, butter, whole dairy products, shortening, and coconut or palm oil. Salty foods. These include canned food, luncheon meat, salty snacks, and fast food. KEEP YOUR CHOLESTEROL LEVELS UNDER CONTROL Cholesterol is a substance that is used for many important functions. When your cholesterol levels are high, cholesterol can stick to the insides of your blood vessels, making them narrow or clog. This can lead to chest pain (angina) and a heart attack. Keep your cholesterol levels under control as recommended by your health care provider. Have your cholesterol checked at least once a year. Target cholesterol levels (in mg/dL) for most people are: Total cholesterol below 200. LDL cholesterol below 100. HDL cholesterol above 40 in men and above 50 in women. Triglycerides below 150. KEEP YOUR BLOOD PRESSURE UNDER CONTROL Having high blood pressure (hypertension) puts you at risk for stroke and other forms of heart disease. Keep your blood pressure under control as recommended by your health care provider. Ask your [facility] care provider if you need treatment to lower your blood pressure. If you are 1839 years of age, have your blood pressure checked every 35 years. If you are 40 years of age or older, have your blood pressure checked every year. DO NOT USE TOBACCO PRODUCTS Tobacco smoke can damage your heart and blood vessels. Do not use any tobacco products including cigarettes, chewing tobacco, or electronic cigarettes. If you need help quitting, ask your health care provider. TAKE MEDICINES DIRECTED Take medicines only as directed by your health care provider. Ask your health care provider whether you should take an aspirin every day. Taking aspirin can help reduce your risk of heart disease and stroke. FOR MORE INFORMATION To find out more about heart disease, visit the [place] [employer]'s website at www.americanheart.org This information is not intended to replace advice given to you by your health care provider. Make sure you discuss any questions you have with your health care provider. Document Released: 05/26/2005 Document Revised: 11/02/2015 Document Reviewed: 12/06/2014 Exit[employer] Patient Information 2016 [employer] [facility]. No follow up information was provided. Extracted from: Title: DM, HTN, foot calluses Author: Harry Guillen MD Date: 05/06/16 Impression and Plan Diagnosis CKD (chronic kidney disease) stage 3, GFR 30-59 ml/min (KPE87-HJ N18.3, Working , Medical). Controlled type 2 diabetes mellitus without complication (CGH18-DA E11.9, Working, Medical). Lymphedema (AWJ07-NL I89.0, Working, Medical). Venous stasis dermatitis (PQF09-KS I87.2, Working, Medical). Pure hypercholesterolemia (BRO73-SN E78.0, Working, Medical). Foot callus (WBN05-VV L84, Working, Medical). Anemia (MQK01-PV D64.9, Working, Medical). Benign essential HTN (GTQ92-FL I10, Working, Medical). Plan: 1) Two calluses were trimmed manually by me: the left first MTH and the left plantar heel. #15 scalpel blade was used. 2) Continue your current meds. 3) Lab ordered today. 4) See me in 4 months and as needed.. Orders Orders (Selected) Outpatient Orders Ordered CBC w/ Differential: CMP: Hgb A1c: Lipid Panel: Office Visit Level 4 Est 51705: Paring Or Cutting Of Benign Hyperkeratotic Lesion (Eg, [place] Or Callus); Two To Four Lesions [id number]...: eGFR: Ordered (Pending Collection) Albumin/Creatinine Ratio, Urine: Prescriptions Prescribed famotidine 20 mg oral tablet: 20 mg=1 tabs, Oral, BID, PRN: as needed for itching, 60 tabs, 11 Refill(s). Dx/Order Association Plan: Diagnosis: Anemia Comment: Ordered: CBC w/ Differential; Blood, Routine Collect, 05/06/16 11 :38:00 CDT, Once, Stop date 05/06/16 11:38:00 CDT, Lab Collect, Anemia | CKD ( chronic kidney disease) stage 3, GFR 30-59 ml/min | Benign essential HTN Diagnosis: Benign essential HTN Comment: Ordered: CMP; Blood, Routine Collect, 05/06/16 11:38:00 CDT, Once , Stop date 05/06/16 11:38:00 CDT, Lab Collect, Benign essential HTN | Pure hypercholesterolemia | Controlled type 2 diabetes mellitus without complication CBC w/ Differential; Blood, Routine Collect, 05/06 11:38:00 CDT, Once, Stop date 05/06/16 11:38:00 CDT, Lab Collect, Anemia | CKD (chronic kidney disease) stage 3, GFR 30-59 ml/min | Benign essential HTN Modified: Office Visit Level 4 Est [id number]; 05/06/16 11:01:00 CDT, 25, Controlled type 2 diabetes mellitus without complication | Lymphedema | Pure hypercholesterolemia | Benign essential HTN | Venous stasis dermatitis Diagnosis: CKD (chronic kidney disease) stage 3, GFR 30-59 ml/min Comment: Ordered: CBC w/ Differential; Blood, Routine Collect, 05/06/16 11 :38:00 CDT, Once, Stop date 05/06/16 11:38:00 CDT, Lab Collect, Anemia | CKD ( chronic kidney disease) stage 3, GFR 30-59 ml/min | Benign essential HTN Diagnosis: Controlled type 2 diabetes mellitus without complication Comment: Ordered: CMP; Blood, Routine Collect, 05/06/16 11:38:00 CDT, Once , Stop date 05/06/16 11:38:00 CDT, Lab Collect, Benign essential HTN | Pure hypercholesterolemia | Controlled type 2 diabetes mellitus without complication Hgb A1c; Blood, Routine Collect, 05/06/16 11:38: 00 CDT, Once, Stop date 05/06/16 11:38:00 CDT, Lab Collect, Controlled type 2 diabetes mellitus without complication Albumin/Creatinine Ratio, Urine; Urine, Routine collect, 05/06/16 11:38:00 CDT, Once, Stop date 05/06/16 11:38:00 CDT, Nurse Collect Non-Blood, Controlled type 2 diabetes mellitus without complication Modified: Office Visit Level 4 Est [id number]; 05/06/16 11:01:00 CDT, 25, Controlled type 2 diabetes mellitus without complication | Lymphedema | Pure hypercholesterolemia | Benign essential HTN | Venous stasis dermatitis Diagnosis: Diabetic peripheral neuropathy Comment: Ordered: Paring Or Cutting Of Benign Hyperkeratotic Lesion (Eg, [place] Or Callus); Two To Four Lesions [id number]; 05/06/16 12:39:00 CDT, 1, Foot callus | Diabetic peripheral neuropathy | Venous stasis dermatitis | Lymphedema Diagnosis: Foot callus Comment: Ordered: Paring Or Cutting Of Benign Hyperkeratotic Lesion (Eg, [place] Or Callus); Two To Four Lesions [id number]; 05/06/16 12:39:00 CDT, 1, Foot callus | Diabetic peripheral neuropathy | Venous stasis dermatitis | Lymphedema Diagnosis: Lymphedema Comment: Ordered: Paring Or Cutting Of Benign Hyperkeratotic Lesion (Eg, [place] Or Callus); Two To Four Lesions [id number]; 05/06/16 12:39:00 CDT, 1, Foot callus | Diabetic peripheral neuropathy | Venous stasis dermatitis | Lymphedema Modified: Office Visit Level 4 Est [id number]; 05/06/16 11:01:00 CDT, 25, Controlled type 2 diabetes mellitus without complication | Lymphedema | Pure hypercholesterolemia | Benign essential HTN | Venous stasis dermatitis Diagnosis: Pure hypercholesterolemia Comment: Ordered: CMP; Blood, Routine Collect, 05/06/16 11:38:00 CDT, Once , Stop date 05/06/16 11:38:00 CDT, Lab Collect, Benign essential HTN | Pure hypercholesterolemia | Controlled type 2 diabetes mellitus without complication Lipid Panel; Blood, Routine Collect, 05/06/16 11: 38:00 CDT, Once, Stop date 05/06/16 11:38:00 CDT, Lab Collect, Pure hypercholesterolemia Modified: Office Visit Level 4 Est [id number]; 05/06/16 11:01:00 CDT, 25, Controlled type 2 diabetes mellitus without complication | Lymphedema | Pure hypercholesterolemia | Benign essential HTN | Venous stasis dermatitis Diagnosis: Venous stasis dermatitis Comment: Ordered: Paring Or Cutting Of Benign Hyperkeratotic Lesion (Eg, [place] Or Callus); Two To Four Lesions [id number]; 05/06/16 12:39:00 CDT, 1, Foot callus | Diabetic peripheral neuropathy | Venous stasis dermatitis | Lymphedema Modified: Office Visit Level 4 Est [id number]; 05/06/16 11:01:00 CDT, 25, Controlled type 2 diabetes mellitus without complication | Lymphedema | Pure hypercholesterolemia | Benign essential HTN | Venous stasis dermatitis Additional Orders: Comment: Ordered: famotidine 20 mg oral tablet,20 mg 1 tabs, Oral, BID, as needed for itching, # 60 tabs, 11 Refill(s), Pharmacy: [facility] #[id number] , 1 tabs Oral BID,PRN:as needed for itching End of Orders ."
--- OUTSIDE RECORDS SUMMARY | 2017-11-03 13:02 | External Medical Summary | Referral Summary ---
:1925 Author Organization [facility] Address [address] [place] [address] Care Team Providers Name Role Phone Wilmer Harry Simi Primary Care Physician Encounter VC Date(s): 10/20/16 - 10/28/16 [facility] [address] [place] [address] [place] [phone] Discharge Disposition: 01-Home or Self Care Attending Physician: Naya Burns MD Admitting Physician: Abram Naqvi DO Vital Signs Most recent to oldest [Reference Range]: 1 Temperature Axillary [35.2-36.7 degC] 36.6 degC (10/25/16 4:00 AM) Temperature Oral [35.8-37.3 degC] 36.9 degC (10/28/16 11:05 AM) Temperature Temporal Artery [36.3-37.8 degC] 36.6 degC (10/22/16 4:00 PM) Peripheral Pulse Rate [60-100 bpm] 76 bpm (10/28/16 11:05 AM) Heart Rate Monitored [60-100 bpm] 85 bpm (10/22/16 6:50 PM) Respiratory Rate [14-20 br/min] 18 br/min (10/28/16 11:05 AM) Blood Pressure [90-140/60-90 mmHg] 141/49 mmHg *HI* (10/28/16 11:05 AM) Mean Arterial Pressure, Cuff 113 mmHg (10/22/16 5:00 PM) SpO2 94 % (10/28/16 11:05 AM) Remote Telemetry Ongoing (10/28/16 10:29 AM) Problem List Condition Effective Dates Status [...] initiation of Impaired Skin Integrity Plan of [id number] added automatically by system based on initiation of Knowledge Deficit Plan of [id number]? Allergies, Adverse Reactions, Alerts Substance Reaction Severity Status amoxicillin acute interstitial nephritis Active Bee Stings Active vancomycin rash, itching Active Medications acetaminophen 325 mg oral tablet 650 mg 2 tabs, Oral, q4hr, Pain Mild (1-3), 0 Refill(s) Start Date: 10/28/16 Status: Orderedamiodarone 200 mg oral tablet 200 mg 1 tabs, Oral, Daily, 0 Refill(s) Start Date: 10/28/16 Status: OrderedBenadryl 25 mg oral tablet 25 mg 1 tabs, Oral, Bedtime (once a day), Sleep, 0 Refill(s) Start Date: 10/28/16 Status: Orderedcefdinir 300 mg oral capsule 300 mg 1 caps, Oral, BID, through 10/29/2016, 0 Refill(s) Start Date: 10/23/16 Stop Date: 10/29/16 Status: Orderedclindamycin 150 mg oral capsule 300 mg 2 caps, Oral, QID, through 10/29/2016, 0 Refill(s) Start Date: 10/23/16 Stop Date: 10/29/16 Status: OrderedColace 100 mg oral capsule 100 mg 1 caps, Oral, BID, 0 Refill(s) Start Date: 10/28/16 Status: OrderedEliquis 5 mg oral tablet 5 mg 1 tabs, Oral, BID, 0 Refill(s) Start Date: 10/28/16 Status: Orderedferrous sulfate 325 mg, Oral, BID, 0 Refill(s) Start Date: 04/19/14 Status: Orderedfolic acid 0.8 mg oral tablet 0.8 mg 1 tabs, Oral, Daily, 0 Refill(s) Start Date: 04/19/14 Status: OrderedHYDROcodone-acetaminophen 5 mg-325 mg oral tablet 1 tabs, Oral, q4hr, Pain Moderate (4-6), 0 Refill(s) Start Date: 10/28/16 Status: OrderedJanuvia 50 mg oral tablet 50 mg 1 tabs, Oral, Bedtime (once a day), # 30 tabs, 0 Refill(s) Start Date: 10/20/16 Status: OrderedLasix 40 mg oral tablet 40 mg 1 tabs, Oral, Daily, 0 Refill(s) Start Date: 10/28/16 Status: Orderedlisinopril 5 mg oral tablet 5 mg 1 tabs, Oral, Daily, # 90 tabs, 3 Refill(s), Pharmacy: [facility] # [id number], 1 tabs Oral Daily Start Date: 09/09/16 Status: Orderedmiconazole 2% topical powder 1 evy, Topical, BID, Rash, 0 Refill(s) Start Date: 10/28/16 Status: OrderedraNITIdine 300 mg oral tablet 300 mg 1 tabs, Oral, Bedtime (once a day), # 30 tabs, 0 Refill(s), Pharmacy: [facility] #[id number], 1 tabs Oral Bedtime (once a day) Start Date: 09/09/16 Status: Orderedsimvastatin 20 mg oral tablet 20 mg 1 tabs, Oral, Bedtime (once a day), # 90 tabs, 3 Refill(s), Pharmacy: [facility] #[id number], 1 tabs Oral Bedtime (once a day),x90 days Start Date: 09/09/16 Stop Date: 09/04/17 Status: Orderedtimolol 0.25% ophthalmic solution 1 drops, [...] oldest [Reference Range]: 1 WBC [4.8-10.8 10*3/uL] 11.7 10*3/uL *HI* (10/27/16 5:26 AM) RBC [4.60-6.20] 3.32 *LOW* (10/27/16 5:26 AM) Hgb [14.0-18.0 gm/dL] 10.3 gm/dL *LOW* (10/27/16 5:26 AM) Hct [42.0-52.0 %] 33.2 % *LOW* (10/27/16 5:26 AM) MCV [82.0-99.0 fL] 100.0 fL *HI* (10/27/16 5:26 AM) MCH [27.0-32.0 pg] 31.0 pg (10/27/16 5:26 AM) MCHC [32.0-36.0 gm/dL] 31.0 gm/dL *LOW* (10/27/16 5:26 AM) RDW [11.5-14.5 %] 13.4 % (10/27/16 5:26 AM) Platelet [150-400 10*3/uL] 297 10*3/uL (10/27/16 5:26 AM) MPV [9.4-12.3 fL] 11.0 fL (10/27/16 5:26 AM) Coagulation Most recent to oldest [Reference Range]: 1 INR [0.9-1.2] 1.9 *HI* (10/20/16 5:07 AM) PTT [25.0-35.0 seconds] 69.6 seconds *HI* (10/22/16 4:26 AM) Chemistry Most recent to oldest [Reference Range]: 1 Sodium Lvl [136-144 mEq/L] 137 mEq/L (10/27/16 5:26 AM) Potassium Lvl [3.6-5.1 mEq/L] 4.1 mEq/L (10/27/16 5:26 AM) Chloride [99-109 mEq/L] 100 mEq/L (10/27/16 5:26 AM) CO2 [22-32 mEq/L] 30 mEq/L (10/27/16 5:26 AM) AGAP [3-20] 7 (10/27/16 5:26 AM) BUN [4-20 mg/dL] 31 mg/dL *HI* (10/27/16 5:26 AM) Glucose Lvl [70-100 mg/dL] 151 mg/dL *HI* (10/27/16 5:26 AM) Creatinine Lvl [0.64-1.27 mg/dL] 1.29 mg/dL *HI* (10/27/16 5:26 AM) eGFR [>60] 52 1 *ABN* (10/27/16 5:26 AM) Calcium Lvl [8.6-10.0 mg/dL] 8.3 mg/dL *LOW* (10/27/16 5:26 AM) Albumin Lvl [3.5-4.8 gm/dL] 2.3 gm/dL *LOW* (10/25/16 11:00 AM) Total Protein [6.1-7.9 gm/dL] 5.2 gm/dL *LOW* (10/25/16 11:00 AM) Globulin [1.9-4.3 gm/dL] 2.9 gm/dL (10/25/16 11:00 AM) ALT [17-63 U/L] 15 U/L *LOW* (10/25/16 11:00 AM) AST [15-41 U/L] 26 U/L (10/25/16 11:00 AM) Alk Phos [26-104 U/L] 84 U/L (10/25/16 11:00 AM) Bili Total [0.2-1.2 mg/dL] 0.5 mg/dL 2 (10/25/16 11:00 AM) Magnesium Lvl [1.8-2.5 mg/dL] 1.8 mg/dL (10/25/16 11:00 AM) Troponin [<0.06 ng/mL] 1.32 ng/mL 3 *HHI* (10/22/16 4:26 AM) Blood Glucose, Capillary [70-100 mg/dL] 210 mg/dL *HI* (10/28/16 11:44 AM) Chol [0-200 mg/dL] 75 mg/dL (10/20/16 5:07 AM) Trig [0-150 mg/dL] 34 mg/dL (10/20/16 5:07 AM) HDL [>40 mg/dL] 42 mg/dL (10/20/16 5:07 AM) LDL [0-100 mg/dL] 26 mg/dL (10/20/16 5:07 AM) VLDL Cholesterol [0-30 mg/dL] 7 mg/dL (10/20/16 5:07 AM) Cardiac Risk [0.0-5.7] 1.8 (10/20/16 5:07 AM) T4 Free [0.6-1.1 ng/dL] 0.9 ng/dL (10/20/16 5:07 AM) TSH with Reflex Free T4 [0.35-5.50] 8.23 *HI* (10/20/16 5:07 AM) Hgb A1c [4.1-5.6 %] 7.1 % *HI* (10/20/16 5:07 AM) eAvg Glucose 157.1 mg/dL (10/20/16 5:07 AM) Procalcitonin [0.00-0.09 ng/mL] 6.77 ng/mL 4 *HI* (12/26/16 12:53 PM) 1Result Comment: Multiply eGFR results by 1.21 for race.2Result Comment: Naproxen, specifically the metabolite O-desmethylnaproxen, may cause spurious elevation in Total Bilirubin levels.3Result Comment: Critical value called, and read-back verified. Called to 10/22/2016 05:23 Rosys [id number] Comment: Normal: <0.1 ng/mL (infants >72 hrs - adults) Suspected Lower Respiratory Tract Infection 0.10-0.25 ng/mL=Low likelihood for bacterial infection; Antibiotics discouraged. >0.25 ng/mL=Increased likelihood for bacterial infection; Antibiotics encouraged. Suspected Sepsis: Strongly consider initiating antibiotics in all unstable patients. 0.10-0.50 ng/mL=Low likelihood for sepsis; Antibiotics discouraged. >0.50 ng/mL=Increased likelihood for sepsis; Antibiotics encouraged. Decisions on antibiotic use should not be based solely on procalcitonin levels. If antibiotics are administered, repeat procalcitonin testing should be obtained every 2-3 days to consider early antibiotic cessation. PCT is a dynamic biomarker and most useful when trends are analyzed over time in accompaniment with other clinical data. Interpretation should be based upon clinical context and algorithms.Urinalysis Most recent to oldest [Reference Range]: 1 UA Color Yellow (10/20/16 10:44 AM) UA Appear Clear (10/20/16 10:44 AM) UA pH [5.0-8.0] 5.0 (10/20/16 10:44 AM) UA Leuk Est [Negative] Negative (10/20/16 10:44 AM) UA Nitrite [Negative] Negative (10/20/16 10:44 AM) UA Protein [Negative] Trace *ABN* (10/20/16 10:44 AM) UA Glucose [Negative] Negative (10/20/16 10:44 AM) UA Ketones [Negative] Trace *ABN* (10/20/16 10:44 AM) UA Urobilinogen [<1.0] Negative (10/20/16 10:44 AM) UA Bili [Negative] Negative (10/20/16 10:44 AM) UA Blood [Negative] Pos 2+ *ABN* (10/20/16 10:44 AM) UA Spec Grav [1.003-1.030] 1.020 (10/20/16 10:44 AM) Type Helms (10/20/16 10:44 AM) UA WBC [0-4] 2-5 (10/20/16 10:44 AM) UA RBC [0-2] 10-20 *ABN* (10/20/16 10:44 AM) Epithelial Cells 0-2 (10/20/16 10:44 AM) UA Bacteria Occasional *ABN* (10/20/16 10:44 AM) UA Hyal Cast [0-3] 1-3 (10/20/16 10:44 AM) UA Mucous Present (10/20/16 10:44 AM) Microbiology Reports TEST:Sputum Culture and Smear STATUS:Auth (Verified) BODY SITE: SOURCE:Sputum COLLECTED DATE/TIME:10/20/16 1:00 PMSputum Culture and SmearYeast large amount No other normal adolph isolated ORGANISM:Gram Negative RodsTEST:Blood Culture1 STATUS:Auth (Verified) BODY SITE: SOURCE:Blood COLLECTED DATE/TIME:10/20/16 12:54 PMBlood CultureNo growth after 5 days of incubation.TEST:Blood Culture2 STATUS:Auth (Verified) BODY SITE: SOURCE:Blood COLLECTED DATE/TIME:10/20/16 12:42 PMBlood CultureNo growth after 5 days of incubation.INTERPRETIVE DATA1Pediatric bottle ONLY [id number] bottle ONLY received Immunizations Given and Recorded Vaccine Date Status [...] Related Diagnosis Body Site Colonoscopy 2007 Cystourethroscopy 8/5/02 Colonoscopy 2002 Cystoscopy 2002 Hospital admission for rib fractures and syncope 2002 Detachment of retinal-2 surgeries 2000 Esophagogastroduodenoscopy [EGD] with closed 1998 biopsy Colonoscopy 1996 Colonoscopy 1994 Hospital admission fro kidney stones 1991 Inguinal herniorrhaphy 1989 Radical prostatectomy 1988 Appendectomy Cataract extraction Hernia repair Social History Social History Type Response Smoking Status Former smoker; Type: Cigarettes Assessment and Plan No data available for this section
--- OUTSIDE RECORDS SUMMARY | 2017-11-03 13:02 | External Medical Summary | Referral Summary ---
:1925 Author [facility] Address [address] [place] [address] [place] [address] Care Team Providers Name Role Phone Harry Guillen Primary Care Physician Encounter VC Date(s): 03/06/15 - 03/06/15 [facility] [place] [phone] [place] Discharge Disposition: [...] type 2, Active uncontrolled(Confirmed) Weight loss(Confirmed) Active 95378? Allergies, Adverse Reactions, Alerts Substance Reaction Severity Status amoxicillin acute interstitial nephritis Active Bee Stings Active vancomycin rash, itching Active Medications Aspirin Low Dose 81 mg, Oral, Daily, 0 Refill(s) Start Date: 04/19/14 Status: Orderedfamotidine 20 mg oral tablet 20 mg 1 tabs, Oral, BID, as needed for itching, # 60 tabs, 5 Refill(s), Pharmacy : [facility] #[id number], 1 tabs Oral BID,PRN:as needed for itching Start Date: 05/01/15 Status: Orderedferrous sulfate 325 mg, Oral, BID, 0 Refill(s) Start Date: 04/19/14 Status: Orderedfolic acid 0.8 mg oral tablet 1 tabs, Oral, Daily, 0 Refill(s) Start Date: 04/19/14 Status: OrderedJanuvia 50 mg oral tablet See Instructions, TAKE ONE TABLET BY MOUTH DAILY, # 30 tabs, 2 Refill(s), eRx: [facility] #[id number], TAKE ONE TABLET BY MOUTH DAILY Start Date: 08/16/15 Status: OrderedLasix 40 mg oral tablet 1 tabs, Oral, Daily, # 90 tabs, 3 Refill(s), Pharmacy: [facility] #[id number] , 1 tabs Oral Daily,x90 days Start Date: 03/06/15 Stop Date: 02/29/16 Status: Orderedlisinopril 5 mg oral tablet 1 tabs, Oral, Daily, # 90 tabs, 3 Refill(s), Pharmacy: [facility] #[id number] , 1 tabs Oral Daily Start Date: 03/06/15 Status: Orderedsimvastatin 20 mg oral tablet 1 tabs, Oral, Bedtime (once a day), # 90 tabs, 3 Refill(s), Pharmacy: [facility] #[id number], 1 tabs Oral Bedtime (once a day),x90 [...] day), # 90 tabs, 3 Refill(s), Pharmacy: [facility] #[id number], 1 tabs Oral Bedtime (once a day),x90 [...] [facility] [employer]. No follow up information was provided. Extracted [...] Orders Ordered Office Visit Level 5 Est 77807: Paring/Cutting Hypkeratotic Lesion, Single 72051: Prescriptions Prescribed Januvia 50 mg oral tablet: [...] Comment: Ordered: Office Visit Level 5 Est 71824; 03/06/15 11:21:00 CDT, Foot callus | Diabetic foot ulcer associated with type 2 diabetes mellitus | Controlled type 2 diabetes mellitus without com plication | Hyperlipidemia | CKD (chronic kidney disease) stage 3, GFR 30-59 ml /min Diagnosis: Controlled type 2 diabetes mellitus without complication Comment: Ordered: Office Visit Level 5 Est 73426; 03/06/15 11:21:00 CDT, Foot callus | Diabetic foot ulcer associated with type 2 diabetes mellitus | Controlled type 2 diabetes mellitus without com plication | Hyperlipidemia | CKD (chronic kidney disease) stage 3, GFR 30-59 ml /min Diagnosis: Diabetic foot ulcer associated with type 2 diabetes mellitus Comment: Ordered: Paring/Cutting Hypkeratotic Lesion, Single 72620; 11:21:00 CDT, 1, Foot callus | Diabetic foot ulcer associated with type 2 diabetes mellitus Office Visit Level 5 Est 47199; 03/06/15 11:21:00 CDT, Foot callus | Diabetic foot ulcer associated with type 2 diabetes mellitus | Controlled type 2 diabetes mellitus witho ut complication | Hyperlipidemia | CKD (chronic kidney disease) stage 3, GFR 30 -59 ml/min Diagnosis: Foot callus Comment: Ordered: Paring/Cutting Hypkeratotic Lesion, Single 51907; 11:21:00 CDT, 1, Foot callus | Diabetic foot ulcer associated with type 2 diabetes mellitus Office Visit Level 5 Est 55906; 03/06/15 11:21:00 CDT, Foot callus | Diabetic foot ulcer associated with type 2 diabetes mellitus | Controlled type 2 diabetes mellitus witho ut complication | Hyperlipidemia | CKD (chronic kidney disease) stage 3, GFR 30 -59 ml/min Diagnosis: Hyperlipidemia Comment: Ordered: Office Visit Level 5 Est 26769; 03/06/15 11:21:00 CDT, Foot callus | Diabetic foot ulcer associated with type 2 diabetes mellitus | Controlled type 2 diabetes mellitus without com plication | Hyperlipidemia | CKD (chronic kidney disease) stage 3, GFR 30-59 ml /min Diagnosis: Hypertension Comment: Ordered: Office Visit Level 5 Est 79893; 03/06/15 11:21:00 CDT, Foot callus | Diabetic foot ulcer associated with type 2 diabetes mellitus | Controlled type 2 diabetes mellitus without com plication | Hyperlipidemia | CKD (chronic kidney disease) stage 3, GFR 30-59 ml /min Diagnosis: Lymphedema Comment: Ordered: Office Visit Level 5 Est 20503; 03/06/15 11:21:00 CDT, Foot callus | Diabetic foot ulcer associated with type 2 diabetes mellitus | Controlled type 2 diabetes mellitus without com plication | Hyperlipidemia | CKD (chronic kidney disease) stage 3, GFR 30-59 ml /min Diagnosis: Venous stasis dermatitis Comment: Ordered: Office Visit Level 5 Est 87751; 03/06/15 11:21:00 CDT, Foot callus | Diabetic foot ulcer associated with type 2 diabetes mellitus | Controlled type 2 diabetes mellitus without com plication | Hyperlipidemia | CKD (chronic kidney disease) stage 3, GFR 30-59 ml /min Additional Orders: Comment: Ordered: Januvia 50 mg oral tablet,1 tabs, Oral, Daily, # 30 tabs , 3 Refill(s), Pharmacy: [facility] #[id number] Ordered: Lasix 40 mg oral tablet,1 tabs, Oral, Daily, # 90 tabs, 3 Refill(s), Pharmacy: [facility] #[id number], 1 tabs Oral Daily,x90 days Ordered: Zantac 300 oral tablet,1 tabs, Oral, Bedtime (once a day) , # 90 tabs, 3 Refill(s), Pharmacy: [facility] #[id number], 1 tabs Oral Bedtime (once a day),x90 days Ordered: lisinopril 5 mg oral tablet,1 tabs, Oral, Daily, # 90 tabs, 3 Refill(s), Pharmacy: [facility] #[id number], 1 tabs Oral Daily Ordered: simvastatin 20 mg oral tablet,1 tabs, Oral, Bedtime ( once a day), # 90 tabs, 3 Refill(s), Pharmacy: [facility] #[id number], 1 tabs Oral Bedtime (once a day),x90 days End of Orders ."
--- OUTSIDE RECORDS SUMMARY | 2017-11-03 13:02 | External Medical Summary | Referral Summary ---
:1925 Author Organization [facility] [address] [place] [id number] Care Team Providers Name Role Phone Harry Guillen Primary Care Physician Encounter [facility] [phone] Date(s): 12/09/16 - 12/09/16 [facility] [address] [place] [phone] Discharge Diagnosis: Blood loss anemia Discharge Diagnosis: Bilateral pleural effusion Discharge Diagnosis: Mixed hyperlipidemia Discharge Diagnosis: Decubitus ulcer of sacral region, stage 1 Discharge Diagnosis: CKD (chronic kidney disease) stage 3, GFR 30-59 ml/min Discharge Diagnosis: Mild protein-calorie malnutrition Discharge Diagnosis: Diarrhea Discharge Diagnosis: Nocturnal hypoxemia Discharge Diagnosis: Adult hypothyroidism Discharge Diagnosis: Weakness Discharge Diagnosis: ARF (acute renal failure) Discharge Diagnosis: Fever Discharge Diagnosis: Oropharyngeal dysphagia Discharge Diagnosis: Sepsis Discharge Diagnosis: Acute bronchitis Discharge Diagnosis: Type 2 diabetes mellitus, uncontrolled Discharge Disposition: 01-Home or Self Care Attending Physician: Harry Guillen MD Admitting Physician: Harry Guillen MD Vital Signs Most recent to oldest [Reference Range]: 1 Temperature Tympanic [36.6-38.1 degC] 37.5 degC (12/09/16 1:09 PM) Peripheral Pulse Rate [60-100 bpm] 84 bpm (12/09/16 1:09 PM) Blood Pressure [90-140/60-90 mmHg] 92/44 mmHg (12/09/16 1:09 PM) SpO2 97 % (12/09/16 1:09 PM) Problem List Condition Effective Dates Status [...] initiation of Impaired Skin Integrity Plan of [id number] added automatically by system based on initiation of Knowledge Deficit Plan of [id number]? Allergies, Adverse Reactions, Alerts Substance Reaction Severity Status amoxicillin acute interstitial nephritis Active Bee Stings Active vancomycin rash, itching Active Medications acetaminophen 160 mg/5 mL oral liquid 640 mg 20 mL, G-Tube, q4hr, as needed for pain, 0 Refill(s) Start Date: 11/12/16 Status: Orderedamiodarone 200 mg oral tablet 200 mg 1 tabs, G-Tube, Daily, 0 Refill(s) Start Date: 10/28/16 Status: OrderedBenadryl 25 mg oral tablet 25 mg 1 tabs, G-Tube, Bedtime (once a day), as needed for insomnia, 0 Refill(s) Start Date: 10/28/16 Status: OrderedEliquis 5 mg oral tablet 5 mg 1 tabs, G-Tube, BID, # 60 tabs, 0 Refill(s) Start Date: 11/12/16 Status: Orderedferrous sulfate 220 mg, G-Tube, Daily, 0 Refill(s) Start Date: 04/19/14 Status: Orderedfolic acid 1 mg oral tablet 1 mg 1 tabs, G-Tube, Daily, 0 Refill(s) Start Date: 11/12/16 Status: OrderedHome Oxygen (DME) DME Item 2L/NC to keep O2 sats > 90%, See Instructions, # 1 Each, 0 Refill(s) , Supply Start Date: 11/12/16 Status: Orderedipratropium-albuterol 0.5 mg-2.5 mg/3 mLinhalation solution 3 mL, NEB, QID, and Q 4 hours as needed for SOB and wheezing, # 270 mL, 3 Refill (s), other reason (Rx) Start Date: 11/20/16 Status: OrderedLantus 100 units/mL subcutaneous solution 10 units, SubCutaneous, Bedtime (once a day), 0 Refill(s) Start Date: 11/12/16 Status: Orderedlevothyroxine 50 mcg (0.05 mg) oral tablet 50 mcg 1 tabs, G-Tube, Daily, 0 Refill(s) Start Date: 11/13/16 Status: Orderedlisinopril 5 mg oral tablet 2.5 mg 0.5 tabs, G-Tube, Daily, # 30 tabs, 3 Refill(s), other reason (Rx) Start Date: 11/20/16 Status: OrderedmetroNIDAZOLE 500 mg oral tablet 500 [...] Status: OrderedNorco 7.5 mg-325 mg oral tablet 10 mL, G-Tube, q6hr, as needed for pain, 0 Refill(s) Start Date: 11/12/16 Status: Orderedpyridoxine 100 mg oral tablet 100 mg 1 tabs, G-Tube, Daily, 0 Refill(s) Start Date: 11/12/16 Status: Orderedranitidine 15 mg/mL oral syrup 300 mg 20 mL, G-Tube, Bedtime (once a day), # 600 mL, 5 Refill(s), Pharmacy: [facility], 20 mL G-Tube Bedtime (once a day) Start Date: 11/21/16 Status: Orderedthiamine 100 mg oral tablet 100 mg 1 tabs, G-Tube, Daily, 0 Refill(s) Start Date: 11/12/16 Status: Orderedtimolol 0.25% ophthalmic solution 1 drops, Eye-Right, BID, prescribed elsewhere, 0 Refill(s) Start Date: [...] oldest [Reference Range]: 1 WBC [5.0-10.0 10*3/uL] 12.3 10*3/uL *HI* (12/09/16 1:26 PM) RBC [3.70-5.20] 3.54 *LOW* (12/09/16 1:26 PM) Hgb [12.0-16.0 gm/dL] 10.9 gm/dL *LOW* (12/09/16 1:26 PM) Hct [40.0-54.0 %] 35.2 % *LOW* (12/09/16 1:26 PM) MCV [80.0-96.0 fL] 99.4 fL *HI* (12/09/16 1:26 PM) MCH [26.0-34.0 pg] 30.8 pg (12/09/16 1:26 PM) MCHC [32.0-36.0 gm/dL] 31.0 gm/dL *LOW* (12/09/16 1:26 PM) RDW [0.0-14.5 %] 14.2 % (12/09/16 1:26 PM) Platelet [150-400 10*3/uL] 299 10*3/uL (12/09/16 1:26 PM) MPV [8.8-14.8 fL] 10.8 fL (12/09/16 1:26 PM) Neutrophils [50-70 %] 51 % (12/09/16 1:26 PM) Band Man [0-6 %] 20 % *HI* (12/09/16 1:26 PM) [place] Man [0-1 %] 1 % (12/09/16 1:26 PM) Lymphocytes [20-40 %] 13 % *LOW* (12/09/16 1:26 PM) Abn Lymph Man [-1-0 %] 1 % *HI* (12/09/16 1:26 PM) Monocytes [4-8 %] 12 % *HI* (12/09/16 1:26 PM) Eosinophils [0-6 %] 1 % (12/09/16 1:26 PM) Basophils [0-2 %] 1 % (12/09/16 1:26 PM) Neutro Absolute [2.50-7.00] 8.73 *HI* (12/09/16 1:26 PM) Lymph Absolute [1.00-4.00] 1.72 (12/09/16 1:26 PM) Deuel Absolute [0.20-0.80] 1.48 *HI* (12/09/16 1:26 PM) Eos Absolute [0.00-0.60] 0.12 (12/09/16 1:26 PM) Baso Absolute [0.00-0.30] 0.12 (12/09/16 1:26 PM) Ovalocytes Occasional *ABN* (12/09/16 1:26 PM) Differential Manual *ABN* (12/09/16 1:26 PM) Chemistry Most recent to oldest [Reference Range]: 1 Magnesium Lvl [1.6-2.6 mg/dL] 2.6 mg/dL (12/09/16 1:26 PM) Phosphorus [2.3-4.7 mg/dL] 3.4 mg/dL (12/09/16 1:26 PM) Prealbumin [16-42 mg/dL] 10 mg/dL *LOW* (12/09/16 1:26 PM) Sodium Venous [136-144 mmol/L] 136 mmol/L (12/09/16 1:26 PM) Potassium Venous [3.6-5.1 mmol/L] 4.7 mmol/L 1 (12/09/16 1:26 PM) Calcium Ionized Venous [1.19-1.41 mmol/L] 1.14 mmol/L *LOW* (12/09/16 1:26 PM) Total CO2 Venous [25-29 mmol/L] 24 mmol/L *LOW* (12/09/16 1:26 PM) Glucose Venous [70-100 mg/dL] 239 mg/dL *HI* (12/09/16 1:26 PM) BUN Venous [4-20] 61 *HI* (12/09/16 1:26 PM) Creatinine Venous [0.7-1.2 mg/dL] 1.6 mg/dL *HI* (12/09/16 1:26 PM) Venous CL [99-109 mmol/L] 100 mmol/L (12/09/16 1:26 PM) 1Result Comment: This test was performed on [...] Patient Education Author: Harry Guillen MD Date: 12/09/16 Nephrology Acute Kidney Injury Acute kidney injury is any condition in which there is sudden (acute) damage to the kidneys. Acute kidney injury was previously known as acute kidney failure or acute renal failure. The kidneys are two organs that lie on either side of the spine between the middle of the back and the front of the abdomen. The kidneys: Remove wastes and extra water from the blood. Produce important hormones. These help keep bones strong, regulate blood pressure, and help create red blood cells. Balance the fluids and chemicals in the blood and tissues. A small amount of kidney damage may not cause problems, but a large amount of damage may make it difficult or impossible for the kidneys to work the way they should. Acute kidney injury may develop into long-lasting (chronic) kidney disease. It may also develop into a life- threatening disease called end-stage kidney disease. Acute kidney injury can get worse very quickly, so it should be treated right away. Early treatment may prevent other kidney diseases from developing. CAUSES A problem with blood flow to the kidneys. This may be caused by: Blood loss. Heart disease. Severe tanner. Liver disease. Direct damage to the kidneys. This may be caused by: Some medicines. A kidney infection. Poisoning or consuming toxic substances. A surgical wound. A blow to the kidney area. A problem with urine flow. This may be caused by: Cancer. Kidney stones. An enlarged prostate. SIGNS AND SYMPTOMS Swelling (edema) of the legs, ankles, or feet. Tiredness (lethargy). Nausea or vomiting. Confusion. Problems with urination, such as: Painful or burning feeling during urination. Decreased urine production. Frequent accidents in children who are potty trained. Bloody urine. Muscle twitches and cramps. Shortness of breath. Seizures. Chest pain or pressure. Sometimes, no symptoms are present. DIAGNOSIS Acute kidney injury may be detected and diagnosed by tests, including blood, urine, imaging, or kidney biopsy tests. TREATMENT Treatment of acute kidney injury varies depending on the cause and severity of the kidney damage. In mild cases, no treatment may be needed. The kidneys may heal on their own. If acute kidney injury is more severe, your health care provider will treat the cause of the kidney damage, help the kidneys heal, and prevent complications from occurring. Severe cases may require a procedure to remove toxic wa stes from the body (dialysis) or surgery to repair kidney damage. Surgery may involve: Repair of a torn kidney. Removal of an obstruction. HOME CARE INSTRUCTIONS Follow your prescribed diet. Take medicines only as directed by your health care provider. Do not take any new medicines (prescription, synn-pod-thqiift, or nutritional supplements) unless approved by your health care provider. Many medicines can worsen your kidney damage or may need to have the dose adjusted. Keep all follow-up visits as directed by your health care provider. This is important. Observe your condition to make sure you are healing as expected. SEEK IMMEDIATE MEDICAL CARE IF: You are feeling ill or have severe pain in the back or side. Your symptoms return or you have new symptoms. You have any symptoms of end-stage kidney disease. These include: Persistent itchiness. Loss of appetite. Headaches. Abnormally dark or light skin. Numbness in the hands or feet. Easy bruising. Frequent hiccups. Menstruation stops. You have a fever. You have increased urine production. You have pain or bleeding when urinating. MAKE SURE YOU: Understand these instructions. Will watch your condition. Will get help right away if you are not doing well or get worse. This information is not intended to replace advice given to you by your health care provider. Make sure you discuss any questions you have with your health care provider. Document Released: 04/26/2012 Document Revised: 11/02/2015 Document Reviewed: 06/10/2013 [employer] Interactive Patient Education 2016 [employer] No follow up information was provided. Extracted from: Title: multiple problems--sepsis and ARF Author: Harry Guillen MD Date: Impression and Plan Diagnosis Oropharyngeal dysphagia (VVO23-ZM R13.12, Discharge, Medical). Decubitus ulcer of sacral region, stage 1 (XYA13-DD L89.151, Discharge, Medical ). Type 2 diabetes mellitus, uncontrolled (LGW89-AU E11.65, Discharge, Medical). CKD (chronic kidney disease) stage 3, GFR 30-59 ml/min (KBF33-BS N18.3, Discharge, Medical). Nocturnal hypoxemia (OAA80-WK G47.34, Discharge, Medical). Bilateral pleural effusion (KHZ98-GR J90, Discharge, Medical). Weakness (KVL01-RZ R53.1, Discharge, Medical). Blood loss anemia (DCT43-HL D50.0, Discharge, Medical). Mixed hyperlipidemia (GVK03-PY E78.2, Discharge, Medical). Adult hypothyroidism (LNO39-CC E03.9, Discharge, Medical). Diarrhea (RUA55-XQ R19.7, Discharge, Medical). Mild protein-calorie malnutrition (NZQ18-NK E44.1, Discharge, Medical). Acute bronchitis (BLG41-AW J20.9, Discharge, Medical). Fever (HQJ40-WK R50.9, Discharge, Medical). Sepsis (NVW69-EO A41.9, Discharge, Medical). ARF (acute renal failure) (YDU36-MF N17.9, Discharge, Medical). Plan: 1) CXR and lab ordered today. Marked abnormalities noted. 2) I spoke with Dr. De Los Santos, who accepted admission to the hospital for sepsis.. Orders Orders (Selected) Outpatient Orders Ordered Magnesium Level: Office Visit Level 5 Est 23540: Phosphorus Level: Prealbumin: Ordered (Exam Completed) Chest XR 2 Views: Completed CBC w/ Differential: Influenza A/B: Metabolic Panel i-STAT: . Dx/Order Association Plan: Diagnosis: ARF (acute renal failure) Comment: Diagnosis: Acute bronchitis Comment: Ordered: Office Visit Level 5 Est 60643; 12/09/16 13:16:00 BASS SINGER, Acute bronchitis | Fever | Mild protein-calorie malnutrition | Weakness | Type 2 diabetes mellitus, uncontrolled | Oropharyn geal dysphagia | Nocturnal hypoxemia | Mixed hyperlipidemia | Diarrhea | Decubitus ulcer of sacral regio... Other status: Influenza A/B; Nasopharyngeal Swab, Stat collect, 12/09/16 13:21:00 BASS SINGER, Once, Stop date 12/09/16 13:21:00 BASS SINGER, Nurse Collect Non- Blood, Acute bronchitis | Fever (Completed) Chest XR 2 Views; 12/09/16 13:15:00 BASS SINGER, Routine, Stop date 12/09/16 13:15:00 BASS SINGER, Reason: Cough, Transport Mode: Patient Bed, Patient has IV, Patient on O2, Bilatera l pleural effusion | Acute bronchitis | Fever, ABN Status: Not Required ( Status Change) Diagnosis: Adult hypothyroidism Comment: Diagnosis: Bilateral pleural effusion Comment: Other status: CBC w/ Differential; Blood, Stat Collect, 12/09/16 13:21:00 BASS SINGER, Once, Stop date 12/09/16 13:21:00 BASS SINGER, Lab Collect, Blood loss anemia | Bilateral pleural effusion (Completed) Chest XR 2 Views; 12/09/16 13:15:00 BASS SINGER, Routine, Stop date 12/09/16 13:15:00 BASS SINGER, Reason: Cough, Transport Mode: Patient Bed, Patient has IV, Patient on O2, Bilatera l pleural effusion | Acute bronchitis | Fever, ABN Status: Not Required ( Status Change) Diagnosis: Blood loss anemia Comment: Ordered: Office Visit Level 5 Est 44803; 12/09/16 13:16:00 BASS SINGER, Acute bronchitis | Fever | Mild protein-calorie malnutrition | Weakness | Type 2 diabetes mellitus, uncontrolled | Oropharyn geal dysphagia | Nocturnal hypoxemia | Mixed hyperlipidemia | Diarrhea | Decubitus ulcer of sacral regio... Other status: CBC w/ Differential; Blood, Stat Collect, 12/09/16 13:21:00 BASS SINGER, Once, Stop date 12/09/16 13:21:00 BASS SINGER, Lab Collect, Blood loss anemia | Bilateral pleural effusion (Completed) Diagnosis: CKD (chronic kidney disease) stage 3, GFR 30-59 ml/min Comment: Ordered: Office Visit Level 5 Est [id number]; 12/09/16 13:16:00 BASS SINGER, Acute bronchitis | Fever | Mild protein-calorie malnutrition | Weakness | Type 2 diabetes mellitus, uncontrolled | Oropharyn geal dysphagia | Nocturnal hypoxemia | Mixed hyperlipidemia | Diarrhea | Decubitus ulcer of sacral regio... Other status: Metabolic Panel i-STAT; Blood, Stat Collect, 13:21:00 BASS SINGER, Once, Stop date 12/09/16 13:21:00 BASS SINGER, Lab Collect, Weakness | CKD (chronic kidney disease) stage 3, GFR 30-59 ml/min (Completed) Diagnosis: Decubitus ulcer of sacral region, stage 1 Comment: Ordered: Office Visit Level 5 Est [id number]; 12/09/16 13:16:00 BASS SINGER, Acute bronchitis | Fever | Mild protein-calorie malnutrition | Weakness | Type 2 diabetes mellitus, uncontrolled | Oropharyn geal dysphagia | Nocturnal hypoxemia | Mixed hyperlipidemia | Diarrhea | Decubitus ulcer of sacral regio... Diagnosis: Diarrhea Comment: Ordered: Office Visit Level 5 Est 84620; 12/09/16 13:16:00 BASS SINGER, Acute bronchitis | Fever | Mild protein-calorie malnutrition | Weakness | Type 2 diabetes mellitus, uncontrolled | Oropharyn geal dysphagia | Nocturnal hypoxemia | Mixed hyperlipidemia | Diarrhea | Decubitus ulcer of sacral regio... Diagnosis: Fever Comment: Ordered: Office Visit Level 5 Est [id number]; 12/09/16 13:16:00 BASS SINGER, Acute bronchitis | Fever | Mild protein-calorie malnutrition | Weakness | Type 2 diabetes mellitus, uncontrolled | Oropharyn geal dysphagia | Nocturnal hypoxemia | Mixed hyperlipidemia | Diarrhea | Decubitus ulcer of sacral regio... Other status: Influenza A/B; Nasopharyngeal Swab, Stat collect, 12/09/16 13:21:00 BASS SINGER, Once, Stop date 12/09/16 13:21:00 BASS SINGER, Nurse Collect Non- Blood, Acute bronchitis | Fever (Completed) Chest XR 2 Views; 12/09/16 13:15:00 BASS SINGER, Routine, Stop date 12/09/16 13:15:00 BASS SINGER, Reason: Cough, Transport Mode: Patient Bed, Patient has IV, Patient on O2, Bilatera l pleural effusion | Acute bronchitis | Fever, ABN Status: Not Required ( Status Change) Diagnosis: Mild protein-calorie malnutrition Comment: Ordered: Prealbumin; Blood, Routine Collect, 12/09/16 13:21:00 BASS SINGER, Once, Stop date 12/09/16 13:21:00 BASS SINGER, Lab Collect, Mild protein-calorie malnutrition Magnesium Level; Blood, Routine Collect, 12/09/16 13:21:00 BASS SINGER, Once, Stop date 12/09/16 13:21:00 BASS SINGER, Lab Collect, Mild protein- calorie malnutrition | Weakness Phosphorus Level; Blood, Routine Collect, 13:21:00 BASS SINGER, Once, Stop date 12/09/16 13:21:00 BASS SINGER, Lab Collect, Mild protein-calorie malnutrition | Weakness Office Visit Level 5 Est 45646; 12/09/16 13:16:00 BASS SINGER, Acute bronchitis | Fever | Mild protein-calorie malnutrition | Weakness | Type 2 diabetes mellitus, uncontrolled | Bree pharyngeal dysphagia | Nocturnal hypoxemia | Mixed hyperlipidemia | Diarrhea | Decubitus ulcer of sacral regio... Diagnosis: Mixed hyperlipidemia Comment: Ordered: Office Visit Level 5 Est [id number]; 12/09/16 13:16:00 BASS SINGER, Acute bronchitis | Fever | Mild protein-calorie malnutrition | Weakness | Type 2 diabetes mellitus, uncontrolled | Oropharyn geal dysphagia | Nocturnal hypoxemia | Mixed hyperlipidemia | Diarrhea | Decubitus ulcer of sacral regio... Diagnosis: Nocturnal hypoxemia Comment: Ordered: Office Visit Level 5 Est 96869; 12/09/16 13:16:00 BASS SINGER, Acute bronchitis | Fever | Mild protein-calorie malnutrition | Weakness | Type 2 diabetes mellitus, uncontrolled | Oropharyn geal dysphagia | Nocturnal hypoxemia | Mixed hyperlipidemia | Diarrhea | Decubitus ulcer of sacral regio... Diagnosis: Oropharyngeal dysphagia Comment: Ordered: Office Visit Level 5 Est [id number]; 12/09/16 13:16:00 BASS SINGER, Acute bronchitis | Fever | Mild protein-calorie malnutrition | Weakness | Type 2 diabetes mellitus, uncontrolled | Oropharyn geal dysphagia | Nocturnal hypoxemia | Mixed hyperlipidemia | Diarrhea | Decubitus ulcer of sacral regio... Diagnosis: Sepsis Comment: Diagnosis: Type 2 diabetes mellitus, uncontrolled Comment: Ordered: Office Visit Level 5 Est 44303; 12/09/16 13:16:00 BASS SINGER, Acute bronchitis | Fever | Mild protein-calorie malnutrition | Weakness | Type 2 diabetes mellitus, uncontrolled | Oropharyn geal dysphagia | Nocturnal hypoxemia | Mixed hyperlipidemia | Diarrhea | Decubitus ulcer of sacral regio... Diagnosis: Weakness Comment: Ordered: Magnesium Level; Blood, Routine Collect, 12/09/16 13:21: 00 BASS SINGER, Once, Stop date 12/09/16 13:21:00 BASS SINGER, Lab Collect, Mild protein- calorie malnutrition | Weakness Phosphorus Level; Blood, Routine Collect, 13:21:00 BASS SINGER, Once, Stop date 12/09/16 13:21:00 BASS SINGER, Lab Collect, Mild protein-calorie malnutrition | Weakness Office Visit Level 5 Est 62227; 12/09/16 13:16:00 BASS SINGER, Acute bronchitis | Fever | Mild protein-calorie malnutrition | Weakness | Type 2 diabetes mellitus, uncontrolled | Bree pharyngeal dysphagia | Nocturnal hypoxemia | Mixed hyperlipidemia | Diarrhea | Decubitus ulcer of sacral regio... Other status: Metabolic Panel i-STAT; Blood, Stat Collect, 13:21:00 BASS SINGER, Once, Stop date 12/09/16 13:21:00 BASS SINGER, Lab Collect, Weakness | CKD (chronic kidney disease) stage 3, GFR 30-59 ml/min (Completed) End of Orders ."
--- OUTSIDE RECORDS SUMMARY | 2017-11-03 13:02 | External Medical Summary | Referral Summary ---
:1925 Author Organization [facility] [address] [place] [address] Care Team Providers Name Role Phone Harry Guillen Primary Care Physician Encounter VC Date(s): 09/09/16 - 09/09/16 [facility] [address] [place] [phone] Discharge Diagnosis: CKD (chronic kidney disease) stage 3, GFR 30-59 ml/min Discharge Diagnosis: Callus of foot Discharge Diagnosis: Hypertension Discharge Diagnosis: Need for influenza vaccination Discharge Diagnosis: Abnormal weight gain Discharge Diagnosis: Uncontrolled type 2 diabetes mellitus Discharge Diagnosis: Venous stasis dermatitis Discharge Diagnosis: Primary hypercholesterolemia Discharge Diagnosis: Lymphedema Discharge Disposition: 01-Home or Self Care Attending Physician: Harry Guillen MD Admitting Physician: Harry Guillen MD Vital Signs Most recent to oldest [Reference Range]: 1 Temperature Tympanic [36.6-38.1 degC] 37.0 degC (09/09/16 10:57 AM) Peripheral Pulse Rate [60-100 bpm] 80 bpm (09/09/16 10:57 AM) Respiratory Rate [14-20 br/min] 16 br/min (09/09/16 10:57 AM) Blood Pressure [90-140/60-90 mmHg] 144/68 mmHg *HI* (09/09/16 10:57 AM) Problem List Condition Effective Dates Status [...] type 2, Active uncontrolled(Confirmed) Weight loss(Confirmed) Active 12497? Allergies, Adverse Reactions, Alerts Substance Reaction Severity [...] , # 1 bottles, 3 Refill(s), Pharmacy: [facility] #[id number], Test blood sugars twice daily; Dx: E11.9 Start Date: 11/13/15 Status: Orderedfamotidine 20 mg oral tablet 20 mg 1 tabs, Oral, BID, as needed for itching, # 60 tabs, 11 Refill(s), Pharmacy: [facility] #[id number], 1 tabs Oral BID,PRN:as needed for itching Start Date: 05/06/16 Status: Orderedferrous sulfate 325 mg, Oral, BID, 0 Refill(s) Start Date: 04/19/14 Status: Orderedfolic acid 0.8 mg oral tablet 1 tabs, Oral, Daily, 0 Refill(s) Start Date: 04/19/14 Status: OrderedJanuvia 50 mg oral tablet 50 mg 1 tabs, Oral, Daily, X 90 days, # 90 tabs, 11 Refill(s), Pharmacy: [facility] #[id number] Start Date: 09/09/16 Stop Date: 08/25/19 Status: OrderedLasix 40 mg oral tablet 80 mg 2 tabs, Oral, Daily, # 180 tabs, 3 Refill(s), Pharmacy: [facility] # [id number], 2 tabs Oral Daily,x90 days Start Date: 09/09/16 Stop Date: 09/04/17 Status: Orderedlisinopril 5 mg oral tablet 5 mg 1 tabs, Oral, Daily, # 90 tabs, 3 Refill(s), Pharmacy: [facility] # [id number], 1 tabs Oral Daily Start Date: 09/09/16 Status: OrderedraNITIdine 300 mg oral tablet 300 mg 1 tabs, Oral, Bedtime (once a day), # 30 tabs, 0 Refill(s), Pharmacy: [facility] #[id number], 1 tabs Oral Bedtime (once a day) Start Date: 09/09/16 Status: Orderedsimvastatin 20 mg oral tablet 20 mg 1 tabs, Oral, Bedtime (once a day), # 90 tabs, 3 Refill(s), Pharmacy: [facility] #[id number], 1 tabs Oral Bedtime (once a day),x90 [...] oldest [Reference Range]: 1 WBC [4.8-10.8 10*3/uL] 7.3 10*3/uL (09/09/16 12:18 PM) RBC [4.60-6.20] 3.86 *LOW* (09/09/1618 PM) Hgb [14.0-18.0 gm/dL] 11.8 gm/dL *LOW* (09/09/16:18 PM) Hct [42.0-52.0 %] 37.0 % *LOW* (09/09/1618 PM) MCV [82.0-99.0 fL] 95.9 fL (09/09/16:18 PM) MCH [27.0-32.0 pg] 30.6 pg (09/09/16 PM) MCHC [32.0-36.0 gm/dL] 31.9 gm/dL *LOW* (09/09/16:18 PM) RDW [11.5-14.5 %] 11.8 % (09/09/16: PM) Platelet [150-400 10*3/uL] 241 10*3/uL (09/09/16:18 PM) MPV [8.8-14.8 fL] 10.7 fL (09/09/16:18 PM) Chemistry Most recent to oldest [Reference Range]: 1 Sodium Lvl [135-144 mEq/L] 143 mEq/L (09/09/16:18 PM) Potassium Lvl [3.5-5.2 mEq/L] 4.1 mEq/L (09/09/16: PM) Chloride [99-111 mEq/L] 110 mEq/L (09/09/16:18 PM) CO2 [23-31 mEq/L] 23 mEq/L (09/09/16:18 PM) AGAP [3-20] 10 (09/09/1618 PM) BUN [8-26 mg/dL] 27 mg/dL *HI* (09/09/16:18 PM) Glucose Lvl [70-99 mg/dL] 139 mg/dL *HI* (09/09/16:18 PM) Creatinine Lvl [0.72-1.25 mg/dL] 1.06 mg/dL (09/09/16 12:18 PM) eGFR [>60 mL/min] >60 mL/min 1 (09/09/16 12:18 PM) Calcium Lvl [8.9-10.5 mg/dL] 9.1 mg/dL (09/09/16 12:18 PM) Albumin Lvl [3.4-4.8 gm/dL] 4.1 gm/dL (09/09/16 12:18 PM) Total Protein [6.0-7.6 gm/dL] 6.9 gm/dL (09/09/16 12:18 PM) Globulin [1.8-4.0 gm/dL] 2.8 gm/dL (09/09/16 12:18 PM) ALT [0-55 U/L] 19 U/L (09/09/16 12:18 PM) AST [5-34 U/L] 16 U/L (09/09/16 12:18 PM) Alk Phos [40-150 U/L] 112 U/L (09/09/16 12:18 PM) Bili Total [0.2-1.2 mg/dL] 0.4 mg/dL (09/09/16 12:18 PM) BNP [0-99 pg/mL] 226 pg/mL *HI* (09/09/16 12:18 PM) Hgb A1c [4.1-5.6 %] 6.8 % *HI* (09/09/16 12:18 PM) eAvg Glucose 148.5 mg/dL (09/09/16 12:18 PM) 1Result Comment: Multiply eGFR results by 1.21 for race. Immunizations Vaccine Date Refusal Reason influenza virus vaccine, inactivated 09/09/16 influenza virus vaccine, inactivated1 08/08/14 influenza virus vaccine, live 07/27/13 influenza virus vaccine, live 08/12/12 pneumococcal 13-valent conjugate vaccine 12/08/14 pneumococcal 23-polyvalent vaccine 05/06/06 pneumococcal 23-polyvalent vaccine 03/27/99 tetanus-diphth toxoids (Td) adult/adol 04/13/07 tetanus-diphth toxoids (Td) adult/adol 03/31/97 zoster vaccine live 07/24/09 1Result Comment: [08/08/2014] See scanned document Procedures Procedure Date Related Diagnosis Body Site Paring or cutting of benign hyperkeratotic 09/09/16 lesion (eg, corn or callus); single lesion Colonoscopy [...] Patient Education Author: Harry Guillen MD Date: Allergy Edema Edema is an abnormal buildup [...] care provider. Document Released: 10/12/2006 Document Revised: 11/02/2015 Document Reviewed: 08/04/2014 [employer] Patient Education 2016 [employer] Procedures Lymphedema Lymphedema is swelling that is caused by the abnormal collection of lymph under the skin. Lymph is fluid from the tissues in your body that travels in the lymphatic system. This system is part of the im mune system and includes lymph nodes and lymph vessels. The lymph vessels collect and carry the excess fluid, fats, proteins, and wastes from the tissues of the body to the bloodstream. This system also works to clean and remove bacteria and waste products from the body. Lymphedema occurs when the lymphatic system is blocked. When the lymph vessels or lymph nodes are blocked or damaged, lymph does not drain properly, causing an abnormal buildup of lymph. This leads to s welling in the arms or legs. Lymphedema cannot be cured by medicines, but various methods can be used to help reduce the swelling. CAUSES There are two types of lymphedema. Primary lymphedema is caused by the absence or abnormality of the lymph vessel at . Secondary lymphedema is more common. It occurs when the lymph vessel is damage d or blocked. Common causes of lymph vessel blockage include: Skin infection, such as cellulitis. Infection by parasites (filariasis). Injury. Cancer. Radiation therapy. Formation of scar tissue. Surgery. SYMPTOMS Symptoms of this condition include: Swelling of the arm or leg. A heavy or tight feeling in the arm or leg. Swelling of the feet, toes, or fingers. Shoes or rings may fit more tightly than before. Redness of the skin over the affected area. Limited movement of the affected limb. Sensitivity to touch or discomfort in the affected limb. DIAGNOSIS This condition may be diagnosed with: A physical exam. Medical history. Imaging tests, such as: Lymphoscintigraphy. In this test, a low dose of a radioactive substance is injected to trace the flow of lymph through the lymph vessels. MRI. CT scan. Duplex ultrasound. This test uses sound waves to produce images of the vessels and the blood flow on a screen. Lymphangiography. In this test, a contrast dye is injected into the lymph vessel to help show blockages. TREATMENT Treatment for this condition may depend on the cause. Treatment may include: Exercise. Certain exercises can help fluid move out of the affected limb. Massage. Gentle massage of the affected limb can help move the fluid out of the area. Compression. Various methods may be used to apply pressure to the affected limb in order to reduce the swelling. Wearing compression stockings or sleeves on the affected limb. Bandaging the affected limb. Using an external pump that is attached to a sleeve that alternates between applying pressure and releasing pressure. Surgery. This is usually only done for severe cases. For example, surgery may be done if you have trouble moving the limb or if the swelling does not get better with other treatments. If an underlying condition is causing the lymphedema, treatment for that condition is needed. For example, antibiotic medicines may be used to treat an infection. HOME CARE INSTRUCTIONS Activities Exercise regularly as directed by your health care provider. Do not sit with your legs crossed. When possible, keep the affected limb raised (elevated) above the level of your heart. Avoid carrying things with an arm that is affected by lymphedema. Remember that the affected area is more likely to become injured or infected. Take these steps to help prevent infection: Keep the affected area clean and dry. Protect your skin from cuts. For example, you should use gloves while cooking or gardening. Do not walk barefoot. If you shave the affected area, use an electric razor. General Instructions Take medicines only as directed by your health care provider. Eat a healthy diet that includes a lot of fruits and vegetables. Do not wear tight clothes, shoes, or jewelry. Do not use heating pads over the affected area. Avoid having blood pressure checked on the affected limb. Keep all follow-up visits as directed by your health care provider. This is important. SEEK MEDICAL CARE IF: You continue to have swelling in your limb. You have a fever. You have a cut that does not heal. You have redness or pain in the affected area. You have new swelling in your limb that comes on suddenly. You develop purplish spots or sores (lesions) on your limb. SEEK IMMEDIATE MEDICAL CARE IF: You have a skin rash. You have chills or sweats. You have shortness of breath. This information is not intended to replace advice given to you by your health care provider. Make sure you discuss any questions you have with your health care provider. Document Released: 08/08/2008 Document Revised: 02/26/2016 Document Reviewed: 09/19/2015 [employer] Interactive Patient Education 2016 [employer] No follow up information was provided. Extracted from: Title: Male HTN, and other problems Author: Harry Guillen MD Date: Impression and Plan Diagnosis Abnormal weight gain (OXI33-LT R63.5, Discharge, Medical). Callus of foot (VEU81-RM L84, Discharge, Medical). CKD (chronic kidney disease) stage 3, GFR 30-59 ml/min (CEK61-DZ N18.3, Discharge, Medical). Hypertension (NBB01-YE I10, Discharge, Medical). Lymphedema (UMV48-WT I89.0, Discharge, Medical). Need for influenza vaccination (RUQ16-DK Z23, Working, Medical). Need for influenza vaccination (UKE42-LF Z23, Discharge, Medical). Primary hypercholesterolemia (GMC19-RK E78.00, Discharge, Medical). Uncontrolled type 2 diabetes mellitus (GYU86-VI E11.65, Discharge, Medical). Venous stasis dermatitis (WJW88-SH I87.2, Discharge, Medical). Plan: 1) The left foot callus was trimmed manually with a #15 scalpel blade overlying the left first MTH. 2) Increase your furosemide to 2 tabs daily (water pill). 3) Continue your other meds the same. 4) Lab and chest xray ordered today. 5) See me in one month and as needed. 6) Flu shot given today. 7) The patient resists the use of compression rigo wraps on his legs again-- insisting on a stronger water pill. . Orders Orders (Selected) Outpatient Orders Ordered Office Visit Level 4 Est 46428: Paring/Cutting Hypkeratotic Lesion, Single 93708: influenza virus vaccine, inactivated: 0.5 mL, IntraMuscular, Once Future (On Hold) BNP: CBC: CMP: Hgb A1c: XR Chest 2 Views: . 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 Diagnosis: Callus of foot Comment: Ordered: Paring/Cutting Hypkeratotic Lesion, Single 97258; 11:28:00 CAPSULE MACHINE OPERATOR, 1, Callus of foot Diagnosis: Hypertension Comment: Ordered: Office Visit Level 4 Est 04394; 09/09/16 11:34:00 CAPSULE MACHINE OPERATOR, 25, Lymphedema | Venous stasis dermatitis | Uncontrolled type 2 diabetes mellitus | Hypertension | CKD (chronic kidney disea se) stage 3, GFR 30-59 ml/min | Primary hypercholesterolemia | Abnormal weight gain | Need for influenza... Diagnosis: Lymphedema Comment: Ordered: Office Visit Level 4 Est 46845; 09/09/16 11:34:00 CAPSULE MACHINE OPERATOR, 25, Lymphedema | Venous stasis dermatitis | Uncontrolled type 2 diabetes mellitus | Hypertension | CKD (chronic kidney disea se) stage 3, GFR 30-59 ml/min | Primary hypercholesterolemia | Abnormal weight gain | Need for influenza... Diagnosis: Need for influenza vaccination Comment: Ordered: Office Visit Level 4 Est 49856; 09/09/16 11:34:00 CAPSULE MACHINE OPERATOR, 25, Lymphedema | Venous stasis dermatitis | Uncontrolled type 2 diabetes mellitus | Hypertension | CKD (chronic kidney disea se) stage 3, GFR 30-59 ml/min | Primary hypercholesterolemia | Abnormal weight gain | Need for influenza... Diagnosis: Need for influenza vaccination Comment: Diagnosis: Primary hypercholesterolemia Comment: Ordered: Office Visit Level 4 Est [id number]; 09/09/16 11:34:00 CAPSULE MACHINE OPERATOR, 25, Lymphedema | Venous stasis dermatitis | Uncontrolled type 2 diabetes mellitus | Hypertension | CKD (chronic kidney disea se) stage 3, GFR 30-59 ml/min | Primary hypercholesterolemia | Abnormal weight gain | Need for influenza... Diagnosis: Uncontrolled type 2 diabetes mellitus Comment: Ordered: Office Visit Level 4 Est [id number]; 09/09/16 11:34:00 CAPSULE MACHINE OPERATOR, 25, Lymphedema | Venous stasis dermatitis | Uncontrolled type 2 diabetes mellitus | Hypertension | CKD (chronic kidney disea se) stage 3, GFR 30-59 ml/min | Primary hypercholesterolemia | Abnormal weight gain | Need for influenza... Diagnosis: Venous stasis dermatitis Comment: Ordered: Office Visit Level 4 Est 09748; 09/09/16 11:34:00 CAPSULE MACHINE OPERATOR, 25, Lymphedema | Venous stasis dermatitis | Uncontrolled type 2 diabetes mellitus | Hypertension | CKD (chronic kidney disea se) stage 3, GFR 30-59 ml/min | Primary hypercholesterolemia | Abnormal weight gain | Need for influenza... Diagnosis: Uncontrolled type 2 diabetes mellitus Comment: Diagnosis: Lymphedema Comment: Diagnosis: Uncontrolled type 2 diabetes mellitus Comment: Diagnosis: Primary hypercholesterolemia Comment: Diagnosis: CKD (chronic kidney disease) stage 3, GFR 30-59 ml/min Comment: Diagnosis: Hypertension Comment: Diagnosis: Venous stasis dermatitis Comment: Diagnosis: Lymphedema Comment: Diagnosis: Hypertension Comment: Diagnosis: Lymphedema Comment: End of Orders ."
--- OUTSIDE RECORDS SUMMARY | 2017-11-03 13:02 | External Medical Summary | Referral Summary ---
:1925 Author [facility] Address [address] [place] [address] [place] [address] Care Team Providers Name Role Phone Harry Guillen Primary Care Physician Encounter VC Date(s): 03/06/15 - 03/06/15 [facility] [address] [place] [phone] Discharge Disposition: [...] type 2, Active uncontrolled(Confirmed) Weight loss(Confirmed) Active 87167? Allergies, Adverse Reactions, Alerts Substance Reaction Severity Status amoxicillin acute interstitial nephritis Active Bee Stings Active vancomycin rash, itching Active Medications Aspirin Low Dose 81 mg, Oral, Daily, 0 Refill(s) Start Date: 04/19/14 Status: Orderedfamotidine 20 mg oral tablet 20 mg 1 tabs, Oral, BID, as needed for itching, # 60 tabs, 5 Refill(s), Pharmacy : [facility] #[id number], 1 tabs Oral BID,PRN:as needed for itching Start Date: 05/01/15 Status: Orderedferrous sulfate 325 mg, Oral, BID, 0 Refill(s) Start Date: 04/19/14 Status: Orderedfolic acid 0.8 mg oral tablet 1 tabs, Oral, Daily, 0 Refill(s) Start Date: 04/19/14 Status: OrderedJanuvia 50 mg oral tablet See Instructions, TAKE ONE TABLET BY MOUTH DAILY, # 30 tabs, 2 Refill(s), eRx: [facility] #[id number], TAKE ONE TABLET BY MOUTH DAILY Start Date: 08/16/15 Status: OrderedLasix 40 mg oral tablet 1 tabs, Oral, Daily, # 90 tabs, 3 Refill(s), Pharmacy: [facility] #[id number] , 1 tabs Oral Daily,x90 days Start Date: 03/06/15 Stop Date: 02/29/16 Status: Orderedlisinopril 5 mg oral tablet 1 tabs, Oral, Daily, # 90 tabs, 3 Refill(s), Pharmacy: [facility] #[id number] , 1 tabs Oral Daily Start Date: 03/06/15 Status: Orderedsimvastatin 20 mg oral tablet 1 tabs, Oral, Bedtime (once a day), # 90 tabs, 3 Refill(s), Pharmacy: [facility] #[id number], 1 tabs Oral Bedtime (once a day),x90 [...] day), # 90 tabs, 3 Refill(s), Pharmacy: [facility] #[id number], 1 tabs Oral Bedtime (once a day),x90 [...] 07/18/2005 Document Revised: 01/03/2013 Document Reviewed: 06/08/2012 [facility] 2014 [employer]. No follow up information was provided. Extracted [...] Orders Ordered Office Visit Level 5 Est 64568: Paring/Cutting Hypkeratotic Lesion, Single 31851: Prescriptions Prescribed Januvia 50 mg oral tablet: [...] Comment: Ordered: Office Visit Level 5 Est 91488; 03/06/15 11:21:00 CDT, Foot callus | Diabetic foot ulcer associated with type 2 diabetes mellitus | Controlled type 2 diabetes mellitus without com plication | Hyperlipidemia | CKD (chronic kidney disease) stage 3, GFR 30-59 ml /min Diagnosis: Controlled type 2 diabetes mellitus without complication Comment: Ordered: Office Visit Level 5 Est 88819; 03/06/15 11:21:00 CDT, Foot callus | Diabetic foot ulcer associated with type 2 diabetes mellitus | Controlled type 2 diabetes mellitus without com plication | Hyperlipidemia | CKD (chronic kidney disease) stage 3, GFR 30-59 ml /min Diagnosis: Diabetic foot ulcer associated with type 2 diabetes mellitus Comment: Ordered: Paring/Cutting Hypkeratotic Lesion, Single 45308; 11:21:00 CDT, 1, Foot callus | Diabetic foot ulcer associated with type 2 diabetes mellitus Office Visit Level 5 Est 38421; 03/06/15 11:21:00 CDT, Foot callus | Diabetic foot ulcer associated with type 2 diabetes mellitus | Controlled type 2 diabetes mellitus witho ut complication | Hyperlipidemia | CKD (chronic kidney disease) stage 3, GFR 30 -59 ml/min Diagnosis: Foot callus Comment: Ordered: Paring/Cutting Hypkeratotic Lesion, Single 31551; 11:21:00 CDT, 1, Foot callus | Diabetic foot ulcer associated with type 2 diabetes mellitus Office Visit Level 5 Est 37901; 03/06/15 11:21:00 CDT, Foot callus | Diabetic foot ulcer associated with type 2 diabetes mellitus | Controlled type 2 diabetes mellitus witho ut complication | Hyperlipidemia | CKD (chronic kidney disease) stage 3, GFR 30 -59 ml/min Diagnosis: Hyperlipidemia Comment: Ordered: Office Visit Level 5 Est 49939; 03/06/15 11:21:00 CDT, Foot callus | Diabetic foot ulcer associated with type 2 diabetes mellitus | Controlled type 2 diabetes mellitus without com plication | Hyperlipidemia | CKD (chronic kidney disease) stage 3, GFR 30-59 ml /min Diagnosis: Hypertension Comment: Ordered: Office Visit Level 5 Est 33441; 03/06/15 11:21:00 CDT, Foot callus | Diabetic foot ulcer associated with type 2 diabetes mellitus | Controlled type 2 diabetes mellitus without com plication | Hyperlipidemia | CKD (chronic kidney disease) stage 3, GFR 30-59 ml /min Diagnosis: Lymphedema Comment: Ordered: Office Visit Level 5 Est [id number]; 03/06/15 11:21:00 CDT, Foot callus | Diabetic foot ulcer associated with type 2 diabetes mellitus | Controlled type 2 diabetes mellitus without com plication | Hyperlipidemia | CKD (chronic kidney disease) stage 3, GFR 30-59 ml /min Diagnosis: Venous stasis dermatitis Comment: Ordered: Office Visit Level 5 Est [id number]; 03/06/15 11:21:00 CDT, Foot callus | Diabetic foot ulcer associated with type 2 diabetes mellitus | Controlled type 2 diabetes mellitus without com plication | Hyperlipidemia | CKD (chronic kidney disease) stage 3, GFR 30-59 ml /min Additional Orders: Comment: Ordered: Januvia 50 mg oral tablet,1 tabs, Oral, Daily, # 30 tabs , 3 Refill(s), Pharmacy: [facility] #[id number] Ordered: Lasix 40 mg oral tablet,1 tabs, Oral, Daily, # 90 tabs, 3 Refill(s), Pharmacy: [facility] #[id number], 1 tabs Oral Daily,x90 days Ordered: Zantac 300 oral tablet,1 tabs, Oral, Bedtime (once a day) , # 90 tabs, 3 Refill(s), Pharmacy: [facility] #[id number], 1 tabs Oral Bedtime (once a day),x90 days Ordered: lisinopril 5 mg oral tablet,1 tabs, Oral, Daily, # 90 tabs, 3 Refill(s), Pharmacy: [facility] #[id number], 1 tabs Oral Daily Ordered: simvastatin 20 mg oral tablet,1 tabs, Oral, Bedtime ( once a day), # 90 tabs, 3 Refill(s), Pharmacy: [facility] #[id number], 1 tabs Oral Bedtime (once a day),x90 days End of Orders ."
--- OUTSIDE RECORDS SUMMARY | 2017-11-03 13:02 | External Medical Summary ---
:1925 Author Name GENERATED, SYSTEM Care Team Providers Name Role Phone MD BRUNSON TIMOTHY Primary Care Provider [phone] Reason For Visit Reason for Visit from 09/02/2017 8:10 AM:Pt Stated Reason for Adm : "EGD" Chief Complaint DYSPHAGIA,EGD Social History Social History from 09/02/2017 10:26 AM:Tobacco Use? : Former SmokerSocial History from 09/02/2017 8:10 AM:Tobacco Use? : Former Smoker Functional Status Functional Status from 09/02/2017 11:09 AM:LOC : AlertFunctional Status from 09/02 10:36 AM:LOC : AlertFunctional Status from 09/02/2017 10:23 AM:LOC : DrowsyFunctional Status from 09/02/2017 8:10 AM:LOC : AlertOriented To : Person, Place,Time,EventWeight Bearing Status : PartialAssist Level : Dependent# Assists : 2 Vital Signs Hospital Vital Signs from 09/02/2017 11:30 AM:Heart Rate : 55Resp Rate : 17Systolic BP (mmHg) : 156Diastolic BP (mmHg) : 80Mean BP (mmHg) : 123O2 Saturation (%) : 99Hospital Vital Signs from 09/02/2017 11:15 AM:Heart Rate : 52Resp Rate : 18Systolic BP (mmHg) : 149Diastolic BP (mmHg) : 67Mean BP (mmHg) : 111O2 Saturation (%) : 100Hospital Vital Signs from 09/02/2017 11:00 AM:Heart Rate : 53Resp Rate : 20O2 Saturation (%) : 100Hospital Vital Signs from 2016 10:45 AM:Temp : 97.3Heart Rate : 52Resp Rate : 23Systolic BP (mmHg) : 132Diastolic BP (mmHg) : 59Mean BP (mmHg) : 93O2 Saturation (%) : 98Hospital Vital Signs from 09/02/2017 10:35 AM:Resp Rate : 24Systolic BP (mmHg) : 117Diastolic BP (mmHg) : 64Mean BP (mmHg) : 87O2 Saturation (%) : 100Hospital Vital Signs from 09/02/2017 10:30 AM:Heart Rate : 59Resp Rate : 20Systolic BP ( mmHg) : 103Diastolic BP (mmHg) : 48Mean BP (mmHg) : 60O2 Saturation (%) : 100Hospital Vital Signs from 09/02/2017 10:25 AM:Heart Rate : 53Resp Rate : 26Systolic BP (mmHg) : 91Diastolic BP (mmHg) : 44Mean BP (mmHg) : 64O2 Saturation (%) : 100Hospital Vital Signs from 09/02/2017 10:20 AM:Temp : 97.1Heart Rate : 58Resp Rate : 20Systolic BP (mmHg) : 90Diastolic BP (mmHg) : 42Mean BP (mmHg) : 63O2 Saturation (%) : 100Hospital Vital Signs from 09/02/2017 8:47 AM:Weight : 63.4/ kgHeight : 5/8 ft,inTemperature : 98.8 FPulse : 54Respirations : 18BP : 165/75Hospital Vital Signs from 09/02/2017 8:10 AM: Weight : 63.4/ kgHeight : 5/8 ft,in Results Problems Encounter Diagnosis Fall Risk Status:Active. Encounters Encounter Diagnosis Fall Risk Status:Active. Plan of Care Follow-up Appointments from 09/02/2017 10:26 AM:#1 Office appointment: : Dr. Josué Merrill#1 Date/Time : 09/23/2017 1:45 PMAddress # 1 : [facility]: [address] [place]- or Procedures No relevant procedures performed. Immunizations No immunizations administered or ordered. Hospital Course Hospital Discharge Instructions How to care for yourself at home from 09/02/2017 10:26 AM:Discharge Activity : Activity as tolerated,May ShowerDischarge Diet : As before hospitalization,Diet as toleratedCall your doctor if: : Fever over 101 F or severe chills,Chest pain or other unexplained symptoms,You have persistent or worsening symptomsSpecific Discharge Teaching Instructions provided: : YesSpecific Discharge Teaching Instructions Reviewed: : OtherDischarge on Warfarin : No Allergies, Adverse Reactions, Alerts This section is labor representative of the current allergy information, at the time of the CCD generation. In the case of regeneration of the CCD, the allergy information may not reflect the state of known allergies at the time of the CCD' s subject visit. Bee Sting (as Environmental allergen) causes Unknown.vancomycin causes Unknown.amoxicillin causes Unknown.No Latex Allergy.No IV Contrast Allergy. Medication Medication reconciliation has not been performed.
--- OUTSIDE RECORDS SUMMARY | 2017-11-03 13:02 | External Medical Summary | Referral Summary ---
:1925 Author Organization [facility] Address [address] [place] [address] [place] Munson [id number] Care Team Providers Name Role Phone Harry Guillen Primary Care Physician Encounter VC Date(s): 05/03/15 - 05/03/15 [facility] [address] [place] [address] [place] [phone] [place] Discharge Diagnosis: PERSONAL HISTORY OF MALIGNANT NEOPLASM OF PROSTATE Discharge Disposition: 01-Home or Self Care Attending Physician: Cristino Gregorio JR, MD Admitting Physician: Cristino Gregorio JR, MD Referring Physician: Harry Guillen MD Vital Signs Most recent to oldest [Reference Range]: 1 Peripheral Pulse Rate [60-100 bpm] 62 bpm (05/03/15 10:39 AM) Blood Pressure [90-140/60-90 mmHg] 152/70 mmHg *HI* (05/03/15 10:39 AM) SpO2 97 % (05/03/15 10:39 AM) Problem List Condition Effective Dates Status [...] type 2, Active uncontrolled(Confirmed) Weight loss(Confirmed) Active 58672? Allergies, Adverse Reactions, Alerts Substance Reaction Severity Status amoxicillin acute interstitial nephritis Active Bee Stings Active vancomycin rash, itching Active Medications Aspirin Low Dose 81 mg, Oral, Daily, 0 Refill(s) Start Date: 04/19/14 Status: Orderedcontour test strips contour test strips, See Instructions, Test blood sugars twice daily, # 1 bottles, 3 Refill(s), Pharmacy: [facility] #[id number], Test blood sugars twice daily Start Date: 11/12/15 Status: Orderedfamotidine 20 mg oral tablet 20 mg 1 tabs, Oral, BID, as needed for itching, # 60 tabs, 3 Refill(s), Pharmacy : [facility] #[id number], 1 tabs Oral BID,PRN:as needed for itching Start Date: 10/04/15 Status: Orderedferrous sulfate 325 mg, Oral, BID, 0 Refill(s) Start Date: 04/19/14 Status: Orderedfolic acid 0.8 mg oral tablet 1 tabs, Oral, Daily, 0 Refill(s) Start Date: 04/19/14 Status: OrderedJanuvia 50 mg oral tablet 50 mg 1 tabs, Oral, Daily, X 90 days, # 90 tabs, 3 Refill(s), Pharmacy: [facility] #[id number] Start Date: 10/04/15 Stop Date: 09/28/16 Status: OrderedLasix 40 mg oral tablet 40 mg 1 tabs, Oral, Daily, # 90 tabs, 3 Refill(s), Pharmacy: [facility] # [id number], 1 tabs Oral Daily Start Date: 10/04/15 Status: Orderedlisinopril 5 mg oral tablet 5 mg 1 tabs, Oral, Daily, # 90 tabs, 3 Refill(s), Pharmacy: [facility] # [id number], 1 tabs Oral Daily Start Date: 10/04/15 Status: Orderedsimvastatin 20 mg oral tablet 20 mg 1 tabs, Oral, Bedtime (once a day), # 90 tabs, 3 Refill(s), Pharmacy: [facility] #[id number], 1 tabs Oral Bedtime (once a day),x90 [...] day), # 90 tabs, 3 Refill(s), Pharmacy: [facility] #[id number], 1 tabs Oral Bedtime (once a day) [...] Colonoscopy 2007 Cystourethroscopy 05/30/02 Colonoscopy 2001 Cystoscopy 2002 Hospital admission for rib fractures [...] Extracted from: Title: Ambulatory Patient Education Author: Cristino Gregorio JR, MD Date: 05/03/15 Follow Up With: Where: When: Harryaga Guillen [address] [place] [address] Drive; [place] [address] Business (1) Within 3 to 5 days Comments: Follow Up With: Where: When: Cristino Gregorio [address]; [place] [address] Sojern (1) In 1 year 05/03/2016 Comments: Extracted from: Title: Office Visit Note Author: Crsitino Gregorio JR, MD Date: 05/03/15 Assessment/Plan PERSONAL HISTORY OF MALIGNANT NEOPLASM OF PROSTATE recheck in my office in one year. PSA a week before next visit. Drink any of liquids. 15 minute face to face visit with 2/3 of the visit devoted to counseling. Ordered: Office Visit Level 3 Est 34300 Prostate Specific Antigen
--- OUTSIDE RECORDS SUMMARY | 2017-11-03 13:02 | External Medical Summary | Referral Summary ---
:1925 [facility] Address [address] [place] [address] [place] Mun[place] [phone] Care Team Providers Name Role Phone Harry Guillen Primary Care Physician Encounter VC Date(s): 03/06/15 - 03/06/15 [facility] [place] [phone] [place] Discharge Disposition: [...] type 2, Active uncontrolled(Confirmed) Weight loss(Confirmed) Active 47123? Allergies, Adverse Reactions, Alerts Substance Reaction Severity Status amoxicillin acute interstitial nephritis Active Bee Stings Active vancomycin rash, itching Active Medications Aspirin Low Dose 81 mg, Oral, Daily, 0 Refill(s) Start Date: 04/19/14 Status: Orderedfamotidine 20 mg oral tablet 20 mg 1 tabs, Oral, BID, as needed for itching, # 60 tabs, 5 Refill(s), Pharmacy : [facility] #[id number], 1 tabs Oral BID,PRN:as needed for itching Start Date: 05/01/15 Status: Orderedferrous sulfate 325 mg, Oral, BID, 0 Refill(s) Start Date: 04/19/14 Status: Orderedfolic acid 0.8 mg oral tablet 1 tabs, Oral, Daily, 0 Refill(s) Start Date: 04/19/14 Status: OrderedJanuvia 50 mg oral tablet See Instructions, TAKE ONE TABLET BY MOUTH DAILY, # 30 tabs, 2 Refill(s), eRx: [facility] #[id number], TAKE ONE TABLET BY MOUTH DAILY Start Date: 08/16/15 Status: OrderedLasix 40 mg oral tablet 1 tabs, Oral, Daily, # 90 tabs, 3 Refill(s), Pharmacy: [facility] #[id number] , 1 tabs Oral Daily,x90 days Start Date: 03/06/15 Stop Date: 02/29/16 Status: Orderedlisinopril 5 mg oral tablet 1 tabs, Oral, Daily, # 90 tabs, 3 Refill(s), Pharmacy: [facility] #[id number] , 1 tabs Oral Daily Start Date: 03/06/15 Status: Orderedsimvastatin 20 mg oral tablet 1 tabs, Oral, Bedtime (once a day), # 90 tabs, 3 Refill(s), Pharmacy: [facility] #[id number], 1 tabs Oral Bedtime (once a day),x90 [...] day), # 90 tabs, 3 Refill(s), Pharmacy: [facility] #[id number], 1 tabs Oral Bedtime (once a day),x90 [...] 07/18/2005 Document Revised: 01/03/2013 Document Reviewed: 06/08/2012 [facility] Patient Information 2014 [employer]. No follow up information was provided. Extracted [...] Orders Ordered Office Visit Level 5 Est 28151: Paring/Cutting Hypkeratotic Lesion, Single 72903: Prescriptions Prescribed Januvia 50 mg oral tablet: [...] Comment: Ordered: Office Visit Level 5 Est 48753; 03/06/15 11:21:00 CDT, Foot callus | Diabetic foot ulcer associated with type 2 diabetes mellitus | Controlled type 2 diabetes mellitus without com plication | Hyperlipidemia | CKD (chronic kidney disease) stage 3, GFR 30-59 ml /min Diagnosis: Controlled type 2 diabetes mellitus without complication Comment: Ordered: Office Visit Level 5 Est 40495; 03/06/15 11:21:00 CDT, Foot callus | Diabetic foot ulcer associated with type 2 diabetes mellitus | Controlled type 2 diabetes mellitus without com plication | Hyperlipidemia | CKD (chronic kidney disease) stage 3, GFR 30-59 ml /min Diagnosis: Diabetic foot ulcer associated with type 2 diabetes mellitus Comment: Ordered: Paring/Cutting Hypkeratotic Lesion, Single 72332; 11:21:00 CDT, 1, Foot callus | Diabetic foot ulcer associated with type 2 diabetes mellitus Office Visit Level 5 Est 10393; 03/06/15 11:21:00 CDT, Foot callus | Diabetic foot ulcer associated with type 2 diabetes mellitus | Controlled type 2 diabetes mellitus witho ut complication | Hyperlipidemia | CKD (chronic kidney disease) stage 3, GFR 30 -59 ml/min Diagnosis: Foot callus Comment: Ordered: Paring/Cutting Hypkeratotic Lesion, Single 91511; 11:21:00 CDT, 1, Foot callus | Diabetic foot ulcer associated with type 2 diabetes mellitus Office Visit Level 5 Est 55250; 03/06/15 11:21:00 CDT, Foot callus | Diabetic foot ulcer associated with type 2 diabetes mellitus | Controlled type 2 diabetes mellitus witho ut complication | Hyperlipidemia | CKD (chronic kidney disease) stage 3, GFR 30 -59 ml/min Diagnosis: Hyperlipidemia Comment: Ordered: Office Visit Level 5 Est 69883; 03/06/15 11:21:00 CDT, Foot callus | Diabetic foot ulcer associated with type 2 diabetes mellitus | Controlled type 2 diabetes mellitus without com plication | Hyperlipidemia | CKD (chronic kidney disease) stage 3, GFR 30-59 ml /min Diagnosis: Hypertension Comment: Ordered: Office Visit Level 5 Est 19545; 03/06/15 11:21:00 CDT, Foot callus | Diabetic foot ulcer associated with type 2 diabetes mellitus | Controlled type 2 diabetes mellitus without com plication | Hyperlipidemia | CKD (chronic kidney disease) stage 3, GFR 30-59 ml /min Diagnosis: Lymphedema Comment: Ordered: Office Visit Level 5 Est 78850; 03/06/15 11:21:00 CDT, Foot callus | Diabetic foot ulcer associated with type 2 diabetes mellitus | Controlled type 2 diabetes mellitus without com plication | Hyperlipidemia | CKD (chronic kidney disease) stage 3, GFR 30-59 ml /min Diagnosis: Venous stasis dermatitis Comment: Ordered: Office Visit Level 5 Est 09292; 03/06/15 11:21:00 CDT, Foot callus | Diabetic foot ulcer associated with type 2 diabetes mellitus | Controlled type 2 diabetes mellitus without com plication | Hyperlipidemia | CKD (chronic kidney disease) stage 3, GFR 30-59 ml /min Additional Orders: Comment: Ordered: Januvia 50 mg oral tablet,1 tabs, Oral, Daily, # 30 tabs , 3 Refill(s), Pharmacy: [facility] #[id number] Ordered: Lasix 40 mg oral tablet,1 tabs, Oral, Daily, # 90 tabs, 3 Refill(s), Pharmacy: [facility] #[id number], 1 tabs Oral Daily,x90 days Ordered: Zantac 300 oral tablet,1 tabs, Oral, Bedtime (once a day) , # 90 tabs, 3 Refill(s), Pharmacy: [facility] #[id number], 1 tabs Oral Bedtime (once a day),x90 days Ordered: lisinopril 5 mg oral tablet,1 tabs, Oral, Daily, # 90 tabs, 3 Refill(s), Pharmacy: [facility] #[id number], 1 tabs Oral Daily Ordered: simvastatin 20 mg oral tablet,1 tabs, Oral, Bedtime ( once a day), # 90 tabs, 3 Refill(s), Pharmacy: [facility] #[id number], 1 tabs Oral Bedtime (once a day),x90 days End of Orders ."
--- OUTSIDE RECORDS SUMMARY | 2017-11-03 13:03 | External Medical Summary | Referral Summary ---
:1925 Author Organization [facility] [address] [place] [address] Care Team Providers Name Role Phone Harry Guillen Primary Care Physician Encounter VC Date(s): 11/26/16 - 11/26/16 [facility] [address] [place] [phone] Discharge Diagnosis: Blood loss anemia Discharge Diagnosis: Diabetes type 2, uncontrolled Discharge Diagnosis: CKD (chronic kidney disease) stage 3, GFR 30-59 ml/min Discharge Diagnosis: Non-ST elevation DC (NSTEMI) Discharge Diagnosis: Oropharyngeal dysphagia Discharge Diagnosis: Weakness Discharge Diagnosis: Adult hypothyroidism Discharge Diagnosis: Mixed hyperlipidemia Discharge Diagnosis: Bilateral pleural effusion Discharge Diagnosis: Decubitus ulcer of sacral region, stage 1 Discharge Diagnosis: PRISCILLA (obstructive sleep apnea) Discharge Diagnosis: Nocturnal hypoxemia Discharge Disposition: 01-Home or Self Care Attending Physician: Harry Guillen MD Admitting Physician: Harry Guillen MD Vital Signs Most recent to oldest [Reference Range]: 1 Temperature Tympanic [36.6-38.1 degC] 36.6 degC (11/26/16 9:27 AM) Peripheral Pulse Rate [60-100 bpm] 72 bpm (11/26/16 9:27 AM) Blood Pressure [90-140/60-90 mmHg] 130/70 mmHg (11/26/16 9:27 AM) SpO2 99 % (11/26/16 9:27 AM) Problem List Condition Effective Dates Status [...] initiation of Impaired Skin Integrity Plan of [id number] added automatically by system based on initiation of Knowledge Deficit Plan of [id number]? Allergies, Adverse Reactions, Alerts Substance Reaction Severity [...] mg/3 mLinhalation solution 3 mL, NEB, QID, # 270 mL, 3 Refill(s), other reason (Rx) Start Date: [...] day), # 600 mL, 5 Refill(s), Pharmacy: [facility], 20 mL G-Tube Bedtime (once a day) [...] Refill(s) Start Date: 11/12/16 Status: Ordered Results No data available for this section Immunizations Given and Recorded Vaccine Date Status [...] Body Site Colonoscopy 2007 Cystourethroscopy 05/30/02 Colonoscopy 2002 Cystoscopy 2002 Hospital [...] Extracted from: Title: Ambulatory Patient Education Author: aHrry Guillen MD Date: 11/26/16 Nephrology Chronic Kidney Disease Chronic kidney disease occurs when the kidneys are damaged over a long period. The kidneys are two organs that lie [...] kidneys to work the way they should. If steps are not taken to slow down the kidney damage or stop it from getting worse, the kidneys may stop working permanently. Most of the time, chronic kidney disease does not go away. However , it can often be controlled, and those with the disease can usually live normal lives. CAUSES The most common causes of chronic kidney disease are diabetes and high blood pressure (hypertension). Chronic kidney disease may also be caused by: Diseases that cause the kidneys' filters to become inflamed. Diseases that affect the immune system. Genetic diseases. Medicines that damage the kidneys, such as anti-inflammatory medicines. Poisoning or exposure to toxic substances. A reoccurring kidney or urinary infection. A problem with urine flow. This may be caused by: Cancer. Kidney stones. An enlarged prostate in males. SIGNS AND SYMPTOMS Because the kidney damage in chronic kidney disease occurs slowly, symptoms develop slowly and may not be obvious until the kidney damage becomes severe. A person may have a kidney disease for years without showing any symptoms. Symptoms can include: Swelling (edema) of the legs, ankles, or feet. Tiredness (lethargy). Nausea or vomiting. Confusion. Problems with urination, such as: Decreased urine production. Frequent urination, especially at night. Frequent accidents in children who are potty trained. Muscle twitches and cramps. Shortness of breath. Weakness. Persistent itchiness. Loss of appetite. Metallic taste in the mouth. Trouble sleeping. Slowed development in children. Short stature in children. DIAGNOSIS Chronic kidney disease may be detected and diagnosed by tests, including blood , urine, imaging, or kidney biopsy tests. TREATMENT Most chronic kidney diseases cannot be cured. Treatment usually involves relieving symptoms and preventing or slowing the progression of the disease. Treatment may include: A special diet. You may need to avoid alcohol and foods thatare salty and high in potassium. Medicines. These may: Lower blood pressure. Relieve anemia. Relieve swelling. Protect the bones. HOME CARE INSTRUCTIONS Follow your prescribed diet. Your health care provider may instruct you to limit daily salt (sodium) and protein intake. Take medicines only as directed by your health care provider. Do not take any new medicines (prescription, [id number], or nutritional supplements) unless approved by your health care provid er. Many medicines can worsen your kidney damage or need to have the dose adjusted. Quit smoking if you smoke. Talk to your health care provider about a smoking cessation program. Keep all follow-up visits as directed by your health care provider. Monitor your blood pressure. Start or continue an exercise plan. Get immunizations as directed by your health care provider. Take vitamin and mineral supplements as directed by your health care provider. SEEK IMMEDIATE MEDICAL CARE IF: Your symptoms get worse or you develop new symptoms. You develop symptoms of end-stage kidney disease. These include: Headaches. Abnormally dark or light skin. Numbness in the hands or feet. Easy bruising. Frequent hiccups. Menstruation stops. You have a fever. You have decreased urine production. You havepain or bleeding when urinating. MAKE SURE YOU: Understand these instructions. Will watch your condition. Will get help right away if you are not doing well or get worse. FOR MORE INFORMATION [place] [employer] Patients: www.aakp.org National Kidney Foundation: www.kidney.org [employer]: www.akfinc.org Life Options Rehabilitation Program: www.lifeoptions.org and www.kidneyschool.org This information is not intended to replace advice given to you by your health care provider. Make sure you discuss any questions you have with your health care provider. Document Released: 07/21/2009 Document Revised: 11/02/2015 Document Reviewed: 06/10/2013 [employer] Patient Education 2016 [employer] No follow up information was provided. Extracted from: Title: several problems Author: Harry Guillen MD Date: 11/26/16 Impression and Plan Diagnosis Decubitus ulcer of sacral region, stage 1 (KFS00-ZQ L89.151, Discharge, Medical ). Oropharyngeal dysphagia (GCB10-VC R13.12, Discharge, Medical). Diabetes type 2, uncontrolled (KWN26-PV E11.65, Discharge, Medical). CKD (chronic kidney disease) stage 3, GFR 30-59 ml/min (RLS01-WB N18.3, Discharge, Medical). PRISCILLA (obstructive sleep apnea) (MPZ03-PR G47.33, Discharge, Medical). Nocturnal hypoxemia (PMI33-NX G47.34, Discharge, Medical). Bilateral pleural effusion (NEG57-DQ J90, Discharge, Medical). Weakness (RFN61-WQ R53.1, Discharge, Medical). Blood loss anemia (BTZ55-MP D50.0, Discharge, Medical). Mixed hyperlipidemia (JGZ76-GW E78.2, Discharge, Medical). Adult hypothyroidism (FHR50-CS E03.9, Discharge, Medical). Non-ST elevation DC (NSTEMI) (OVD61-UP I21.4, Discharge, Medical). Plan: 1) Sleep medicine evaluation ordered for nocturnal hypoxemia and high suspicion for sleep disordered breathing. 2) Discontinue Ambien. 3) Continue your other meds. 4) See me in 3 weeks and as needed.. Orders Orders (Selected) Outpatient Orders Ordered Office Visit Level 4 Est 85798: . Dx/Order Association Plan: Diagnosis: Adult hypothyroidism Comment: Diagnosis: Bilateral pleural effusion Comment: Diagnosis: Blood loss anemia Comment: Ordered: Office Visit Level 4 Est 67869; 11/26/16 11:55:00 SR. DIRECTOR, Oropharyngeal dysphagia | Nocturnal hypoxemia | PRISCILLA (obstructive sleep apnea) | Weakness | Diabetes type 2, uncontrolled | B lood loss anemia | Decubitus ulcer of sacral region, stage 1 | CKD (chronic kidney disease) stage 3, GFR... Diagnosis: CKD (chronic kidney disease) stage 3, GFR 30-59 ml/min Comment: Ordered: Office Visit Level 4 Est 88160; 11/26/16 11:55:00 SR. DIRECTOR, Oropharyngeal dysphagia | Nocturnal hypoxemia | PRISCILLA (obstructive sleep apnea) | Weakness | Diabetes type 2, uncontrolled | B lood loss anemia | Decubitus ulcer of sacral region, stage 1 | CKD (chronic kidney disease) stage 3, GFR... Diagnosis: Decubitus ulcer of sacral region, stage 1 Comment: Ordered: Office Visit Level 4 Est 34821; 11/26/16 11:55:00 SR. DIRECTOR, Oropharyngeal dysphagia | Nocturnal hypoxemia | PRISCILLA (obstructive sleep apnea) | Weakness | Diabetes type 2, uncontrolled | B lood loss anemia | Decubitus ulcer of sacral region, stage 1 | CKD (chronic kidney disease) stage 3, GFR... Diagnosis: Diabetes type 2, uncontrolled Comment: Ordered: Office Visit Level 4 Est 54607; 11/26/16 11:55:00 SR. DIRECTOR, Oropharyngeal dysphagia | Nocturnal hypoxemia | PRISCILLA (obstructive sleep apnea) | Weakness | Diabetes type 2, uncontrolled | B lood loss anemia | Decubitus ulcer of sacral region, stage 1 | CKD (chronic kidney disease) stage 3, GFR... Diagnosis: Mixed hyperlipidemia Comment: Ordered: Office Visit Level 4 Est 83520; 11/26/16 11:55:00 SR. DIRECTOR, Oropharyngeal dysphagia | Nocturnal hypoxemia | PRISCILLA (obstructive sleep apnea) | Weakness | Diabetes type 2, uncontrolled | B lood loss anemia | Decubitus ulcer of sacral region, stage 1 | CKD (chronic kidney disease) stage 3, GFR... Diagnosis: Nocturnal hypoxemia Comment: Ordered: Office Visit Level 4 Est 51308; 11/26/16 11:55:00 SR. DIRECTOR, Oropharyngeal dysphagia | Nocturnal hypoxemia | PRISCILLA (obstructive sleep apnea) | Weakness | Diabetes type 2, uncontrolled | B lood loss anemia | Decubitus ulcer of sacral region, stage 1 | CKD (chronic kidney disease) stage 3, GFR... Diagnosis: Non-ST elevation DC (NSTEMI) Comment: Ordered: Office Visit Level 4 Est 02125; 11/26/16 11:55:00 SR. DIRECTOR, Oropharyngeal dysphagia | Nocturnal hypoxemia | PRISCILLA (obstructive sleep apnea) | Weakness | Diabetes type 2, uncontrolled | B lood loss anemia | Decubitus ulcer of sacral region, stage 1 | CKD (chronic kidney disease) stage 3, GFR... Diagnosis: PRISCILLA (obstructive sleep apnea) Comment: Ordered: Office Visit Level 4 Est 77595; 11/26/16 11:55:00 SR. DIRECTOR, Oropharyngeal dysphagia | Nocturnal hypoxemia | PRISCILLA (obstructive sleep apnea) | Weakness | Diabetes type 2, uncontrolled | B lood loss anemia | Decubitus ulcer of sacral region, stage 1 | CKD (chronic kidney disease) stage 3, GFR... Diagnosis: Oropharyngeal dysphagia Comment: Ordered: Office Visit Level 4 Est 20162; 11/26/16 11:55:00 SR. DIRECTOR, Oropharyngeal dysphagia | Nocturnal hypoxemia | PRISCILLA (obstructive sleep apnea) | Weakness | Diabetes type 2, uncontrolled | B lood loss anemia | Decubitus ulcer of sacral region, stage 1 | CKD (chronic kidney disease) stage 3, GFR... Diagnosis: Weakness Comment: Ordered: Office Visit Level 4 Est 88497; 11/26/16 11:55:00 SR. DIRECTOR, Oropharyngeal dysphagia | Nocturnal hypoxemia | PRISCILLA (obstructive sleep apnea) | Weakness | Diabetes type 2, uncontrolled | B lood loss anemia | Decubitus ulcer of sacral region, stage 1 | CKD (chronic kidney disease) stage 3, GFR... End of Orders ."
--- OUTSIDE RECORDS SUMMARY | 2017-11-03 13:03 | External Medical Summary | Referral Summary ---
:1925 Author [facility] [address] [place] [address] [place] [address] Care Team Providers Name Role Phone Harry Guileln Primary Care Physician Encounter VC Date(s): 10/04/15 - 10/04/15 [facility] [address] [place] [phone] [place] Discharge Disposition: 01-Home or Self Care Attending Physician: Harry Guillen MD Admitting Physician: Harry Guillen MD Vital Signs Most recent to oldest [Reference Range]: 1 Temperature Tympanic [36.6-38.1 degC] 37.3 degC (10/04/15 10:49 AM) Peripheral Pulse Rate [60-100 bpm] 90 bpm (10/04/15 10:49 AM) Respiratory Rate [14-20 br/min] 18 br/min (10/04/15 10:49 AM) Blood Pressure [90-140/60-90 mmHg] 128/76 mmHg (10/04/15 10:49 AM) SpO2 96 % (10/04/15 10:49 AM) Problem List Condition Effective Dates Status [...] type 2, Active uncontrolled(Confirmed) Weight loss(Confirmed) Active 99359? Allergies, Adverse Reactions, Alerts Substance Reaction Severity Status amoxicillin acute interstitial nephritis Active Bee Stings Active vancomycin rash, itching Active Medications Aspirin Low Dose 81 mg, Oral, Daily, 0 Refill(s) Start Date: 04/19/14 Status: Orderedfamotidine 20 mg oral tablet 20 mg 1 tabs, Oral, BID, as needed for itching, # 60 tabs, 3 Refill(s), Pharmacy : [facility] #[id number], 1 tabs Oral BID,PRN:as needed for itching Start Date: 10/04/15 Status: Orderedferrous sulfate 325 mg, Oral, BID, 0 Refill(s) Start Date: 04/19/14 Status: Orderedfolic acid 0.8 mg oral tablet 1 tabs, Oral, Daily, 0 Refill(s) Start Date: 04/19/14 Status: OrderedJanuvia 50 mg oral tablet 50 mg 1 tabs, Oral, Daily, X 90 days, # 90 tabs, 3 Refill(s), Pharmacy: [facility] #[id number] Start Date: 10/04/15 Stop Date: 09/28/16 Status: OrderedLasix 40 mg oral tablet 40 mg 1 tabs, Oral, Daily, # 90 tabs, 3 Refill(s), Pharmacy: [facility] # [id number], 1 tabs Oral Daily Start Date: 10/04/15 Status: Orderedlisinopril 5 mg oral tablet 5 mg 1 tabs, Oral, Daily, # 90 tabs, 3 Refill(s), Pharmacy: [facility] # [id number], 1 tabs Oral Daily Start Date: 10/04/15 Status: Orderedsimvastatin 20 mg oral tablet 20 mg 1 tabs, Oral, Bedtime (once a day), # 90 tabs, 3 Refill(s), Pharmacy: [facility] #[id number], 1 tabs Oral Bedtime (once a day),x90 [...] day), # 90 tabs, 3 Refill(s), Pharmacy: [facility] #[id number], 1 tabs Oral Bedtime (once a day) Start Date: 10/04/15 Status: Ordered Results Chemistry Most recent to oldest [Reference Range]: 1 Sodium Lvl [135-144 mEq/L] 142 mEq/L (10/04/15 11:58 AM) Potassium Lvl [3.5-5.2 mEq/L] 4.8 mEq/L (10/04/15 11:58 AM) Chloride [99-111 mEq/L] 108 mEq/L (10/04/15 11:58 AM) CO2 [23-31 mEq/L] 26 mEq/L (10/04/15 11:58 AM) AGAP [3-20] 8 (10/04/15 11:58 AM) BUN [8-26 mg/dL] 32 mg/dL *HI* (10/04/15 11:58 AM) Glucose Lvl [70-99 mg/dL] 140 mg/dL *HI* (10/04/15 11:58 AM) Creatinine Lvl [0.72-1.25 mg/dL] 1.39 mg/dL *HI* (10/04/15 11:58 AM) eGFR [>60 mL/min] 48 mL/min 1 *ABN* (10/04/15 11:58 AM) Calcium Lvl [8.9-10.5 mg/dL] 9.7 mg/dL (10/04/15 11:58 AM) Albumin Lvl [3.4-4.8 gm/dL] 3.9 gm/dL (10/04/15 11:58 AM) Total Protein [6.2-8.1 gm/dL] 6.9 gm/dL (10/04/15 11:58 AM) Globulin [1.8-4.0 gm/dL] 3.0 gm/dL (10/04/15 11:58 AM) ALT [0-55 U/L] 20 U/L (10/04/15:58 AM) AST [5-34 U/L] 19 U/L (10/04/15:58 AM) Alk Phos [40-150 U/L] 96 U/L (10/04/15 11:58 AM) Bili Total [0.2-1.2 mg/dL] 0.2 mg/dL (10/04/15 11:58 AM) Hgb A1c [4.1-5.6 %] 6.5 % *HI* (10/04/15 11:58 AM) eAvg Glucose 139.9 mg/dL (10/04/15 11:58 AM) 1Result Comment: Multiply eGFR results by [...] Site Paring or cutting of benign hyperkeratotic 10/04/15 lesion (eg, corn or callus); single lesion [...] Patient Education Author: Harry Guillen MD Date: Home Health Care Chronic Kidney Disease Chronic kidney disease occurs [...] may have a kidney disease for years wit hout showing any symptoms. Symptoms can include: Swelling [...] Do not take any new medicines (prescription, lepl-cct-dzonmxj, or nutritional supplements) unless approved by your health care provider . Many medicines can worsen your kidney damage [...] well or get worse. FOR MORE INFORMATION [place] Association of Kidney Patients: www.aakp.org National Kidney Foundation: www.kidney.org [employer] Kidney Fund: www.akfinc.org Life Options Rehabilitation Program: www.lifeoptions.org and www.kidneyschool.org Document Released: 07/21/2009 Document Revised: 02/26/2015 Document Reviewed: 06/10/2013 [employer] Patient Information 2015 [facility]. This information is not intended to replace advice given to you by your health care provider. Make sure you discuss any questions you have with your health care provider. No follow up information was provided. Extracted from: Title: Diabetes, HTN, foot callus Author: Harry Guillen MD Date: 10/04/15 Impression and Plan Diagnosis Hypertension (POF22-CA I10, Working, Medical). Hyperlipidemia (KFT00-HB E78.2, Working, Medical). CKD (chronic kidney disease) stage 3, GFR 30-59 ml/min (LJA19-UD N18.3, Working , Medical). Controlled type 2 diabetes mellitus without complication (RKZ71-EW E11.9, Working, Medical). Lymphedema (IIV70-YO I89.0, Working, Medical). Venous stasis dermatitis (QNF23-KG I87.2, Working, Medical). Diabetic foot ulcer associated with type 2 diabetes mellitus (JJP79-BX E11.621 , Working, Medical). Foot callus (IDB64-LY L84, Working, Medical). Plan: 1) The left foot plantar ulcer/callus under the 1st MTH was trimmed manually with a #15 scalpel blade, removing the subcutaneous blood inside the callus. 2) Continue your current meds. 3) Lab ordered today. 4) Legs and feet re-wrapped with rigo wraps. 5) See me in 2 months and as needed.. Orders Orders (Selected) Outpatient Orders Ordered CMP: Hgb A1c: Office Visit Level 4 Est 81477: Paring/Cutting Hypkeratotic Lesion, Single 66880: Prescriptions Prescribed Januvia 50 mg oral tablet: 50 mg=1 tabs, Oral, Daily, for 90 days, 90 tabs, 3 Refill(s) Lasix 40 mg oral tablet: 40 mg=1 tabs, Oral, Daily, 90 tabs, 3 Refill(s) Zantac 300 oral tablet: 300 mg=1 tabs, Oral, Bedtime (once a day), 90 tabs, 3 Refill(s) famotidine 20 mg oral tablet: 20 mg=1 tabs, Oral, BID, PRN: as needed for itching, 60 tabs, 3 Refill(s) lisinopril 5 mg oral tablet: 5 mg=1 tabs, Oral, Daily, 90 tabs, 3 Refill(s) simvastatin 20 mg oral tablet: 20 mg=1 tabs, Oral, Bedtime (once a day), for 90 days, 90 tabs, 3 Refill(s). Dx/Order Association Plan: Diagnosis: CKD (chronic kidney disease) stage 3, GFR 30-59 ml/min Comment: Ordered: CMP; Blood, Routine Collect, 10/04/15 11:42:00 WEBSPHERE ADMINISTRATOR, Once , Stop date 10/04/15 11:42:00 WEBSPHERE ADMINISTRATOR, Lab Collect, Controlled type 2 diabetes mellitus without complication | CKD (chronic kidney disease) stage 3, GFR 30-59 ml/min Diagnosis: Controlled type 2 diabetes mellitus without complication Comment: Ordered: Hgb A1c; Blood, Routine Collect, 10/04/15 11:42:00 WEBSPHERE ADMINISTRATOR, Once, Stop date 10/04/15 11:42:00 WEBSPHERE ADMINISTRATOR, Lab Collect, Controlled type 2 diabetes mellitus without complication CMP; Blood, Routine Collect, 10/04/15 11:42:00 WEBSPHERE ADMINISTRATOR , Once, Stop date 10/04/15 11:42:00 WEBSPHERE ADMINISTRATOR, Lab Collect, Controlled type 2 diabetes mellitus without complication | CKD (chronic kidney disease) stage 3, GFR 30-59 ml/min Modified: Office Visit Level 4 Est 15427; 10/04/15 11:13:00 WEBSPHERE ADMINISTRATOR, 25, Diabetic foot ulcer associated with type 2 diabetes mellitus | Foot callus | Controlled type 2 diabetes mellitus without complication | Lymphedema Diagnosis: Diabetic foot ulcer associated with type 2 diabetes mellitus Comment: Ordered: Paring/Cutting Hypkeratotic Lesion, Single 03637; 11:13:00 WEBSPHERE ADMINISTRATOR, 1, Diabetic foot ulcer associated with type 2 diabetes mellitus Modified: Office Visit Level 4 Est 54739; 10/04/15 11:13:00 WEBSPHERE ADMINISTRATOR, 25, Diabetic foot ulcer associated with type 2 diabetes mellitus | Foot callus | Controlled type 2 diabetes mellitus without complication | Lymphedema Diagnosis: Foot callus Comment: Modified: Office Visit Level 4 Est 25459; 10/04/15 11:13:00 WEBSPHERE ADMINISTRATOR, 25, Diabetic foot ulcer associated with type 2 diabetes mellitus | Foot callus | Controlled type 2 diabetes mellitus without complication | Lymphedema Diagnosis: Hyperlipidemia Comment: Diagnosis: Hypertension Comment: Diagnosis: Lymphedema Comment: Modified: Office Visit Level 4 Est 29024; 10/04/15 11:13:00 WEBSPHERE ADMINISTRATOR, 25, Diabetic foot ulcer associated with type 2 diabetes mellitus | Foot callus | Controlled type 2 diabetes mellitus without complication | Lymphedema Diagnosis: Venous stasis dermatitis Comment: Additional Orders: Comment: Ordered: Januvia 50 mg oral tablet,50 mg 1 tabs, Oral, Daily, X 90 days, # 90 tabs, 3 Refill(s), Pharmacy: [facility] #[id number] Ordered: simvastatin 20 mg oral tablet,20 mg 1 tabs, Oral, Bedtime (once a day), # 90 tabs, 3 Refill(s), Pharmacy: [facility] #[id number] , 1 tabs Oral Bedtime (once a day),x90 days End of Orders ."
--- OUTSIDE RECORDS SUMMARY | 2017-11-03 13:03 | External Medical Summary | Referral Summary ---
:1925 Author Organization [facility] [place] [id number] Care Team Providers Name Role Phone Harry Guillen Primary Care Physician Encounter [facility] [phone] Date(s): 11/20/16 - 11/20/16 [facility] [place] [phone] Discharge Diagnosis: Bilateral pleural effusion Discharge Diagnosis: Oral thrush Discharge Diagnosis: Adult hypothyroidism Discharge Diagnosis: Melena Discharge Diagnosis: Fever Discharge Diagnosis: Intermittent atrial fibrillation Discharge Diagnosis: Benign essential hypertension Discharge Diagnosis: Non-ST elevation MN (NSTEMI) Discharge Diagnosis: Uncontrolled type 2 diabetes mellitus Discharge Diagnosis: Blood loss anemia Discharge Diagnosis: Aspiration pneumonia Discharge Diagnosis: Oropharyngeal dysphagia Discharge Diagnosis: CKD (chronic kidney disease) stage 3, GFR 30-59 ml/min Discharge Diagnosis: Hyperlipidemia Discharge Diagnosis: Diarrhea Discharge Disposition: 01-Home or Self Care Attending Physician: Harry Guillen MD Admitting Physician: Harry Guillen MD Vital Signs Most recent to oldest [Reference Range]: 1 Temperature Tympanic [36.6-38.1 degC] 36.2 degC *LOW* (11/20/16 8:16 AM) Peripheral Pulse Rate [60-100 bpm] 76 bpm (11/20/16 8:16 AM) Blood Pressure [90-140/60-90 mmHg] 120/60 mmHg (11/20/16 8:16 AM) SpO2 96 % (11/20/16 8:16 AM) Problem List Condition Effective Dates Status [...] initiation of Impaired Skin Integrity Plan of [id number] added automatically by system based on initiation of Knowledge Deficit Plan of [id number]? Allergies, Adverse Reactions, Alerts Substance Reaction Severity [...] 0 Refill(s), Supply Start Date: 11/12/16 Status: Orderedipratropium-albuterol 0.5 [...] oldest [Reference Range]: 1 WBC [5.0-10.0 10*3/uL] 4.8 10*3/uL *LOW* (11/20/16 8:47 AM) RBC [3.70-5.20] 3.26 *LOW* (11/20/16 8:47 AM) Hgb [12.0-16.0 gm/dL] 10.0 gm/dL *LOW* (11/20/16 8:47 AM) Hct [40.0-54.0 %] 32.3 % *LOW* (11/20/16 8:47 AM) MCV [80.0-96.0 fL] 99.1 fL *HI* (11/20/16 8:47 AM) MCH [26.0-34.0 pg] 30.7 pg (11/20/16 8:47 AM) MCHC [32.0-36.0 gm/dL] 31.0 gm/dL *LOW* (11/20/16 8:47 AM) RDW [0.0-14.5 %] 13.2 % (11/20/16 8:47 AM) Platelet [150-400 10*3/uL] 258 10*3/uL (11/20/16 8:47 AM) MPV [8.8-14.8 fL] 10.0 fL (11/20/16 8:47 AM) Neutrophils [50-70 %] 54 % (11/20/16 8:47 AM) Lymphocytes [20-40 %] 29 % (11/20/16 8:47 AM) Monocytes [4-8 %] 12 % *HI* (11/20/16 8:47 AM) Eosinophils [0-6 %] 5 % (11/20/16 8:47 AM) Basophils [0-2 %] 0 % (11/20/16 8:47 AM) Neutro Absolute [2.50-7.00] 2.64 (11/20/16 8:47 AM) Lymph Absolute [1.00-4.00] 1.39 (11/20/16 8:47 AM) [place] Absolute [0.20-0.80] 0.60 (11/20/16 8:47 AM) Eos Absolute [0.00-0.60] 0.22 (11/20/16 8:47 AM) Baso Absolute [0.00-0.30] 0.00 (11/20/16 8:47 AM) Chemistry Most recent to oldest [Reference Range]: 1 Sodium Venous [136-144 mmol/L] 137 mmol/L (11/20/16 8:47 AM) Potassium Venous [3.6-5.1 mmol/L] 4.9 mmol/L 1 (11/20/16 8:47 AM) Calcium Ionized Venous [1.19-1.41 mmol/L] 1.19 mmol/L (11/20/16 8:47 AM) Total CO2 Venous [25-29 mmol/L] 24 mmol/L *LOW* (11/20/16 8:47 AM) Glucose Venous [70-100 mg/dL] 123 mg/dL *HI* (11/20/16 8:47 AM) BUN Venous [4-20] 28 *HI* (11/20/16 8:47 AM) Creatinine Venous [0.7-1.2 mg/dL] 1.1 mg/dL (11/20/16 8:47 AM) Venous CL [99-109 mmol/L] 101 mmol/L (11/20/16 8:47 AM) 1Result Comment: This test was performed on a whole blood specimen. The presence or absence of hemolysis cannot be assessed. Hemolysis can falsely elevate potassium levels. Normals are for venous specimens only. Immunizations Given and Recorded Vaccine Date Status Refusal Reason influenza virus vaccine, inactivated 11/15/16 Given influenza virus vaccine, inactivated1 08/08/14 Recorded [...] Procedure Date Related Diagnosis Body Site Colonoscopy 2006 Cystourethroscopy 05/30/02 Colonoscopy 2001 Cystoscopy [...] Patient Education Author: Harry Guillen MD Date: 11/20/16 ENT Aspiration Pneumonia Aspiration pneumonia is an [...] of developing aspiration pneumonia again. Only take ilzu-kue-itblxat or prescription medicines as directed by your [...] 08/09/2010 Document Revised: 10/17/2014 Document Reviewed: 03/30/2014 [employer] Interactive Patient Education 2016 [employer] No follow up information was provided. Extracted from: Title: multiple problems Author: Harry Guillen MD Date: 11/20/16 Impression and Plan Diagnosis Hyperlipidemia (LZP73-UE E78.2, Discharge, Medical). Blood loss anemia (PWN04-JJ D50.0, Discharge, Medical). Aspiration pneumonia (BEQ95-HR J69.0, Discharge, Medical). Bilateral pleural effusion (QJZ29-II J90, Discharge, Medical). Intermittent atrial fibrillation (RTO07-GN I48.0, Discharge, Medical). CKD (chronic kidney disease) stage 3, GFR 30-59 ml/min (TTT25-VL N18.3, Discharge, Medical). Benign essential hypertension (TUU10-PT I10, Discharge, Medical). Oropharyngeal dysphagia (CHM95-RK R13.12, Discharge, Medical). Melena (JVT87-TV K92.1, Discharge, Medical). Adult hypothyroidism (SCE32-ZF E03.9, Discharge, Medical). Non-ST elevation MN (NSTEMI) (TOF94-PE I21.4, Discharge, Medical). Fever (ZPI22-JZ R50.9, Discharge, Medical). Uncontrolled type 2 diabetes mellitus (KDG71-LQ E11.65, Discharge, Medical). Diarrhea (YLQ90-CS R19.7, Discharge, Medical). Oral thrush (OLC16-CE B37.0, Discharge, Medical). Plan: 1) Increase the Duo neb breathing treatments to QID, routinely. 2) Nystatin oral suspension: swish and spit and brush mouth QID X 21 days, for thrush. 3) Timolol eye drops restarted. 4) Decrease the Lisinopril to 2.5 mg per GT daily. 5) Hemoccult stools X 3 ordered. 6) See next week as scheduled, and as needed.. Orders Orders (Selected) Outpatient Orders Ordered Office Visit Level 5 Est 03158: Ordered (Exam Completed) Chest XR 2 Views: Completed CBC w/ Differential: Metabolic Panel i-STAT: . Dx/Order Association Plan: Diagnosis: Adult hypothyroidism Comment: Ordered: Office Visit Level 5 Est 45131; 11/20/16 9:05:00 [employer], Aspiration pneumonia | Bilateral pleural effusion | Fever | Uncontrolled type 2 diabetes mellitus | Diarrhea | Oral thrush | Oropharyngeal dysphagia | Non-ST elevation MN (NSTEMI) | Intermittent atrial fibrillation | Hyperlipidem... Diagnosis: Aspiration pneumonia Comment: Ordered: Office Visit Level 5 Est 53527; 11/20/16 9:05:00 [employer], Aspiration pneumonia | Bilateral pleural effusion | Fever | Uncontrolled type 2 diabetes mellitus | Diarrhea | Oral thrush | Oropharyngeal dysphagia | Non-ST elevation MN (NSTEMI) | Intermittent atrial fibrillation | Hyperlipidem... Other status: Chest XR 2 Views; 11/20/16 8:41:00 [employer], Routine, Stop date 11/20/16 8:41:00 [employer], Reason: Pneumonia, Transport Mode: Patient Bed, Patient has IV, Patient on O2, Aspiration pne umonia | Fever, ABN Status: Not Required (Status Change) Diagnosis: Benign essential hypertension Comment: Other status: Metabolic Panel i-STAT; Blood, Stat Collect, 8:41:00 [employer], Once, Stop date 11/20/16 8:41:00 [employer], Lab Collect, Benign essential hypertension | CKD (chronic kidney disease) stage 3, GFR 30-59 ml/min (Completed) Diagnosis: Bilateral pleural effusion Comment: Ordered: Office Visit Level 5 Est 19853; 11/20/16 9:05:00 [employer], Aspiration pneumonia | Bilateral pleural effusion | Fever | Uncontrolled type 2 diabetes mellitus | Diarrhea | Oral thrush | Oropharyngeal dysphagia | Non-ST elevation MN (NSTEMI) | Intermittent atrial fibrillation | Hyperlipidem... Diagnosis: Blood loss anemia Comment: Diagnosis: CKD (chronic kidney disease) stage 3, GFR 30-59 ml/min Comment: Other status: Metabolic Panel i-STAT; Blood, Stat Collect, 8:41:00 [employer], Once, Stop date 11/20/16 8:41:00 [employer], Lab Collect, Benign essential hypertension | CKD (chronic kidney disease) stage 3, GFR 30-59 ml/min (Completed) Diagnosis: Diarrhea Comment: Ordered: Office Visit Level 5 Est 57465; 11/20/16 9:05:00 [employer], Aspiration pneumonia | Bilateral pleural effusion | Fever | Uncontrolled type 2 diabetes mellitus | Diarrhea | Oral thrush | Oropharyngeal dysphagia | Non-ST elevation MN (NSTEMI) | Intermittent atrial fibrillation | Hyperlipidem... Diagnosis: Fever Comment: Ordered: Office Visit Level 5 Est 41958; 11/20/16 9:05:00 [employer], Aspiration pneumonia | Bilateral pleural effusion | Fever | Uncontrolled type 2 diabetes mellitus | Diarrhea | Oral thrush | Oropharyngeal dysphagia | Non-ST elevation MN (NSTEMI) | Intermittent atrial fibrillation | Hyperlipidem... Other status: CBC w/ Differential; Blood, Stat Collect, 11/20/16 8:41:00 [employer], Once, Stop date 11/20/16 8:41:00 [employer], Lab Collect, Fever (Completed ) Chest XR 2 Views; 11/20/16 8:41:00 [employer], Routine, Stop date 11/20/16 8:41:00 [employer], Reason: Pneumonia, Transport Mode: Patient Bed, Patient has IV, Patient on O2, Aspira tion pneumonia | Fever, ABN Status: Not Required (Status Change) Diagnosis: Hyperlipidemia Comment: Ordered: Office Visit Level 5 Est 37696; 11/20/16 9:05:00 [employer], Aspiration pneumonia | Bilateral pleural effusion | Fever | Uncontrolled type 2 diabetes mellitus | Diarrhea | Oral thrush | Oropharyngeal dysphagia | Non-ST elevation MN (NSTEMI) | Intermittent atrial fibrillation | Hyperlipidem... Diagnosis: Intermittent atrial fibrillation Comment: Ordered: Office Visit Level 5 Est 68331; 11/20/16 9:05:00 [employer], Aspiration pneumonia | Bilateral pleural effusion | Fever | Uncontrolled type 2 diabetes mellitus | Diarrhea | Oral thrush | Oropharyngeal dysphagia | Non-ST elevation MN (NSTEMI) | Intermittent atrial fibrillation | Hyperlipidem... Diagnosis: Melena Comment: Ordered: Office Visit Level 5 Est 62919; 11/20/16 9:05:00 [employer], Aspiration pneumonia | Bilateral pleural effusion | Fever | Uncontrolled type 2 diabetes mellitus | Diarrhea | Oral thrush | Oropharyngeal dysphagia | Non-ST elevation MN (NSTEMI) | Intermittent atrial fibrillation | Hyperlipidem... Diagnosis: Non-ST elevation MN (NSTEMI) Comment: Ordered: Office Visit Level 5 Est 72761; 11/20/16 9:05:00 [employer], Aspiration pneumonia | Bilateral pleural effusion | Fever | Uncontrolled type 2 diabetes mellitus | Diarrhea | Oral thrush | Oropharyngeal dysphagia | Non-ST elevation MN (NSTEMI) | Intermittent atrial fibrillation | Hyperlipidem... Diagnosis: Oral thrush Comment: Ordered: Office Visit Level 5 Est 94352; 11/20/16 9:05:00 [employer], Aspiration pneumonia | Bilateral pleural effusion | Fever | Uncontrolled type 2 diabetes mellitus | Diarrhea | Oral thrush | Oropharyngeal dysphagia | Non-ST elevation MN (NSTEMI) | Intermittent atrial fibrillation | Hyperlipidem... Diagnosis: Oropharyngeal dysphagia Comment: Ordered: Office Visit Level 5 Est 82973; 11/20/16 9:05:00 [employer], Aspiration pneumonia | Bilateral pleural effusion | Fever | Uncontrolled type 2 diabetes mellitus | Diarrhea | Oral thrush | Oropharyngeal dysphagia | Non-ST elevation MN (NSTEMI) | Intermittent atrial fibrillation | Hyperlipidem... Diagnosis: Uncontrolled type 2 diabetes mellitus Comment: Ordered: Office Visit Level 5 Est 42941; 11/20/16 9:05:00 [employer], Aspiration pneumonia | Bilateral pleural effusion | Fever | Uncontrolled type 2 diabetes mellitus | Diarrhea | Oral thrush | Oropharyngeal dysphagia | Non-ST elevation MN (NSTEMI) | Intermittent atrial fibrillation | Hyperlipidem... End of Orders ."
--- OUTSIDE RECORDS SUMMARY | 2017-11-03 13:03 | External Medical Summary | Referral Summary ---
:1925 Author [facility] Address [address] [place] [address] [place] [phone] Care Team Providers Name Role Phone Harry Guillen Primary Care Physician Encounter [facility] Date(s): 03/06/15 - 03/06/15 [facility] [address] [place] [phone] [place] Discharge Disposition: [...] type 2, Active uncontrolled(Confirmed) Weight loss(Confirmed) Active 76616? Allergies, Adverse Reactions, Alerts Substance Reaction Severity Status amoxicillin acute interstitial nephritis Active Bee Stings Active vancomycin rash, itching Active Medications Aspirin Low Dose 81 mg, Oral, Daily, 0 Refill(s) Start Date: 04/19/14 Status: Orderedfamotidine 20 mg oral tablet 20 mg 1 tabs, Oral, BID, as needed for itching, # 60 tabs, 5 Refill(s), Pharmacy : [facility] #[id number], 1 tabs Oral BID,PRN:as needed for itching Start Date: 05/01/15 Status: Orderedferrous sulfate 325 mg, Oral, BID, 0 Refill(s) Start Date: 04/19/14 Status: Orderedfolic acid 0.8 mg oral tablet 1 tabs, Oral, Daily, 0 Refill(s) Start Date: 04/19/14 Status: OrderedJanuvia 50 mg oral tablet See Instructions, TAKE ONE TABLET BY MOUTH DAILY, # 30 tabs, 2 Refill(s), eRx: [facility] #[id number], TAKE ONE TABLET BY MOUTH DAILY Start Date: 08/16/15 Status: OrderedLasix 40 mg oral tablet 1 tabs, Oral, Daily, # 90 tabs, 3 Refill(s), Pharmacy: [facility] #[id number] , 1 tabs Oral Daily,x90 days Start Date: 03/06/15 Stop Date: 02/29/16 Status: Orderedlisinopril 5 mg oral tablet 1 tabs, Oral, Daily, # 90 tabs, 3 Refill(s), Pharmacy: [facility] #[id number] , 1 tabs Oral Daily Start Date: 03/06/15 Status: Orderedsimvastatin 20 mg oral tablet 1 tabs, Oral, Bedtime (once a day), # 90 tabs, 3 Refill(s), Pharmacy: [facility] #[id number], 1 tabs Oral Bedtime (once a day),x90 [...] day), # 90 tabs, 3 Refill(s), Pharmacy: [facility] #[id number], 1 tabs Oral Bedtime (once a day),x90 [...] 07/18/2005 Document Revised: 01/03/2013 Document Reviewed: 06/08/2012 [facility] Patient Information 2014 [employer]. No follow up information was provided. Extracted [...] Orders Ordered Office Visit Level 5 Est 28608: Paring/Cutting Hypkeratotic Lesion, Single [address]259: Prescriptions Prescribed Januvia 50 mg oral tablet: [...] Comment: Ordered: Office Visit Level 5 Est 81903; 03/06/15 11:21:00 CDT, Foot callus | Diabetic foot ulcer associated with type 2 diabetes mellitus | Controlled type 2 diabetes mellitus without com plication | Hyperlipidemia | CKD (chronic kidney disease) stage 3, GFR 30-59 ml /min Diagnosis: Controlled type 2 diabetes mellitus without complication Comment: Ordered: Office Visit Level 5 Est 51772; 03/06/15 11:21:00 CDT, Foot callus | Diabetic foot ulcer associated with type 2 diabetes mellitus | Controlled type 2 diabetes mellitus without com plication | Hyperlipidemia | CKD (chronic kidney disease) stage 3, GFR 30-59 ml /min Diagnosis: Diabetic foot ulcer associated with type 2 diabetes mellitus Comment: Ordered: Paring/Cutting Hypkeratotic Lesion, Single 06258; 11:21:00 CDT, 1, Foot callus | Diabetic foot ulcer associated with type 2 diabetes mellitus Office Visit Level 5 Est 03995; 03/06/15 11:21:00 CDT, Foot callus | Diabetic foot ulcer associated with type 2 diabetes mellitus | Controlled type 2 diabetes mellitus witho ut complication | Hyperlipidemia | CKD (chronic kidney disease) stage 3, GFR 30 -59 ml/min Diagnosis: Foot callus Comment: Ordered: Paring/Cutting Hypkeratotic Lesion, Single 86247; 11:21:00 CDT, 1, Foot callus | Diabetic foot ulcer associated with type 2 diabetes mellitus Office Visit Level 5 Est 36087; 03/06/15 11:21:00 CDT, Foot callus | Diabetic foot ulcer associated with type 2 diabetes mellitus | Controlled type 2 diabetes mellitus witho ut complication | Hyperlipidemia | CKD (chronic kidney disease) stage 3, GFR 30 -59 ml/min Diagnosis: Hyperlipidemia Comment: Ordered: Office Visit Level 5 Est 75429; 03/06/15 11:21:00 CDT, Foot callus | Diabetic foot ulcer associated with type 2 diabetes mellitus | Controlled type 2 diabetes mellitus without com plication | Hyperlipidemia | CKD (chronic kidney disease) stage 3, GFR 30-59 ml /min Diagnosis: Hypertension Comment: Ordered: Office Visit Level 5 Est 86349; 03/06/15 11:21:00 CDT, Foot callus | Diabetic foot ulcer associated with type 2 diabetes mellitus | Controlled type 2 diabetes mellitus without com plication | Hyperlipidemia | CKD (chronic kidney disease) stage 3, GFR 30-59 ml /min Diagnosis: Lymphedema Comment: Ordered: Office Visit Level 5 Est 45544; 03/06/15 11:21:00 CDT, Foot callus | Diabetic foot ulcer associated with type 2 diabetes mellitus | Controlled type 2 diabetes mellitus without com plication | Hyperlipidemia | CKD (chronic kidney disease) stage 3, GFR 30-59 ml /min Diagnosis: Venous stasis dermatitis Comment: Ordered: Office Visit Level 5 Est 57659; 03/06/15 11:21:00 CDT, Foot callus | Diabetic foot ulcer associated with type 2 diabetes mellitus | Controlled type 2 diabetes mellitus without com plication | Hyperlipidemia | CKD (chronic kidney disease) stage 3, GFR 30-59 ml /min Additional Orders: Comment: Ordered: Januvia 50 mg oral tablet,1 tabs, Oral, Daily, # 30 tabs , 3 Refill(s), Pharmacy: [facility] #[id number] Ordered: Lasix 40 mg oral tablet,1 tabs, Oral, Daily, # 90 tabs, 3 Refill(s), Pharmacy: [facility] #[id number], 1 tabs Oral Daily,x90 days Ordered: Zantac 300 oral tablet,1 tabs, Oral, Bedtime (once a day) , # 90 tabs, 3 Refill(s), Pharmacy: [facility] #[id number], 1 tabs Oral Bedtime (once a day),x90 days Ordered: lisinopril 5 mg oral tablet,1 tabs, Oral, Daily, # 90 tabs, 3 Refill(s), Pharmacy: [facility] #[id number], 1 tabs Oral Daily Ordered: simvastatin 20 mg oral tablet,1 tabs, Oral, Bedtime ( once a day), # 90 tabs, 3 Refill(s), Pharmacy: [facility] #[id number], 1 tabs Oral Bedtime (once a day),x90 days End of Orders ."
[2017-11-03] MEDS: SALINE FLUSH 10ml SYRINGE IVF PRN ×2 (13:35→14:35)
--- NOTE | 2017-11-03 13:41 | XRay Report ---
Indication: low grade temp rhonchi PROCEDURE: XR chest 1V: Encounter: Initial Comparison: March 31, 2017 and October 19, 2016 Findings: Persistent or recurrent airspace consolidation in both lower lobes with small pleural effusions. Upper lung michelle are clear. No pneumothorax. Cardiac silhouette remains mildly enlarged but unchanged. Mediastinal contours are stable. Pulmonary vascularity is normal. Old right rib deformities. Impression: Lower lobe atelectasis, pneumonia or aspiration with small effusions. .
[2017-11-03] MEDS ORDERED: LEVOFLOXACIN PB 750 MG/150 ML BAG IV SCH ×2 (14:00→14:28)
[2017-11-03] MEDS ORDERED: LEVOFLOXACIN PB 500 MG/100 ML BAG IV SCH (14:15)
[2017-11-03 14:56] VITALS: BMI 22.8
[2017-11-03] MEDS: NS 1,000 ML IV SCH (15:06)
[2017-11-03] MEDS ORDERED: ALBUTEROL/IPRATROPIUM 2.5mg-0.5mg/3ml NEB AEROSOL PRN (15:54)
[2017-11-03] MEDS: CEFEPIME 1 GM in NS 100 ML IV SCH ×4 (15:57→21:59)
--- NOTE | 2017-11-03 16:19 | History & Physical Report ---
History of Present Illness Date: 11/03/17 Chief complaint: pneumonia HPI: Ronaldo Philip is a pleasant 89-year-old resident of [facility] who follows with Dr. Ramirez. He presented to [facility] ED today after nursing expressed concern about productive cough with low grade fever and questionable aspiration at the [facility]. Upon arrival, he states that he feels fine and is unaware why he is here. While in the ED, labs were obtained and revealed mild leukocytosis ( WBC 11.7) and mild anemia (hgb 13.2). Chest x-ray revealed lower lobe atelectasis vs. pneumonia vs. aspiration with small effusion. He recently began taking more foods orally as he has a history of dysphagia with G-tube in place and nursing expressed concerns about possible aspiration. He reports that he has had "walking pneumonia" per Dr. Ramirez for "months and months" and "feels fine." Vital signs in the ED revealed temperature at 99 with tachypnea at 24 and reported hypoxia requiring 2L oxygen. He does not have a history of oxygen dependence. Due to his pneumonia with reported hypoxia, Dr. Carcamo was consulted and he was admitted to inpatient status for further evaluation, close respiratory monitoring, and IV antibiotics. His length of stay is expected to exceed more than 2 over nights. Review of Systems All systems PM: 10-point ROS was reviewed, no additional remarkable complaints except - Constitutional Constitutional: Present: fever(s). Absent: chills, fatigue, headache(s), lethargy, malaise, night sweats, weakness - EENVT Eyes: Absent: change in vision, diplopia, photophobia Ears: Absent: ear pain Balance: Absent: falling to one side Nose: Absent: nosebleeds Mouth/Throat: Present: dry mouth. Absent: sore throat, sores, painful swallowing - Cardiovascular Cardiovascular: Absent: chest pain, palpitations, syncope, dyspnea on exertion, orthopnea, edema Rhythm: Present: regular rhythm Vascular: Absent: pallor of an extermity, pedal edema - Respiratory Respiratory: Present: cough, chest congestion. Absent: dyspnea, hemoptysis, dyspnea on exertion, wheezing, pain on inspiration - Gastrointestinal Gastrointestinal: Absent: abdominal pain, diarrhea, hematochezia, melena, nausea , vomiting - Genitourinary Genitourinary: Absent: dysuria, flank pain, hematuria - Musculoskeletal Musculoskeletal: Absent: back pain, deformity, limited range of motion, muscle weakness - Integumentary/Breasts Integumentary: Absent: lesions, rash - Neurological Neurological: Absent: abnormal movements, convulsions, dizziness, headache(s), weakness - Psychiatric Psychiatric: Absent: behavioral changes, hallucinations - Endocrine Endocrine: Absent: flushing, palpitations - Hematologic/Lymphatic Hematologic/Lymphatic: Absent: easy bruising - Allergic/Immunologic Allergic/Immunologic: Absent: seasonal rhinorrhea Past Medical History Patient Stated Medical History Hypertension. Dysphagia. CHF. Degenerative arthritis. Type 2 Diabetes. Hyperlipidemia. Glaucoma. GERD. Hard of hearing. History of prostate cancer - 1988. Surgical History: 1. Tonsillectomy - 1943. 2. Appedenctomy. 3. Hernia repair. 4. ORIF left hip - 09/2016, Dr. Maciel. 5. Prostatectomy - 1988. Family History Updates: Mother - age 75, cirrhosis. Father - , age 78, unknown cause. Older sister - , age 91, unknown cause. Younder sister - , age 82, complications from renal surgery. - Social History Smoking status: Former smoker (quit 1987) Substance use type: does not use Alcohol intake frequency: does not drink Housing: [facility] Household members: none Current occupational status: retired Does patient use chewing tobacco?: No Current residence: [facility] Social history: PCP - Dr. Ramirez. Medications Home Medications Medication Instructions Recorded Confirmed Type Ferrous Sulfate 220 mg GT DAILY #0 12/09/16 11/03/17 History Pyridoxine HCl (Vitamin B6) 100 mg GT DAILY #0 12/09/16 11/03/17 History [Pyridoxine HCl] Thiamine HCl 100 mg GT DAILY #0 12/09/16 11/03/17 History Cholecalciferol (Vitamin D3) 2,000 unit GT DAILY 03/28/17 11/03/17 History [Vitamin D3] Insulin Glargine [Lantus] 10 unit SQ HS 03/28/17 11/03/17 History Lactobacillus Rhamnosus GG 1 each GT DAILY 03/28/17 11/03/17 History [Culturelle] Amiodarone [Pacerone] 100 mg GT DAILY 11/03/17 11/03/17 History Bumetanide Tab [Bumex Tab] 1 mg GT DAILY 11/03/17 11/03/17 History Dorzolamide/Timolol Eye Drops 1 drop RIGHT EYE BID 11/03/17 11/03/17 History [Cosopt Ocumeter Plus] Escitalopram Oxalate [Lexapro] 5 mg GT DAILY 11/03/17 11/03/17 History Famotidine [Pepcid] 20 mg GT BID 11/03/17 11/03/17 History Fluticasone Nasal [place] [Flonase] 2 spray EA NOSTRIL PRN PRN 11/03/17 11/03/17 History Folic Acid [Folate] 1 mg GT DAILY 11/03/17 11/03/17 History Latanoprost [Latanoprost] 1 drop EACH EYE HS 11/03/17 11/03/17 History Levothyroxine Tab [Synthroid] 200 mcg GT DAILY 11/03/17 11/03/17 History Loperamide [Imodium] 4 mg PO QID PRN 11/03/17 11/03/17 History Allergies Allergy/AdvReac Type Severity Reaction Status Date / Time amoxicillin Allergy Unknown Verified 11/03/17 12:19 vancomycin Allergy Unknown Verified 11/03/17 12:19 Exam Vital Signs: Temperature 97.3 F 11/03/17 15:23 Pulse Rate 67 11/03/17 15:23 Respiratory Rate 16 11/03/17 15:23 Blood Pressure 156/74 H 11/03/17 15:23 Pulse Oximetry 96 11/03/17 15:23 Telemetry Rhythm: Sinus Rhythm Height/Weight/BMI: Height 5 ft 8 in Weight 149 lb 14.629 oz Body Mass Index 22.8 Comments: Patient resting in bed, watching TV at very loud volume due to hearing deficit. - Constitutional Present: no acute distress, well nourished, well developed, thin, cooperative - Routine HEENT Exam Head: Present: normocephalic, atraumatic Eye: Present: PERRL. Absent: conjunctival icterus ENT: Present: mucous membranes moist, oropharynx clear - Routine Neck Exam Present: supple, full ROM, trachea midline - Routine Chest/Breast/Axilla Exam Chest wall: Absent: pacemaker - Routine Respiratory Exam Absent: respiratory distress, wheezes Comments: decreased breath sound in bilateral lower bases; weak, productive cough on exam ; breathing easily on room air; no conversational dyspnea. - Routine Cardiovascular Exam Present: RRR, S1, S2, murmur - Routine Abdominal Exam Present: soft, normoactive bowel sounds, non distended, non tender. Absent: guarding - Routine Extremities Exam Present: edema (trace), non tender, full ROM, pulses intact - Routine Back/Spine/Pelvis Exam Back/Spine: Present: full ROM, kyphosis. Absent: vertebral tenderness - Routine Skin Exam Present: intact, dry, warm. Absent: jaundice Comments: afebrile - Routine Neurological Exam Present: alert, oriented X3, moving all extremities, hearing grossly intact, normal speech - Routine Psychiatric Exam Present: cooperative Results - Labs CBC & Chem 7: 11/03/17 13:23 11/03/17 13:23 Microbiology Results: Microbiology 11/03/17 14:30 Peripheral/Iv Start Blood Culture - Preliminary Culture Initiated - Results Pending 11/03/17 14:34 Peripheral/Iv Start Blood Culture - Preliminary Culture Initiated - Results Pending - Imaging and Cardiology Chest x-ray Status: image reviewed by me Additional comments: Date of Exam: 11/03/17 Type of Exam(s): XR chest 1V Findings: Persistent or recurrent airspace consolidation in both lower lobes with small pleural effusions. Upper lung michelle are clear. No pneumothorax. Cardiac silhouette remains mildly enlarged but unchanged. Mediastinal contours are stable. Pulmonary vascularity is normal. Old right rib deformities. Impression: Lower lobe atelectasis, pneumonia or aspiration with small effusions. Assessment and Plan (1) HCAP (healthcare-associated pneumonia) Current visit: Yes Status: Acute (2) Dysphagia Current visit: No Status: Chronic Assessment and Plan: Assessment HCAP - present on admission, acute. Leukocytosis - present on admission (WBC 11.7). Anemia - present on admission (Hgb 13.2). Elevated LFTs - present on admission (AST 70, ALT 124). Hypertension. Dysphagia. CHF. Degenerative arthritis. Type 2 Diabetes. Hyperlipidemia. Glaucoma. GERD. Hard of hearing. History of prostate cancer - 1988. Plan - 11/03/17 (Admission) Admit to inpatient status under the care of Dr. Carcamo and hospitalist service for treatment of HCAP. Respiratory panel was negative. Initiate Cefepime 1g Q6H and Levaquin 750mg daily for antimicrobial treatment of HCAP. Will try and obtain sputum culture. NS at 75cc/hr for gentle hydration. Monitor daily weight and urinary output closely. Keep patient NPO due to concerns of possible aspiration and dysphagia. Speech consulted for dysphagia screen and will provide diet recommendations. Patient has functional GT present which may be used for medications and nutritional supplement. Patient was initially reported to be hypoxic while in ED requiring 2L NC. Oxygen as needed to maintain SAO2 >90%, weaning as able. Encourage incentive spirometry for pulmonary toileting. Initiate Mucinex for mucolytic effect. DuoNeb QID and PRN as needed. Anemia appears to be chronic based on prior medical records. Will continue home medications including B vitamins, folate and iron. Continue home medications for a-fib and hypertension. Monitor closely on telemetry. Blood pressure noted to be elevated in ED. Will continue to monitor blood pressure closely. Monitor BGMs closely given history of diabetes which is currently diet controlled. Med reconciliation reveals no current diabetes medications. LFTs elevated on admission, though specimen was hemolyzed. Will continue to monitor. Recheck labs in AM to monitor blood counts, electrolytes and renal function. Upon discharge, patient's care will be returned to his PCP, Dr. Ramirez. Patient requests to be a FULL CODE at this time. DVT Prophylaxis: SCD's GI Prophylaxis: Pepcid Resuscitation Status: Full Code - Time spent with patient Time with patient PN: 70 minutes - Physician Narrative Physician: Wilfredo Carcamo MD Narrative: Date: 11/03/17 Time: 1800 Have independently interviewed and examined pt. Chart reviewed. Case discussed with ED provider and my PA. Care plan developed with my supervision; agree with above. Presents to ED secondary to cough and low grade temp. Has chronic dysphagia on tube feeling. Recently started taking oral in. Feels his eating ability is okay- does not feel he chokes or gags on foods. Denies pain with breathing. No sputum. Not feeling congested or short of air. No nausea or ab pain. Bowels stable. Urine output stable. Evaluated in ED. CXR showing infiltrate. WBC with mild elevation. Initially needing O2 in ED for support. With patients infiltrate (potentially aspiration as recently started oral intake) Dr Carcamo notified for admission to improve respiratory symptoms. Lungs: decreased bilaterally, basilar blunting. Upper air way noises. CV: regular MSE: awake alert Plan: Will place in inpatient admission for treatment of HCAP (possible aspiration pneumonia). Levaquin and cefepime for coverage - allergic to Vancomycin. IVF for hydration support. Recheck CXR in am as pneumonia may blossom with hydration. Speech to eval swallow function. Continue Tube feeding. Monitor lab. Care to return to Dr Guillen at time of discharge from [facility]. Hospital Course Summary Disclaimer: The visit summary below is not to be considered part of the above Progress Note. Hospital Course: Plan - 11/03/17 (Admission) Admit to inpatient status under the care of Dr. Carcamo and hospitalist service for treatment of HCAP. Respiratory panel was negative. Initiate Cefepime 1g Q6H and Levaquin 750mg daily for antimicrobial treatment of HCAP. Will try and obtain sputum culture. NS at 75cc/hr for gentle hydration. Monitor daily weight and urinary output closely. Keep patient NPO due to concerns of possible aspiration and dysphagia. Speech consulted for dysphagia screen and will provide diet recommendations. Patient has functional GT present which may be used for medications and nutritional supplement. Patient was initially reported to be hypoxic while in ED requiring 2L NC. Oxygen as needed to maintain SAO2 >90%, weaning as able. Encourage incentive spirometry for pulmonary toileting. Initiate Mucinex for mucolytic effect. DuoNeb QID and PRN as needed. Anemia appears to be chronic based on prior medical records. Will continue home medications including B vitamins, folate and iron. Continue home medications for a-fib and hypertension. Monitor closely on telemetry. Blood pressure noted to be elevated in ED. Will continue to monitor blood pressure closely. Monitor BGMs closely given history of diabetes which is currently diet controlled. Med reconciliation reveals no current diabetes medications. LFTs elevated on admission, though specimen was hemolyzed. Will continue to monitor. Recheck labs in AM to monitor blood counts, electrolytes and renal function. Upon discharge, patient's care will be returned to his PCP, Dr. Ramirez. Patient requests to be a FULL CODE at this time.
[2017-11-03] MEDS: ALBUTEROL/IPRATROPIUM 2.5mg-0.5mg/3ml NEB AEROSOL SCH (19:33)
[2017-11-03] MEDS ORDERED: GUAIFENESIN LA 600 MG TABLET PO SCH (21:00)
[2017-11-03] MEDS ORDERED: FAMOTIDINE 20 MG TABLET GT SCH (21:00)
[2017-11-03] MEDS: INSULIN GLARGINE 100unit/ml INJECTION SQ SCH (21:58)
[2017-11-03] MEDS: FAMOTIDINE 40 MG/5 ML ORAL LIQUID GT SCH (21:58)
[2017-11-03] MEDS: LATANOPROST 0.005% EYE DROPS 2.5ml EACH EYE SCH (21:58)
[2017-11-03] MEDS: GUAIFENESIN 200mg/10ml ORAL LIQUID GT SCH (22:20)
[2017-11-04] MEDS: CEFEPIME 1 GM in NS 100 ML IV SCH ×4 (03:21→22:01)
[2017-11-04] MEDS: LEVOTHYROXINE 200 MCG TABLET GT SCH (05:51)
[2017-11-04] MEDS: NS 1,000 ML IV SCH (05:52)
--- NOTE | 2017-11-04 08:43 | XRay Report ---
INDICATION: F/U infiltrate PROCEDURE: CHEST 2-VIEWS UPRIGHT (PA & LAT) Encounter: Initial COMPARISON: November 03, 2017 FINDINGS: Aeration of the right lower lobe has slightly improved. Small pleural effusions remain bilaterally without significant change. No new or worsening airspace disease. No pneumothorax. Heart size and mediastinal contours are stable. Pulmonary vascularity is less prominent. Old rib fractures. Impression: Improving aeration of the right lower lobe with persistent small effusions. .
[2017-11-04] MEDS: AMIODARONE 200 MG TABLET GT SCH (09:12)
[2017-11-04] MEDS: ESCITALOPRAM 10 MG TABLET PO SCH (09:13)
[2017-11-04] MEDS: PYRIDOXINE 100mg TABLET GT SCH (09:13)
[2017-11-04] MEDS: FOLIC ACID 1 MG TABLET GT SCH (09:14)
[2017-11-04] MEDS: GUAIFENESIN 200mg/10ml ORAL LIQUID GT SCH ×2 (09:14→22:02)
[2017-11-04] MEDS: FERROUS SULFATE 220 MG/5 ML ORAL LIQUID GT SCH (09:14)
[2017-11-04] MEDS: LACTOBACILLUS PEDIATRIC PACKET GT SCH (09:14)
[2017-11-04] MEDS: ALBUTEROL/IPRATROPIUM 2.5mg-0.5mg/3ml NEB AEROSOL SCH ×2 (10:42→20:00)
[2017-11-04] MEDS: LEVOFLOXACIN PB 750 MG/150 ML BAG IV SCH (11:28)
--- NOTE | 2017-11-04 20:50 | Progress Note ---
- Date 11/04/17 Subjective: F/U: HCAP (possible aspiration) Leukocytosis Doing okay this evening. Breathing feels like it's improving-less cough/ congestion. No pain with breathing. No f/c. Denies nausea or ab pain. Tolerating TF. Arthritic pain to knees. Objective Vital signs: Temperature 97.3 F 11/04/17 15:03 Pulse Rate 74 11/04/17 15:03 Respiratory Rate 18 11/04/17 20:00 Blood Pressure 149/72 H 11/04/17 15:03 Pulse Oximetry 92 11/04/17 15:03 Height/Weight/BMI: Height 1.73 m Weight 70.4 kg Body Mass Index 22.8 - Constitutional Present: well nourished, well developed, cooperative - Routine HEENT Exam Head: Present: normocephalic, atraumatic Eye: Present: EOMI, PERRL ENT: Present: mucous membranes moist - Routine Respiratory Exam Present: decreased breath sounds. Absent: rales, respiratory distress, rhonchi , wheezes, crackles - Routine Cardiovascular Exam Present: RRR, no murmur - Routine Abdominal Exam Present: soft, normoactive bowel sounds, non distended, non tender - Routine Extremities Exam Present: edema (+1 BLE ), pulses intact. Absent: cyanosis, clubbing - Routine Musculoskeletal Exam Musculoskeletal: Present: no clubbing or cyanosis - Routine Skin Exam Present: dry, warm - Routine Neurological Exam Present: alert, oriented X3, CN II-XII intact, vision grossly intact, hearing grossly intact. Absent: altered mental status - Routine Psychiatric Exam Present: normal affect, normal thought process, cooperative Results - Labs CBC & Chem 7: 11/04/17 04:38 11/04/17 04:38 Microbiology Results: Microbiology 11/03/17 16:58 Sputum, Expectorated Gram Stain - Final 11/03/17 16:58 Sputum, Expectorated Sputum Culture - Preliminary No Growth After 1 Day 11/03/17 14:34 Peripheral/Iv Start Blood Culture - Preliminary No Growth After 1 Day 11/03/17 14:30 Peripheral/Iv Start Blood Culture - Preliminary No Growth After 1 Day Assessment and Plan (1) HCAP (healthcare-associated pneumonia) Current visit: Yes Status: Acute (2) Dysphagia Current visit: No Status: Chronic Assessment and Plan: Assessment HCAP - present on admission, acute. Leukocytosis - present on admission (WBC 11.7). Anemia - present on admission (Hgb 13.2). Elevated LFTs - present on admission (AST 70, ALT 124). Hypertension. Dysphagia. CHF. Degenerative arthritis. Type 2 Diabetes. Hyperlipidemia. Glaucoma. GERD. Hard of hearing. History of prostate cancer - 1988. Plan Clinically improving. Notes less cough/congestion. WBC normalized. Continue with Cefepime and Levaquin for antimicrobial coverage. Continue breathing treatments. D/C IVF as tolerating TF. Discussed with speech about his swallow function - very poor, patient not wanting to follow speech recommendations (want real food). Recheck lab in am. Case discussed with Speech therapy and CM. Time spent with patient care 25 minutes. DVT Prophylaxis: SCD's Resuscitation Status: Full Code - Physician Narrative Physician: Wilfredo Carcamo MD Narrative: Date: 11/04/17 Time: 2046 Hospital Course Summary Disclaimer: The visit summary below is not to be considered part of the above Progress Note. Hospital Course: Plan - 11/03/17 (Admission) Admit to inpatient status under the care of Dr. Carcamo and hospitalist service for treatment of HCAP. Respiratory panel was negative. Initiate Cefepime 1g Q6H and Levaquin 750mg daily for antimicrobial treatment of HCAP. Will try and obtain sputum culture. NS at 75cc/hr for gentle hydration. Monitor daily weight and urinary output closely. Keep patient NPO due to concerns of possible aspiration and dysphagia. Speech consulted for dysphagia screen and will provide diet recommendations. Patient has functional GT present which may be used for medications and nutritional supplement. Patient was initially reported to be hypoxic while in ED requiring 2L NC. Oxygen as needed to maintain SAO2 >90%, weaning as able. Encourage incentive spirometry for pulmonary toileting. Initiate Mucinex for mucolytic effect. DuoNeb QID and PRN as needed. Anemia appears to be chronic based on prior medical records. Will continue home medications including B vitamins, folate and iron. Continue home medications for a-fib and hypertension. Monitor closely on telemetry. Blood pressure noted to be elevated in ED. Will continue to monitor blood pressure closely. Monitor BGMs closely given history of diabetes which is currently diet controlled. Med reconciliation reveals no current diabetes medications. LFTs elevated on admission, though specimen was hemolyzed. Will continue to monitor. Recheck labs in AM to monitor blood counts, electrolytes and renal function. Upon discharge, patient's care will be returned to his PCP, Dr. Ramirez. Patient requests to be a FULL CODE at this time. 11/04/17 Clinically improving. Notes less cough/congestion. WBC normalized. Continue with Cefepime and Levaquin for antimicrobial coverage. Continue breathing treatments. D/C IVF as tolerating TF. Discussed with speech about his swallow function - very poor, patient not wanting to follow speech recommendations (want real food). Recheck lab in am.
[2017-11-04] MEDS: LATANOPROST 0.005% EYE DROPS 2.5ml EACH EYE SCH (22:02)
[2017-11-04] MEDS: FAMOTIDINE 40 MG/5 ML ORAL LIQUID GT SCH (22:03)
[2017-11-04] MEDS: INSULIN GLARGINE 100unit/ml INJECTION SQ SCH (22:03)
[2017-11-05] MEDS: CEFEPIME 1 GM in NS 100 ML IV SCH ×4 (04:43→22:37)
[2017-11-05] MEDS: LEVOTHYROXINE 200 MCG TABLET GT SCH (06:36)
[2017-11-05] MEDS: ALBUTEROL/IPRATROPIUM 2.5mg-0.5mg/3ml NEB AEROSOL SCH ×2 (07:22→21:25)
[2017-11-05] MEDS: ESCITALOPRAM 10 MG TABLET PO SCH (09:46)
[2017-11-05] MEDS: FOLIC ACID 1 MG TABLET GT SCH (09:46)
[2017-11-05] MEDS: AMIODARONE 200 MG TABLET GT SCH (09:46)
[2017-11-05] MEDS: PYRIDOXINE 100mg TABLET GT SCH (09:46)
[2017-11-05] MEDS: LACTOBACILLUS PEDIATRIC PACKET GT SCH (09:46)
[2017-11-05] MEDS: GUAIFENESIN 200mg/10ml ORAL LIQUID GT SCH ×2 (09:48→20:53)
[2017-11-05] MEDS: FERROUS SULFATE 220 MG/5 ML ORAL LIQUID GT SCH (09:48)
[2017-11-05] MEDS: LEVOFLOXACIN PB 750 MG/150 ML BAG IV SCH (12:48)
--- NOTE | 2017-11-05 13:59 | Progress Note ---
- Date 11/05/17 Subjective: Mr Philip is seen today in follow up. He is resting in bed and reports he feels like he needs to have "diarrhea". Nursing reports he did have a liquid stool x1 overnight. C-Diff was negative. He denies having abdominal pain or vomiting. Tolerating tube feedings. Breathing on room air without distress. Objective Vital signs: Temperature 97.3 F 11/05/17 07:56 Pulse Rate 75 11/05/17 07:56 Respiratory Rate 20 11/05/17 07:56 Blood Pressure 130/67 11/05/17 07:56 Pulse Oximetry 93 11/05/17 07:56 Height/Weight/BMI: Height 1.73 m Weight 69.1 kg Body Mass Index 22.8 - Constitutional Present: no acute distress, well nourished, well developed - Routine HEENT Exam Eye: Present: EOMI ENT: Present: mucous membranes moist, dentition normal - Routine Respiratory Exam Present: diminished air movement - Routine Cardiovascular Exam Present: RRR, S1, S2. Absent: murmur - Routine Abdominal Exam Present: soft, normoactive bowel sounds, non distended. Absent: tenderness - Routine Extremities Exam Present: normal capillary refill - Routine Skin Exam Present: intact, dry, warm - Routine Neurological Exam Present: alert, oriented X3, CN II-XII intact - Routine Lymphatic Exam Lymphatic: Absent: adenopathy - Routine Psychiatric Exam Present: cooperative Results - Labs CBC & Chem 7: 11/05/17 04:42 11/05/17 04:43 Microbiology Results: Microbiology 11/03/17 16:58 Sputum, Expectorated Gram Stain - Final 11/03/17 16:58 Sputum, Expectorated Sputum Culture - Preliminary No Growth After 1 Day 11/03/17 14:34 Peripheral/Iv Start Blood Culture - Preliminary No Growth After 1 Day 11/03/17 14:30 Peripheral/Iv Start Blood Culture - Preliminary No Growth After 1 Day Assessment and Plan (1) HCAP (healthcare-associated pneumonia) Current visit: Yes Status: Acute (2) Dysphagia Current visit: No Status: Chronic Assessment and Plan: Assessment HCAP - present on admission, acute. Leukocytosis - present on admission (WBC 11.7). Anemia - present on admission (Hgb 13.2). Elevated LFTs - present on admission (AST 70, ALT 124). Hypertension. Dysphagia. CHF. Degenerative arthritis. Type 2 Diabetes. Hyperlipidemia. Glaucoma. GERD. Hard of hearing. History of prostate cancer - 1988. Plan Two episodes of loose stool. C- Diff is negative. Encourage Culturelle and will add Questran as needed Continue with Cefepime and Levaquin for antimicrobial tx of HCAP. Tolerating tube feedings without difficulty. Chronic swallowing is poor Blood sugars appear to be well controlled. Continue to follow daily electrolytes Hopeful for discharge in the next 1-2 days DVT Prophylaxis: SCD's Resuscitation Status: Full Code - Time spent with patient Time with patient PN: 25 minutes - Physician Narrative Physician: Wilfredo Carcamo MD Narrative: Date: 11/05/17 Time: 1353 Have independently interviewed and examined pt. Chart reviewed. Case discussed with CM and my ASSISTANT PRESSMAN. Care plan developed with my supervision; agree with above. Stools loose today-feel fullness and rumbling in belly. Not nauseated. Breathing about the same. Notes some 'popcorn' breathing at times. No pain with breathing. Neck feels stiff from being in bed. Lungs: decreased, upper airway noises. CV: regular AB: soft nt/nd +BS MSE: awake alert appropriate Plan: Stool checked for C diff and negative. Continue with antibiotics and neb treatments. LFT normalized. Will restart Bumex tomorrow. Recheck lab in am. Clinically improving, possible discharge tomorrow if continues to do well. Hospital Course Summary Disclaimer: The visit summary below is not to be considered part of the above Progress Note. Hospital Course: Plan - 11/03/17 (Admission) Admit to inpatient status under the care of Dr. Carcamo and hospitalist service for treatment of HCAP. Respiratory panel was negative. Initiate Cefepime 1g Q6H and Levaquin 750mg daily for antimicrobial treatment of HCAP. Will try and obtain sputum culture. NS at 75cc/hr for gentle hydration. Monitor daily weight and urinary output closely. Keep patient NPO due to concerns of possible aspiration and dysphagia. Speech consulted for dysphagia screen and will provide diet recommendations. Patient has functional GT present which may be used for medications and nutritional supplement. Patient was initially reported to be hypoxic while in ED requiring 2L NC. Oxygen as needed to maintain SAO2 >90%, weaning as able. Encourage incentive spirometry for pulmonary toileting. Initiate Mucinex for mucolytic effect. DuoNeb QID and PRN as needed. Anemia appears to be chronic based on prior medical records. Will continue home medications including B vitamins, folate and iron. Continue home medications for a-fib and hypertension. Monitor closely on telemetry. Blood pressure noted to be elevated in ED. Will continue to monitor blood pressure closely. Monitor BGMs closely given history of diabetes which is currently diet controlled. Med reconciliation reveals no current diabetes medications. LFTs elevated on admission, though specimen was hemolyzed. Will continue to monitor. Recheck labs in AM to monitor blood counts, electrolytes and renal function. Upon discharge, patient's care will be returned to his PCP, Dr. Ramirez. Patient requests to be a FULL CODE at this time. 11/04/17 Clinically improving. Notes less cough/congestion. WBC normalized. Continue with Cefepime and Levaquin for antimicrobial coverage. Continue breathing treatments. D/C IVF as tolerating TF. Discussed with speech about his swallow function - very poor, patient not wanting to follow speech recommendations (want real food). Recheck lab in am. 11/05/17 Two episodes of loose stool. C- Diff is negative. Encourage Culturelle and will add Questran as needed Continue with Cefepime and Levaquin for antimicrobial tx of HCAP. Tolerating tube feedings without difficulty. Chronic swallowing is poor Blood sugars appear to be well controlled. Continue to follow daily electrolytes Hopeful for discharge in the next 1-2 days
[2017-11-05] MEDS ORDERED: CHOLESTYRAMINE LIGHT 4 G PACKET PO PRN (14:00)
[2017-11-05] MEDS: SALINE FLUSH 10ml SYRINGE IVF PRN ×3 (17:12→23:46)
[2017-11-05] MEDS: LATANOPROST 0.005% EYE DROPS 2.5ml EACH EYE SCH (20:53)
[2017-11-05] MEDS: FAMOTIDINE 40 MG/5 ML ORAL LIQUID GT SCH (20:55)
[2017-11-05] MEDS: INSULIN GLARGINE 100unit/ml INJECTION SQ SCH (21:01)
[2017-11-06] MEDS: SALINE FLUSH 10ml SYRINGE IVF PRN (04:40)
[2017-11-06] MEDS ORDERED: NS FLUSH BAG 500ml IV PRN (04:41)
[2017-11-06] MEDS: CEFEPIME 1 GM in NS 100 ML IV SCH ×3 (04:42→14:24)
[2017-11-06] MEDS ORDERED: BUMETANIDE 1 MG TABLET GT SCH (09:00)
[2017-11-06] MEDS: ALBUTEROL/IPRATROPIUM 2.5mg-0.5mg/3ml NEB AEROSOL SCH (09:30)
[2017-11-06] MEDS: LACTOBACILLUS PEDIATRIC PACKET GT SCH (10:02)
[2017-11-06] MEDS: GUAIFENESIN 200mg/10ml ORAL LIQUID GT SCH (10:03)
[2017-11-06] MEDS: FERROUS SULFATE 220 MG/5 ML ORAL LIQUID GT SCH (10:03)
[2017-11-06] MEDS: ESCITALOPRAM 10 MG TABLET PO SCH (10:03)
[2017-11-06] MEDS: FOLIC ACID 1 MG TABLET GT SCH (10:03)
[2017-11-06] MEDS: AMIODARONE 200 MG TABLET GT SCH (10:03)
[2017-11-06] MEDS: PYRIDOXINE 100mg TABLET GT SCH (10:04)
[2017-11-06] MEDS: LEVOTHYROXINE 200 MCG TABLET GT SCH (10:04)
--- NOTE | 2017-11-06 11:05 | Extended Care Facility Orders ---
Admission Orders Admit to:: [facility] Allergies/Adverse Reactions: Allergies amoxicillin Allergy (Unknown, Verified 11/03/17 12:19) vancomycin Allergy (Unknown, Verified 11/03/17 12:19) Admitting Diagnosis: pneumonia Admitting Physician: Wilfredo Carcamo MD Attending Physician: Wilfredo Carcamo MD Code Status: Full Code Anticiapted Length of Stay: greater than 30 days Rehab Potential: fair Rehab Prognosis: fair Diet: Speech recommendations NPO with frequent oral care. Pt requests pleasure feeds pureed. May use Facility Protocol or Standing Orders: Yes May have flu vaccine: Yes Indication for [facility]: Other - Additional Information In Event of Arrest: Start CPR,call 911,send patient to the ER Referrals: Harry Guillen MD [Family Provider] - Additional Orders: Continue with regular speech theapry consultations. Tube feeding-. Glucerna 1.2 AT 100MLS/HR X20 HOURS (4AM - MIDNIGHT), THEN DC FOR 4 HOURS (MIDNIGHT - 4AM). PROVIDE 80ml TID of free water
--- NOTE | 2017-11-06 11:20 | Discharge Summary ---
Discharge Information Date of admission: 11/03/17 13:57 Anticipated date of discharge: 11/06/17 Attending Physician: Wilfredo Carcamo MD Primary care physician: Harry Guillen MD Consults: none - Discharge Diagnosis (1) HCAP (healthcare-associated pneumonia) Status: Acute (2) Dysphagia Status: Chronic HCAP - present on admission, acute. Leukocytosis - present on admission (WBC 11.7). Anemia - present on admission (Hgb 13.2). Elevated LFTs - present on admission (AST 70, ALT 124). Hypertension. Dysphagia. CHF. Degenerative arthritis. Type 2 Diabetes. Hyperlipidemia. Glaucoma. GERD. Hard of hearing. History of prostate cancer - 1988. - Procedures Procedures: None - Laboratory Labs: 11/06/17 04:48 11/06/17 04:48 - Microbiology Microbiology 11/03/17 16:58 Sputum, Expectorated Gram Stain - Final 11/03/17 16:58 Sputum, Expectorated Sputum Culture - Final No Growth After 2 Days 11/03/17 14:30 Peripheral/Iv Start Blood Culture - Preliminary No Growth After 2 Days 11/03/17 14:34 Peripheral/Iv Start Blood Culture - Preliminary No Growth After 2 Days - Radiology Radiology: 11/03/17-chest [id number]: Lower lobe atelectasis, pneumonia or aspiration with small effusions. 11/04/17-chest x-ray- Impression: Improving aeration of the right lower lobe with persistent small effusions. - Pathology None History of Present Illness HPI: Ronaldo Philip is a pleasant 89-year-old resident of [facility] who follows with Dr. Ramirez. He [place] [facility] [place] after nursing expressed concern about productive cough with low grade fever and questionable aspiration at the detention. Upon arrival, he states that he feels fine and is unaware why he is here. While in the ED, labs were obtained and revealed mild leukocytosis ( WBC 11.7) and mild anemia (hgb 13.2). Chest x-ray revealed lower lobe atelectasis vs. pneumonia vs. aspiration with small effusion. He recently began taking more foods orally as he has a history of dysphagia with G-tube in place and nursing expressed concerns about possible aspiration. He reports that he has had "walking pneumonia" per Dr. Ramirez for "months and months" and "feels fine." Vital signs in the ED revealed temperature at 99 with tachypnea at 24 and reported hypoxia requiring 2L oxygen. He does not have a history of oxygen dependence. Due to his pneumonia with reported hypoxia, Dr. Carcamo was consulted and he was admitted to inpatient status for further evaluation, close respiratory monitoring, and IV antibiotics. His length of stay is expected to exceed more than 2 over nights. Objective Vital signs: Temperature 98.6 F 11/06/17 10:34 Pulse Rate 76 11/06/17 10:34 Respiratory Rate 20 11/06/17 10:34 Blood Pressure 148/77 H 11/06/17 10:34 Pulse Oximetry 93 11/06/17 10:34 Height/Weight/BMI: Height 1.73 m Weight 70.4 kg Body Mass Index 22.8 - Constitutional Present: no acute distress, well nourished, well developed - Routine HEENT Exam Eye: Present: EOMI ENT: Present: mucous membranes moist, dentition normal - Routine Respiratory Exam Present: diminished air movement (bilateral) - Routine Cardiovascular Exam Present: RRR, S1, S2. Absent: murmur - Routine Abdominal Exam Present: soft, normoactive bowel sounds, non distended. Absent: tenderness - Routine Skin Exam Present: intact, dry, warm - Routine Neurological Exam Present: alert, oriented X3, CN II-XII intact - Routine Lymphatic Exam Lymphatic: Absent: adenopathy - Routine Psychiatric Exam Present: normal affect, cooperative Hospital Course This is a general summary of the patient's hospital course. For more details refer to the complete medical record. Hospital course: Plan - 11/03/17 (Admission) Admit to inpatient status under the care of Dr. Carcamo and hospitalist service for treatment of HCAP. Respiratory panel was negative. Initiate Cefepime 1g Q6H and Levaquin 750mg daily for antimicrobial treatment of HCAP. Will try and obtain sputum culture. NS at 75cc/hr for gentle hydration. Monitor daily weight and urinary output closely. Keep patient NPO due to concerns of possible aspiration and dysphagia. Speech consulted for dysphagia screen and will provide diet recommendations. Patient has functional GT present which may be used for medications and nutritional supplement. Patient was initially reported to be hypoxic while in ED requiring 2L NC. Oxygen as needed to maintain SAO2 >90%, weaning as able. Encourage incentive spirometry for pulmonary toileting. Initiate Mucinex for mucolytic effect. DuoNeb QID and PRN as needed. Anemia appears to be chronic based on prior medical records. Will continue home medications including B vitamins, folate and iron. Continue home medications for a-fib and hypertension. Monitor closely on telemetry. Blood pressure noted to be elevated in ED. Will continue to monitor blood pressure closely. Monitor BGMs closely given history of diabetes which is currently diet controlled. Med reconciliation reveals no current diabetes medications. LFTs elevated on admission, though specimen was hemolyzed. Will continue to monitor. Recheck labs in AM to monitor blood counts, electrolytes and renal function. Upon discharge, patient's care will be returned to his PCP, Dr. Ramirez. Patient requests to be a FULL CODE at this time. 11/04/17 Clinically improving. Notes less cough/congestion. WBC normalized. Continue with Cefepime and Levaquin for antimicrobial coverage. Continue breathing treatments. D/C IVF as tolerating TF. Discussed with speech about his swallow function - very poor, patient not wanting to follow speech recommendations (want real food). Recheck lab in am. 11/05/17 Two episodes of loose stool. C- Diff is negative. Encourage Culturelle and will add Questran as needed Continue with Cefepime and Levaquin for antimicrobial tx of HCAP. Tolerating tube feedings without difficulty. Chronic swallowing is poor Blood sugars appear to be well controlled. Continue to follow daily electrolytes Hopeful for discharge in the next 1-2 days 11/06/17- Discharge Mr Philip is seen and examined prior to discharge. He is alert and pleasant and reports that he is feeling good. He is in agreement with discharge plan for today. He will return to [facility] where he [facility] resided. Recommend ongoing speech therapy given his significant chronic dysphagia. We will continue on current tube feedings, which include Glucerna 1.2 , and 100 ML per hour 20 hours (C4 a.m.-midnight) C. Then discontinue for 4 hours (midnight to 4 a.m. Continue to provide free water-80 mL 3 times a day. Overall dysphagia is somewhat concerning and speech therapy does continue to recommend nothing by mouth, with frequent oral care. However, patient request to have pleasure feedings. He is at high risk for persistent aspiration and dysphasia. This ongoing plan will need to be followed by his primary care provider, Dr. Guillen He will continue on antibiotics therapy 6 additional days, Levaquin 750mg PO. Encouraged to follow-up with primary care provider in one week. Discharged in stable condition. Time spent with patient: discharge greater than 30 minutes DVT Prophylaxis: SCD's Discharge Plan - Discharge Disposition Discharge Date: 11/06/17 Disposition: 04 To [facility] Home/Facility *Condition: Stable Reason For Visit (Visit label in EMR): pneumonia - Discharge Medications *Discharge Medications: New Albuterol/Ipratropium [Duoneb] 3 ml AEROSOL Q6H PRN each PRN Reason: Wheezing levoFLOXacin [Levaquin] 750 mg PO ACB 6 Days #6 tab Continue Thiamine HCl 100 mg GT DAILY #0 Pyridoxine HCl (Vitamin B6) [Pyridoxine HCl] 100 mg GT DAILY #0 Ferrous Sulfate 220 mg GT DAILY #0 diphenhydrAMINE HCl [Benadryl] 25 mg GT HS PRN #30 cap PRN Reason: INSOMNIA Insulin Glargine [Lantus] 10 unit SQ HS Lactobacillus Rhamnosus GG [Culturelle] 1 each GT DAILY Albuterol/Ipratropium [Duoneb] 3 ml IH RTBID ampul Dorzolamide/Timolol Eye Drops [Cosopt Ocumeter Plus] 1 drop RIGHT EYE BID Amiodarone [Pacerone] 100 mg GT DAILY Famotidine [Pepcid] 20 mg GT BID Fluticasone Nasal Delta [Flonase] 2 spray EA NOSTRIL PRN PRN PRN Reason: Dry Nasal Passages Latanoprost 1 drop EACH EYE HS Loperamide [Imodium] 4 mg PO QID PRN PRN Reason: Loose Stools Cholecalciferol (Vitamin D3) [Vitamin D3] 2,000 unit GT DAILY Folic Acid [Folate] 1 mg GT DAILY Bumetanide Tab [Bumex Tab] 1 mg GT DAILY Escitalopram Oxalate [Lexapro] 5 mg GT DAILY Levothyroxine Tab [Synthroid] 200 mcg GT DAILY - Discharge Packet/Instructions *Diet: NPO with tube feedings *Activity: As tolerated *Pain Management/Treatment: Tylenol as needed *Wound Care: N/A Additional Instructions: Tube feedings-. Glucerna 1.2 AT 100MLS/HR X20 HOURS ( 4AM - MIDNIGHT), THEN DC FOR 4 HOURS (MIDNIGHT - 4AM). PROVIDE 80ml TID of free water. Speech therapy did recommend nothing by mouth, with frequent oral care. However, patient requests pleasure feeds of. Diet. This will have to be followed with primary care provider as patient is at a significant chronic aspiration risk. *Expected Signs/Symptoms: Improvement in strength. He will continue to have chronic dysphagia and is a significant aspiration risk *Notify Physician if: Fever, chills, severe shortness of breath *During Business Hours Contact: Call Dr Guillen *After Business Hours Contact: Contact PCP or present to ER *Pending Lab/Results: No Pending Lab - Referrals/Follow Up *Referrals/Follow Up: Harry Guillen MD [Family Provider] - - Patient Handouts Patient Handouts: Pneumonitis (DC), Pneumonia (GEN) - Dismissal Complete Discharge Instructions are:: Complete Physician Narrative - Narrative Physician: Wilfredo Carcamo MD Attestation Narrative: Date: 11/06/17 Time: 1405 I have independently interviewed and examined patient prior to discharge. Chart reviewed. Case discussed with my FUNDING COORDINATOR. Care plan developed with my supervision; agree with above. Doing well today. Breathing stable. No nausea. No f/c. Feels ready for discharge. Lungs: decreased, no distress CV: regular AB: soft nt/nd MSE: awake alert appropriate Plan: Will discharge to for continued nursing care. Continue with levofloxacin for pulmonary coverage. F/U with Dr Guillen in 1 week. See orders for details. Medically stable for discharge to his nursing facility.
[2017-11-06] MEDS: LEVOFLOXACIN PB 750 MG/150 ML BAG IV SCH (12:25)
[2017-11-06 13:44] VITALS: BP 148/77; PULSE 96; RESP 20; TEMP 98.6; O2SAT 93
== END 2017-11-06 15:30 | DRG 195 ==
LOC: ED 12:10 → MED 13:57
PROVIDERS: ADMIT Hospitalist; ATTEND Hospitalist